=== PATIENT | female | born 1930 | race Caucasian/White ===

== ENCOUNTER 2017-03-30 15:47 | Inpatient (IN) | payer BC, OTHER ==
--- NOTE | 2017-03-30 18:37 | PDOC ---
History of Present Illness <Roxana Dooley - Last Filed: 03/30/17 21:57> - History of Present Illness Initial Comments: 03/30/17 20:32 Patient is an 86 year old female with significant medical hx of HLD, HTN, AFib ( on Xeralto/ Oxtalol), and COPD who is presenting to the ED with headache, generalized weakness, and progressive exertional dyspnea for one week. Patient characterizes her weakness as feeling tired and as if her "muscles are heavy". She states that her headache worsens with movement of her head. The patient also endorses loss of appetite. Patient was noted to have blood on her pillow on awakening two days ago. She is unsure of whether it was from epistaxis or oral bleeding, so she decided to discontinue her Xeralto. The patient denies any fevers, chills, recent illnesses, recent travel, melena, hematemesis, cough, chest pain, vertigo, hempotysis, weakness, dizziness, lightheadedness, or syncope. PMD: Joy Gan MD Surgical Hx: Right BKA <Lexi Tony - Last Filed: 03/30/17 22:57> - General Chief Complaint: Weakness Stated Complaint: NOSE BLEED (PCP SENT) Past History - Past Medical History Anemia: No Asthma: No Cancer: No Cardiac Disorders: Yes (afib) CVA: No COPD: Yes CHF: No Dementia: No Diabetes: No GI Disorders: (IBS) Disorders: No HTN: Yes Hypercholesterolemia: No Liver Disease: No Seizures: No Thyroid Disease: No - Surgical History Abdominal Surgery: No Appendectomy: Yes Cardiac Surgery: No Cholecystectomy: No GI Surgery: Yes (cystocel, rectocele, enterocele, hemorrhoids) Lung Surgery: No Neurologic Surgery: No Orthopedic Surgery: No - Immunization History Immunization Up to Date: Yes - Psycho/Social/Smoking Cessation Hx Anxiety: No Suicidal Ideation: No Smoking History: Never smoked Have you smoked in the past 12 months: No Hx Alcohol Use: No Drug/Substance Use Hx: No Substance Use Type: None <Roxana Dooley - Last Filed: 03/30/17 21:57> <Lexi Tony - Last Filed: 03/30/17 22:57> - Past Medical History Allergies/Adverse Reactions: Allergies Allergy/AdvReac Type Severity Reaction Status Date / Time No Known Allergies Allergy Verified 03/30/17 16:31 Home Medications: Ambulatory Orders Amlodipine Besylate [Norvasc -] 5 mg PO DAILY 12/03/15 Atorvastatin Ca [Lipitor] 5 mg PO HS 12/03/15 Ranitidine HCl [Zantac] 150 mg PO BID 12/03/15 Sotalol HCl [Sotalol] 40 mg PO DAILY 12/03/15 Acetaminophen [Tylenol .Regular Strength -] 325 mg PO Q6H PRN #0 tablet Aspirin [ASA -] 81 mg PO DAILY 03/30/17 Gabapentin [Neurontin -] 300 mg PO HS 03/30/17 Losartan/Hydrochlorothiazide [Losartan-Hctz 50-12.5 mg Tab] 1 each PO DAILY Rivaroxaban [Xarelto] 20 each PO HS 03/30/17 Review of Systems - Review of Systems Comments:: 03/30/17 20:32 GENERAL/CONSTITUTIONAL: Generalized weakness. Loss of appetite. No fever or chills. HEAD, EYES, EARS, NOSE AND THROAT: Questionable bleeding. No change in vision. No ear pain or discharge. No sore throat. CARDIOVASCULAR: No chest pain or shortness of breath. RESPIRATORY: Dyspnea on exertion. No cough, wheezing, or hemoptysis. GASTROINTESTINAL: No nausea, vomiting, diarrhea or constipation. GENITOURINARY: No dysuria, frequency, or change in urination. MUSCULOSKELETAL: No joint or muscle swelling or pain. No neck or back pain. ENDOCRINE: No increased thirst. No abnormal weight change. SKIN: No rash NEUROLOGIC: Headache. No vertigo, loss of consciousness, or change in strength/ sensation. <Lexi Tony - Last Filed: 03/30/17 22:57> *Physical Exam - Vital Signs Last Vital Signs Temp Pulse Resp BP Pulse Ox 95.0 F L 74 20 140/76 94 L 03/30/17 16:31 03/30/17 16:31 03/30/17 16:31 03/30/17 16:31 03/30/17 16:31 <Roxana Dooley - Last Filed: 03/30/17 21:57> - Vital Signs Last Vital Signs Temp Pulse Resp BP Pulse Ox 98.2 F 74 20 140/76 94 L 03/30/17 19:31 03/30/17 16:31 03/30/17 16:31 03/30/17 16:31 03/30/17 16:31 - Physical Exam Comments: 03/30/17 20:32 GENERAL: Awake, alert, and fully oriented, in no acute distress HEAD: No signs of trauma EYES: PERRLA, EOMI, sclera anicteric, conjunctiva clear ENT: Auricles normal inspection, hearing grossly normal, nares patent, oropharynx clear without exudates. Moist mucosa NECK: Normal ROM, supple, no lymphadenopathy, JVD, or masses LUNGS: Breath sounds equal, clear to auscultation bilaterally. No wheezes, and no crackles HEART: Regular rate and rhythm, normal S1 and S2, no murmurs, rubs or gallops ABDOMEN: Soft, nontender, normoactive bowel sounds. No guarding, no rebound. No masses EXTREMITIES: Normal range of motion, no edema. No clubbing or cyanosis. No cords, erythema, or tenderness NEUROLOGICAL: Cranial nerves II through XII grossly intact. Normal speech, normal gait SKIN: Warm, Dry, normal turgor, no rashes or lesions noted. HEMATOLOGIC/LYMPHATIC: No anemia, easy bleeding, or history of blood clots. ALLERGIC/IMMUNOLOGIC: No hives or skin allergy. <Lexi Tony - Last Filed: 03/30/17 22:57> Heart Score/ECG Review - ECG Intrepretation Rhythm: Regular Rhythm Comment:: 03/30/17 21:57 rate 66 bpm, no st elevation or depression <Roxana Dooley - Last Filed: 03/30/17 21:57> ED Treatment Course - LABORATORY CBC & Chemistry Diagram: 03/30/17 19:00 03/30/17 20:20 <Roxana Dooley - Last Filed: 03/30/17 21:57> - LABORATORY CBC & Chemistry Diagram: 03/30/17 19:00 03/30/17 20:20 - ADDITIONAL ORDERS Additional order review: Laboratory Results 03/30/17 18:52 Sodium Cancelled Potassium Cancelled Chloride Cancelled Carbon Dioxide Cancelled Anion Gap Cancelled BUN Cancelled Creatinine Cancelled Creat Clearance w eGFR Cancelled Random Glucose Cancelled Calcium Cancelled Total Bilirubin Cancelled AST Cancelled ALT Cancelled Alkaline Phosphatase Cancelled Creatine Kinase Cancelled Troponin I Cancelled Total Protein Cancelled Albumin Cancelled 03/30/17 19:00 RBC 4.00 MCV 89.0 MCHC 33.2 RDW 14.2 D MPV 8.2 D Neutrophils % 58.9 Lymphocytes % 26.3 Monocytes % 11.5 H Eosinophils % 2.4 Basophils % 0.9 - RADIOLOGY Radiograph Interpretation: 03/30/17 22:[address] Impression: No evidence of acute intracranial pathology. Reported By: Greg Howell MD - Medications Given in the ED: ED Medications Discontinued Medications Generic Name Dose Route Start Last Admin Trade Name Keiry PRN Reason Stop Dose Admin Sodium Chloride 500 ml 03/30/17 18:55 03/30/17 19:24 Normal Saline - IV 03/30/17 18:56 500 ml ONCE ONE Administration <Lexi Tony - Last Filed: 03/30/17 22:57> Medical Decision Making - Medical Decision Making 03/30/17 18:35 86 yo F h/o HTN, aortic stenosis, here wtih /co mouth bleeding/ not witness, but found blood on pillow two nights ago, held xarelto for 2 days ago, no rectal bleeding, no dysuria, no hematuria. lives at [facility], here wtih daughter. weakness generalized, nonfocal. differential: anemia, gi bleed, infection such as uti, or pna, mi, plan ekg labs ua trop cbc lytes . reassess. 03/30/17 21:29 pt has never had low sodium per d/w dr. sheriff pt with symptomatic hyponatremia. will add ct head per d/w maxwelle rpt with new headache, possibly likley due to hyponatrema. <Roxana Dooley - Last Filed: 03/30/17 21:57> *DC/Admit/Observation/Transfer - Discharge Dispostion Admit: Yes <Roxana Dooley - Last Filed: 03/30/17 21:57> - Attestations Scribe Attestion: 03/30/17 20:33 Documentation prepared by Lexi Tony, acting as medical apparatus model maker for Roxana Dooley MD. <Lexi Tony - Last Filed: 03/30/17 22:57> Diagnosis at time of Disposition: Hyponatremia syndrome - Referrals Referrals: Joy Gan [Primary Care Provider] -
[2017-03-30] MEDS ORDERED: SODIUM CHLORIDE 0.9% 1000 ML INFUS.BAG IV ONE (18:55)
[2017-03-30 19:07] LABS: BASOPHIL 0.9 % (0-2.0); EOSINOPHIL 2.4 % (0-4.5); MCH 29.5 pg (25.7-33.7); MCHC 33.2 g/dl (32.0-36.0); MEAN PLT VOLUME 8.2 fl (7.5-11.1); NEUTROPHILS 58.9 % (42.8-82.8); RDW 14.2 % (11.6-15.6); WHITE BLOOD COUNT 7.5 K/mm3 (4.0-10.0)
[2017-03-30 19:29] LABS: INR 1.12 (0.82-1.09); PROTHROMBIN TIME (PATIENT) 12.4 SEC (9.98-11.88)
[2017-03-30 20:04] LABS: URINE APPEARANCE SLCLOUDY; URINE BILIRUBIN NEGATIVE (NEGATIVE); URINE COLOR LTYELLOW; URINE GLUCOSE (UA) NEGATIVE (NEGATIVE); URINE KETONE TRACE (NEGATIVE); URINE LEUK ESTERASE NEGATIVE (NEGATIVE); URINE NITRITE NEGATIVE (NEGATIVE); URINE PROTEIN NEGATIVE (NEGATIVE); URINE UROBILINOGEN NEGATIVE E.U./dl (0.2-1.0)
[2017-03-30 20:20] LABS: PLATELET COMMENT2 MOD PLT CLUMPING
[2017-03-30 20:51] LABS: URINE BLOOD 2+ (NEGATIVE)
[2017-03-30 20:59] LABS: ALBUMIN 3.5 g/dl (3.4-5.0); ANION GAP 12 (8-16); BILIRUBIN,TOTAL 0.5 mg/dL (0.2-1.0); CALCIUM 8.5 mg/dL (8.5-10.1); CO2 25 mmol/L (21-32); COCKROFT - GAULT 55.6835; CREATININE 0.7 mg/dL (0.55-1.02); GLUCOSE,RANDOM 107 mg/dL (74-106); SGOT/AST 24 U/L (15-37); SGPT/ALT 18 U/L (12-78); TOT PROT 7.6 g/dl (6.4-8.2)
[2017-03-30 21:01] LABS: ALK PHOS 107 U/L (45-117); TROPONIN I < 0.02 ng/ml (0.00-0.05)
[2017-03-30 22:18] LABS: URINE BACTERIA MODERATE /hpf (NONE SEEN); URINE MUCUS RARE; URINE RBC 17 /hpf (0-3); URINE WBC 1 /hpf (3-5)
[2017-03-30] MEDS ORDERED: ACETAMINOPHEN 325 MG TABLET (FP) PO PRN (22:27)
[2017-03-30] MEDS ORDERED: ACETAMINOPHEN 325 MG TABLET (FP) ONE (22:32)
[2017-03-30 23:39] LABS: BASOPHIL 0.7 % (0-2.0); EOSINOPHIL 2.9 % (0-4.5); MCH 29.4 pg (25.7-33.7); MCHC 33.4 g/dl (32.0-36.0); MEAN CELL VOLUME 87.9 fl (80-96); MEAN PLT VOLUME 7.2 fl (7.5-11.1); NEUTROPHILS 60.8 % (42.8-82.8); PLATELET COUNT 206 K/MM3 (134-434); RDW 14.1 % (11.6-15.6); WHITE BLOOD COUNT 6.3 K/mm3 (4.0-10.0)
[2017-03-31 00:28] VITALS: BMI 25.6
--- NOTE | 2017-03-31 05:55 | HP ---
Admitting History and Physical - Primary Care Physician PCP: Joy Gan S - Admission Chief Complaint: epistaxis, general weakness History of Present Illness: Patient is an 86 year old female with significant medical hx of HLD, HTN, AFib ( on Xeralto), and COPD who is presenting to the ED with headache, generalized weakness, and progressive exertional dyspnea for one week. Patient characterizes her weakness as feeling tired and as if her "muscles are heavy". She states that her headache worsens with movement of her head. The patient also endorses loss of appetite. Patient was noted to have blood on her pillow on awakening two days ago. She is unsure of whether it was from epistaxis or oral bleeding, but had some blood on her nostrils so she decided to discontinue her Xeralto. The patient denies any fevers, chills, recent illnesses, recent travel, melena, hematemesis, cough, chest pain, vertigo, hempotysis, weakness, dizziness, lightheadedness, or syncope. History Source: Patient, Family Member - Past Medical History Cardiovascular: Yes: CAD, HTN, Hyperlipdemia Pulmonary: Yes: COPD Gastrointestinal: Yes: Cancer, Constipation Musculoskeletal: Yes: Chronic low back pain, Osteoarthritis - Smoking History Smoking history: Never smoked Have you smoked in the past 12 months: No - Alcohol/Substance Use Hx Alcohol Use: No History of Substance Use: reports: None - Social History Usual Living Arrangement: Yes: Alone ADL: Independent History of Recent Travel: No Home Medications - Allergies Allergies/Adverse Reactions: Allergies Allergy/AdvReac Type Severity Reaction Status Date / Time No Known Allergies Allergy Verified 03/30/17 16:31 - Home Medications Home Medications: Ambulatory Orders Amlodipine Besylate [Norvasc -] 5 mg PO DAILY 12/03/15 Atorvastatin Ca [Lipitor] 5 mg PO HS 12/03/15 Ranitidine HCl [Zantac] 150 mg PO BID 12/03/15 Sotalol HCl [Sotalol] 40 mg PO DAILY 12/03/15 Acetaminophen [Tylenol .Regular Strength -] 325 mg PO Q6H PRN #0 tablet Aspirin [ASA -] 81 mg PO DAILY 03/30/17 Gabapentin [Neurontin -] 300 mg PO HS 03/30/17 Losartan/Hydrochlorothiazide [Losartan-Hctz 50-12.5 mg Tab] 1 each PO DAILY Rivaroxaban [Xarelto] 20 each PO HS 03/30/17 Family Disease History - Family Disease History Family History: Unremarkable Review of Systems - Review of Systems Constitutional: denies: Chills, Fever, Lethargy Eyes: denies: Blind Spots, Blurred Vision, Double Vision HENT: reports: Epistaxis. denies: Difficult Swallowing, Ear Pain, Gingival Bleeding Neck: reports: Decreased ROM, Pain on Movement. denies: Stiffness, Swollen Glands, Tenderness Cardiovascular: reports: Shortness of Breath. denies: Chest Pain Respiratory: reports: Exercise Intolerance, SOB, SOB on Exertion. denies: Cough , Hemoptysis Gastrointestinal: denies: Abdominal Pain, Bloating, Constipation, Diarrhea, Vomiting, Vomiting Blood Genitourinary: reports: Burning. denies: Dysuria, Flank Pain Musculoskeletal: reports: Back Pain (chronic) Integumentary: denies: Bruising, Rash Neurological: reports: Unsteady Gait. denies: Change in LOC, Change in Speech, Confusion, Seizure, Syncope Hematology/Lymphatic: denies: Easily Bruised, Excessive Bleeding Psychiatric: reports: Altered Sleep Pattern, Anxiety, Depression. denies: Suicidal Physical Examination Vital Signs: Vital Signs Temperature 97.2 F L 03/31/17 00:16 Pulse Rate 68 03/31/17 00:16 Respiratory Rate 20 03/31/17 00:34 Blood Pressure 139/78 03/31/17 00:16 O2 Sat by Pulse Oximetry (%) 97 03/31/17 00:34 Constitutional: Yes: No Distress, Calm Eyes: Yes: Conjunctiva Clear HENT: Yes: Atraumatic Neck: Yes: Supple Cardiovascular: Yes: Regular Rate and Rhythm Respiratory: Yes: CTA Bilaterally Gastrointestinal: Yes: Soft. No: Distention, Tenderness Renal/: No: CVA Tenderness - Left, CVA Tenderness - Right, Hematuria Musculoskeletal: No: Joint Stiffness, Joint Swelling Extremities: No: Cold, Cool Edema: No Peripheral Pulses WNL: Yes Integumentary: No: Rash, Venous Stasis Changes Neurological: Yes: WNL, Alert, Oriented, Unsteady Gait. No: Lethargy, Pre- Existing Deficit ...Motor Strength: WNL Psychiatric: Yes: WNL, Alert, Oriented. No: Agitated, Suicidal Ideation Labs: CBC, BMP 03/30/17 23:00 Imaging - Results Chest X-ray: Report Reviewed Other: Report Reviewed Assessment/Plan Patient is an 86 year old female with significant medical hx of HLD, HTN, AFib ( on Xeralto/ Oxtalol), and COPD who is presenting to the ED with headache, generalized weakness, and progressive exertional dyspnea for one week. Also with one episode of epistaxis self discontinued her Xeralto. admit for ENT and cardiology eval fall pfx d/w pt do not get OOB alone, call for help if needs OOB; PT rehab and pain mngt eval bed alarm hold xarelto until cleared by ENT d/w pt and staff
[2017-03-31] MEDS: amLODIPine BESYLATE 5 MG TABLET (FP) PO SCH (10:23)
[2017-03-31] MEDS: SOTALOL HCL 80 MG TABLET (FP) PO SCH (10:23)
[2017-03-31] MEDS: RANITIDINE HCL 150 MG TABLET (FP) PO SCH ×2 (10:23→21:51)
[2017-03-31] MEDS: LOSARTAN POTASSIUM 50 MG TABLET (FP) PO SCH (10:23)
[2017-03-31] MEDS: ASPIRIN 81 MG CHEWABLE TABLETS PO SCH (10:23)
[2017-03-31] MEDS: HEPARIN NA (PORCINE) 5,000 UNITS/ML 1ML VIAL SQ SCH ×2 (10:24→21:51)
[2017-03-31 11:07] LABS: ALBUMIN 3.3 g/dl (3.4-5.0); ANION GAP 11 (8-16); BILIRUBIN,TOTAL 0.5 mg/dL (0.2-1.0); CALCIUM 8.6 mg/dL (8.5-10.1); CO2 29 mmol/L (21-32); COCKROFT - GAULT 55.6835; CREATININE 0.7 mg/dL (0.55-1.02); GLUCOSE,RANDOM 113 mg/dL (74-106); SGOT/AST 21 U/L (15-37); SGPT/ALT 18 U/L (12-78)
[2017-03-31 11:17] LABS: ALK PHOS 106 U/L (45-117); THYROID STIMULATING HORMONE 1.95 uIU/ml (0.358-3.74); TOT PROT 7.3 g/dl (6.4-8.2); TROPONIN I < 0.02 ng/ml (0.00-0.05)
[2017-03-31] MEDS: SODIUM CHLORIDE 1 GM TABLET PO SCH (15:24)
--- NOTE | 2017-03-31 16:16 | EKG ---
Test Reason : Blood Pressure : / mmHG Vent. Rate : 066 BPM Atrial Rate : 066 BPM P-R Int : 214 ms QRS Dur : 084 ms QT Int : 460 ms P-R-T Axes : -10 052 045 degrees QTc Int : 482 ms SINUS RHYTHM WITH 1ST DEGREE A-V BLOCK NONSPECIFIC ST AND T WAVE ABNORMALITY ABNORMAL ECG WHEN COMPARED WITH ECG OF 08-DEC-2015 14:54, QUESTIONABLE CHANGE IN QRS AXIS T WAVE INVERSION NO LONGER EVIDENT IN INFERIOR LEADS Confirmed by MESHA JACKSON MD ([id number]) on 03/31/2017 4:15:41 PM Referred By: Confirmed By:MESHA JACKSON MD
[2017-03-31] MEDS ORDERED: diphenhydrAMINE HCL 25 MG CAPSULE (FP) PO STA (21:36)
[2017-03-31] MEDS: ATORVASTATIN CA 10 MG TABLET (FP) PO SCH (21:48)
[2017-03-31] MEDS: GABAPENTIN 300 MG CAPSULE (FP) PO SCH (21:51)
--- NOTE | 2017-04-01 06:19 | CON.CARD ---
Consult Consult Specialty:: cardiology Reason for Consultation:: epistaxsis - History of Present Illness Chief Complaint: Alert; easily fatigued (eg cannot finish her meal, saying it makes her tired and short of breath). History of Present Illness: Patient is an 86 year old woman with significant medical hx of severe aortic stenosis, HLD, HTN, AFib (on Xeralto/ Oxtalol), diastolic CHF, anxiety/ depression (worsened by the of her son late last year), and COPD, who is presenting to the ED with headache, generalized weakness, and progressive exertional dyspnea for one week. Patient characterizes her weakness as feeling tired and as if her "muscles are heavy". She states that her headache worsens with movement of her head. The patient also endorses loss of appetite. Patient was noted to have blood on her pillow on awakening two days ago. She is unsure of whether it was from epistaxis or oral bleeding, so she decided to discontinue her Xeralto. The patient denies any fevers, chills, recent illnesses, recent travel, melena, hematemesis, cough, chest pain, vertigo, hempotysis, weakness, dizziness, lightheadedness, or syncope. PMD: Joy Gan MD Surgical Hx: Right BKA - History Source History Provided By: Patient, Family Member, Medical Record Limitations to Obtaining History: No Limitations - Past Medical History Cardio/Vascular: Yes: AFIB, Aortic Stenosis, CAD, HTN, Hyperlipdemia, Murmur, Pulmonary Hypertension Pulmonary: Yes: COPD Gastrointestinal: Yes: Cancer, Constipation Renal/: Yes: Renal Inusuff Reproductive: Yes: Postmenopausal ...: No Psych: Yes: Anxiety, Depression - Past Surgical History Additional Surgical History: coronary angiogram; s/p LE pseudoaneurysm - Alcohol/Substance Use Hx Alcohol Use: No History of Substance Use: reports: None - Smoking History Smoking history: Never smoked Have you smoked in the past 12 months: No - Social History ADL: Independent History of Recent Travel: No Home Medications - Allergies Allergies/Adverse Reactions: Allergies Allergy/AdvReac Type Severity Reaction Status Date / Time No Known Allergies Allergy Verified 03/30/17 16:31 - Home Medications Home Medications: Ambulatory Orders Amlodipine Besylate [Norvasc -] 5 mg PO DAILY 12/03/15 Atorvastatin Ca [Lipitor] 5 mg PO HS 12/03/15 Ranitidine HCl [Zantac] 150 mg PO BID 12/03/15 Sotalol HCl [Sotalol] 40 mg PO DAILY 12/03/15 Acetaminophen [Tylenol .Regular Strength -] 325 mg PO Q6H PRN #0 tablet Aspirin [ASA -] 81 mg PO DAILY 03/30/17 Gabapentin [Neurontin -] 300 mg PO HS 03/30/17 Losartan/Hydrochlorothiazide [Losartan-Hctz 50-12.5 mg Tab] 1 each PO DAILY Rivaroxaban [Xarelto] 20 each PO HS 03/30/17 Family Disease History - Family Disease History Family History: Denies Review of Systems - Review of Systems Constitutional: reports: Loss of Appetite, Weakness Eyes: reports: No Symptoms HENT: reports: Epistaxis Neck: reports: No Symptoms Cardiovascular: reports: Shortness of Breath Respiratory: reports: SOB on Exertion Gastrointestinal: reports: No Symptoms Genitourinary: reports: No Symptoms Breasts: reports: No Symptoms Reported Musculoskeletal: reports: Muscle Weakness Integumentary: reports: No Symptoms Neurological: reports: Weakness Endocrine: reports: No Symptoms Hematology/Lymphatic: reports: No Symptoms Psychiatric: reports: Anxiety, Depression - Risk Factors Known Risk Factors: Yes: Age, Physical Inactivity, Other (severe aortic stenosis ; pulmonary HTN) Vital Signs: Vital Signs Temperature 97.5 F L 03/31/17 21:46 Pulse Rate 71 03/31/17 21:46 Respiratory Rate 20 03/31/17 21:46 Blood Pressure 146/78 03/31/17 21:46 O2 Sat by Pulse Oximetry (%) 96 03/31/17 22:00 Constitutional: Yes: Anxious Eyes: Yes: WNL HENT: Yes: WNL Neck: Yes: WNL Respiratory: Yes: SOB on Exertion Gastrointestinal: Yes: WNL Renal/: No: Anuria Cardiovascular: Yes: Regular Rate and Rhythm JVD: No Carotid Bruit: No PMI: Non-Displaced Heart Sounds: Yes: S1 (split) Murmur: Yes: Systolic Murmur, Grade 3 Musculoskeletal: Yes: Muscle Weakness Extremities: Yes: WNL Edema: No Peripheral Pulses WNL: No Peripheral Pulses: 1+ Right Carotid Integumentary: Yes: WNL Neurological: Yes: Alert, Oriented, Weakness Psychiatric: Yes: Alert, Oriented, Other (depression) - Other Data Labs, Other Data: CBC, BMP 03/30/17 23:00 03/31/17 09:54 INR, PTT INR 1.12 (0.82-1.09) 03/30/17 18:52 Troponin, BNP 03/31/17 09:54 Troponin I < 0.02 Troponin, BNP 03/31/17 09:54 Troponin I < 0.02 Abnormal Lab Results 03/31/17 09:54 Sodium 126 L Chloride 86 L Random Glucose 113 H Albumin 3.3 L Echo: Image Reviewed (normal LVEF and LV size; mild LVH; severe aortic stenosis) Ejection Fraction %: LVEF > or = 40 % Imaging - Results Chest X-ray: Image Reviewed (bilateral interstitial lung disease) EKG: Image Reviewed (normal sinus rhythm; nonspecific ST-T changes) Problem List - Problems (1) Atrial fibrillation Assessment/Plan: On sotalol. Anticoagulant held while pt undergoes ENT workup. Code(s): I48.91 - UNSPECIFIED ATRIAL FIBRILLATION (2) COPD (chronic obstructive pulmonary disease) Assessment/Plan: f/u with electrical manager Code(s): J44.9 - CHRONIC OBSTRUCTIVE PULMONARY DISEASE, UNSPECIFIED (3) HTN (hypertension) Assessment/Plan: On sotalol, amlodipine, and ARB. Code(s): I10 - ESSENTIAL (PRIMARY) HYPERTENSION (4) Hyponatremia Assessment/Plan: being given saline; f/u electrolytes, workup. Code(s): E87.1 - HYPO-OSMOLALITY AND HYPONATREMIA (5) Severe aortic stenosis Assessment/Plan: Long discussion was had with pt (granddaughter present during the second visit) . Pt says that, after the of her son 08/2016, she lost the will to live, and does not want to have aortic valve surgery (TAVR). Complications after a coronary angiogram (pseudoaneurysm) also makes her reluctant to have any more procedures. Code(s): I35.0 - NONRHEUMATIC AORTIC (VALVE) STENOSIS (6) Diastolic CHF Code(s): I50.30 - UNSPECIFIED DIASTOLIC (CONGESTIVE) HEART FAILURE (7) Depression Assessment/Plan: Psychologic workup (pt says she has lost the will to live since the of her son 08/2016). Code(s): F32.9 - MAJOR DEPRESSIVE DISORDER, SINGLE EPISODE, UNSPECIFIED
[2017-04-01 08:35] LABS: BASOPHIL 0.9 % (0-2.0); EOSINOPHIL 4.7 % (0-4.5); MCH 30.1 pg (25.7-33.7); MCHC 34.1 g/dl (32.0-36.0); MEAN CELL VOLUME 88.1 fl (80-96); MEAN PLT VOLUME 7.8 fl (7.5-11.1); NEUTROPHILS 55.6 % (42.8-82.8); PLATELET COUNT 186 K/MM3 (134-434); RDW 13.9 % (11.6-15.6); WHITE BLOOD COUNT 5.6 K/mm3 (4.0-10.0)
[2017-04-01 09:05] LABS: CALCIUM 8.1 mg/dL (8.5-10.1); COCKROFT - GAULT 48.722; CREATININE 0.8 mg/dL (0.55-1.02)
[2017-04-01] MEDS ORDERED: PT OWN MED DRAWER 7, Y5N ONE (09:38)
[2017-04-01] MEDS: ASPIRIN 81 MG CHEWABLE TABLETS PO SCH (09:41)
[2017-04-01] MEDS: amLODIPine BESYLATE 5 MG TABLET (FP) PO SCH (09:42)
[2017-04-01] MEDS: HEPARIN NA (PORCINE) 5,000 UNITS/ML 1ML VIAL SQ SCH ×2 (09:42→21:50)
[2017-04-01] MEDS: LOSARTAN POTASSIUM 50 MG TABLET (FP) PO SCH (09:42)
[2017-04-01] MEDS: RANITIDINE HCL 150 MG TABLET (FP) PO SCH ×2 (09:42→21:48)
[2017-04-01] MEDS: SODIUM CHLORIDE 1 GM TABLET PO SCH (09:42)
[2017-04-01] MEDS: SOTALOL HCL 80 MG TABLET (FP) PO SCH (09:42)
--- NOTE | 2017-04-01 10:01 | PN ---
Progress Note, Physician History of Present Illness: seen and examined today in nad. no overnight events. no new complaints. thinking about AVR - Current Medication List Current Medications: Active Medications Acetaminophen (Tylenol -) 325 mg PO Q6H PRN PRN Reason: PAIN LEVEL 6-10 Last Admin: 03/30/17 22:39 Dose: 325 mg Amlodipine Besylate (Norvasc -) 5 mg PO DAILY [facility] Last Admin: 04/01/17 09:42 Dose: 5 mg Aspirin (Asa -) 81 mg PO DAILY [facility] Last Admin: 04/01/17 09:41 Dose: 81 mg Atorvastatin Calcium (Lipitor -) 5 mg PO HS [facility] Last Admin: 03/31/17 21:48 Dose: 5 mg Gabapentin (Neurontin -) 300 mg PO HS [facility] Last Admin: 03/31/17 21:51 Dose: 300 mg Heparin Sodium (Porcine) (Heparin -) 5,000 unit SQ BID [facility] Last Admin: 04/01/17 09:42 Dose: 5,000 unit Losartan Potassium (Cozaar -) 50 mg PO DAILY [facility] Last Admin: 04/01/17 09:42 Dose: 50 mg Ranitidine HCl (Zantac -) 150 mg PO BID [facility] Last Admin: 04/01/17 09:42 Dose: 150 mg Sodium Chloride (Sodium Chloride Tablet -) 1 gm PO DAILY [facility] Last Admin: 04/01/17 09:42 Dose: 1 gm Sotalol HCl (Betapace -) 40 mg PO DAILY [facility] Last Admin: 04/01/17 09:42 Dose: 40 mg - Objective Vital Signs: Vital Signs Temperature 97.7 F 04/01/17 06:00 Pulse Rate 75 04/01/17 06:00 Respiratory Rate 20 04/01/17 06:00 Blood Pressure 117/71 04/01/17 06:00 O2 Sat by Pulse Oximetry (%) 96 03/31/17 22:00 Constitutional: Yes: Well Nourished, No Distress, Calm Eyes: Yes: WNL, Conjunctiva Clear, EOM Intact, PERRL HENT: Yes: WNL, Atraumatic, Normocephalic Neck: Yes: WNL, Supple, Trachea Midline Cardiovascular: Yes: Regular Rate and Rhythm, Murmur, S1. No: Bradycardia, Tachycardia, Pulse Irregular, Bruit, JVD, Gallop, Rub, S2, S3, S4, Varicosities Respiratory: Yes: WNL, Regular, CTA Bilaterally. No: Rales, Rhonchi, Wheezes Gastrointestinal: Yes: WNL, Normal Bowel Sounds, Soft. No: Distention, Tenderness Musculoskeletal: Yes: WNL Extremities: Yes: WNL Edema: No Peripheral Pulses WNL: Yes Peripheral Pulses: Left Doralis Pedis: 2+, Right Dorsalis Pedis: 2+ Integumentary: Yes: WNL Neurological: Yes: Alert, Oriented, Cran Nerves II-XII Intact Psychiatric: Yes: Alert, Oriented Labs: CBC, BMP 04/01/17 07:00 04/01/17 07:00 INR, PTT INR 1.12 (0.82-1.09) 03/30/17 18:52 - ....Imaging Chest X-ray: Report Reviewed, Image Reviewed EKG: Report Reviewed, Image Reviewed Other: Report Reviewed, Image Reviewed Assessment/Plan 86 year old woman with a history of severe refused SAVR/TAVR in past, HTN, HLD, afib, chronic diastolic CHF, depression, COPD admitted with gen weakness, headache, moran, oral bleeding. Atrial fibrillation-controlled -cont sotalol, monitor EKG routinely on sotalol for QTc prolongation -of Xarelto for bleeding until ENT evaluation which is pending -cont ASA 81mg daily for now Severe Aortic Stenosis-refused SAVR/TAVR in past -pt reconsidering AVR this am, she will think about it further and discuss with family then discuss further with her electrician wiring Dr. Medrano HTN-adequately controlled currently -cont current meds Chronic diastolic CHF-currently euvolemic -does not require diuresis at this time HLD -cont statin
--- NOTE | 2017-04-01 11:04 | PN ---
Progress Note, Physician Chief Complaint: in bed nad no new c/o; no new epistaxis or bleed but not seen by ENT yet, called in consult seen by cardio; suggested surgical eval for airtic stenosis but pt reluctant to have surgery - Current Medication List Current Medications: Active Medications Acetaminophen (Tylenol -) 325 mg PO Q6H PRN PRN Reason: PAIN LEVEL 6-10 Last Admin: 03/30/17 22:39 Dose: 325 mg Amlodipine Besylate (Norvasc -) 5 mg PO DAILY [facility] Last Admin: 04/01/17 09:42 Dose: 5 mg Aspirin (Asa -) 81 mg PO DAILY [facility] Last Admin: 04/01/17 09:41 Dose: 81 mg Atorvastatin Calcium (Lipitor -) 5 mg PO HS [facility] Last Admin: 03/31/17 21:48 Dose: 5 mg Gabapentin (Neurontin -) 300 mg PO HS [facility] Last Admin: 03/31/17 21:51 Dose: 300 mg Heparin Sodium (Porcine) (Heparin -) 5,000 unit SQ BID [facility] Last Admin: 04/01/17 09:42 Dose: 5,000 unit Losartan Potassium (Cozaar -) 50 mg PO DAILY [facility] Last Admin: 04/01/17 09:42 Dose: 50 mg Ranitidine HCl (Zantac -) 150 mg PO BID [facility] Last Admin: 04/01/17 09:42 Dose: 150 mg Sodium Chloride (Sodium Chloride Tablet -) 1 gm PO DAILY [facility] Last Admin: 04/01/17 09:42 Dose: 1 gm Sotalol HCl (Betapace -) 40 mg PO DAILY [facility] Last Admin: 04/01/17 09:42 Dose: 40 mg - Objective Vital Signs: Vital Signs Temperature 97.7 F 04/01/17 06:00 Pulse Rate 75 04/01/17 06:00 Respiratory Rate 20 04/01/17 06:00 Blood Pressure 117/71 04/01/17 06:00 O2 Sat by Pulse Oximetry (%) 96 03/31/17 22:00 Constitutional: Yes: No Distress, Calm Eyes: Yes: Conjunctiva Clear HENT: Yes: Atraumatic Neck: Yes: Supple Cardiovascular: Yes: Regular Rate and Rhythm Respiratory: Yes: CTA Bilaterally Gastrointestinal: Yes: Soft. No: Distention, Tenderness Genitourinary: No: CVA Tenderness - Left, CVA Tenderness - Right Musculoskeletal: No: Joint Stiffness, Joint Swelling Extremities: No: Cold, Cool Edema: No Integumentary: No: Rash, Venous Stasis Changes Neurological: Yes: WNL, Alert, Oriented ...Motor Strength: WNL Psychiatric: Yes: WNL, Alert, Oriented. No: Agitated Labs: CBC, BMP 04/01/17 07:00 04/01/17 07:00 INR, PTT INR 1.12 (0.82-1.09) 03/30/17 18:52 - ....Imaging Other: Report Reviewed Assessment/Plan Patient is an 86 year old female with significant medical hx of HLD, HTN, AFib ( on Xeralto/ Oxtalol), and COPD who is presenting to the ED with headache, generalized weakness, and progressive exertional dyspnea for one week. Also with one episode of epistaxis self discontinued her Xeralto. admitted for ENT and cardiology eval fall pfx d/w pt do not get OOB alone, call for help if needs OOB; PT rehab and pain mngt eval bed alarm hold xarelto until cleared by ENT d/w pt and staff
--- NOTE | 2017-04-01 19:39 | CONSULT ---
Consult Consult Specialty:: neck pain Referred by:: albina Reason for Consultation:: neck pain - History of Present Illness Chief Complaint: neck pain History of Present Illness: 86 year old woman with significant medical hx of severe aortic stenosis, HLD, HTN, AFib (on Xeralto/ Oxtalol), diastolic CHF, anxiety/depression (worsened by the of her son late last year), and COPD/. THe patient has been having severe neck pain for the last several weeks managed by dr duran from [facility]. she reports history of arthritis and scoliosis - Past Medical History Cardio/Vascular: Yes: AFIB, Aortic Stenosis, CAD, HTN, Hyperlipdemia, Murmur, Pulmonary Hypertension Pulmonary: Yes: COPD Gastrointestinal: Yes: Cancer, Constipation Renal/: Yes: Renal Inusuff ...: No Psych: Yes: Anxiety, Depression - Past Surgical History Additional Surgical History: coronary angiogram; s/p LE pseudoaneurysm - Alcohol/Substance Use Hx Alcohol Use: No History of Substance Use: reports: None - Smoking History Smoking history: Never smoked Have you smoked in the past 12 months: No - Social History ADL: Independent History of Recent Travel: No Home Medications - Allergies Allergies/Adverse Reactions: Allergies Allergy/AdvReac Type Severity Reaction Status Date / Time No Known Allergies Allergy Verified 03/30/17 16:31 - Home Medications Home Medications: Ambulatory Orders Amlodipine Besylate [Norvasc -] 5 mg PO DAILY 12/03/15 Atorvastatin Ca [Lipitor] 5 mg PO HS 12/03/15 Ranitidine HCl [Zantac] 150 mg PO BID 12/03/15 Sotalol HCl [Sotalol] 40 mg PO DAILY 12/03/15 Acetaminophen [Tylenol .Regular Strength -] 325 mg PO Q6H PRN #0 tablet Aspirin [ASA -] 81 mg PO DAILY 03/30/17 Gabapentin [Neurontin -] 300 mg PO HS 03/30/17 Losartan/Hydrochlorothiazide [Losartan-Hctz 50-12.5 mg Tab] 1 each PO DAILY Rivaroxaban [Xarelto] 20 each PO HS 03/30/17 Physical Exam Vital Signs: Vital Signs Temperature 99.8 F H 04/01/17 18:10 Pulse Rate 71 04/01/17 09:00 Respiratory Rate 20 04/01/17 09:00 Blood Pressure 112/78 04/01/17 18:10 O2 Sat by Pulse Oximetry (%) 96 03/31/17 22:00 Neck: Yes: Tenderness Labs: CBC, BMP 04/01/17 07:00 04/01/17 07:00 Assessment/Plan Neck pain secondary to severe degenerative changes 1. Physical therapy/REHAB 2.No further injections as patient had several with dr Duran at [facility] with minimal relief. 3. Lidocaine ointment, tylenol prn pain, gabapentin at bedtime. COnsider tramadol prn pain
[2017-04-01] MEDS: GABAPENTIN 300 MG CAPSULE (FP) PO SCH (21:48)
[2017-04-01] MEDS: ATORVASTATIN CA 10 MG TABLET (FP) PO SCH (21:48)
[2017-04-01] MEDS: diphenhydrAMINE HCL 25 MG CAPSULE (FP) PO PRN (22:38)
[2017-04-02] MEDS ORDERED: PT OWN MED DRAWER 7, Y5N ONE (09:07)
[2017-04-02] MEDS: SOTALOL HCL 80 MG TABLET (FP) PO SCH (09:11)
[2017-04-02] MEDS: ASPIRIN 81 MG CHEWABLE TABLETS PO SCH (09:11)
[2017-04-02] MEDS: amLODIPine BESYLATE 5 MG TABLET (FP) PO SCH (09:12)
[2017-04-02] MEDS: HEPARIN NA (PORCINE) 5,000 UNITS/ML 1ML VIAL SQ SCH ×2 (09:12→21:58)
[2017-04-02] MEDS: SODIUM CHLORIDE 1 GM TABLET PO SCH (09:12)
[2017-04-02] MEDS: RANITIDINE HCL 150 MG TABLET (FP) PO SCH ×2 (09:12→21:58)
[2017-04-02] MEDS: LOSARTAN POTASSIUM 50 MG TABLET (FP) PO SCH (09:12)
--- NOTE | 2017-04-02 10:30 | PN ---
Progress Note, Physician History of Present Illness: seen and examined today in nad. no overnight events. no new complaints. - Current Medication List Current Medications: Active Medications Acetaminophen (Tylenol -) 325 mg PO Q6H PRN PRN Reason: PAIN LEVEL 6-10 Last Admin: 03/30/17 22:39 Dose: 325 mg Amlodipine Besylate (Norvasc -) 5 mg PO DAILY [facility] Last Admin: 04/02/17 09:12 Dose: 5 mg Aspirin (Asa -) 81 mg PO DAILY [facility] Last Admin: 04/02/17 09:11 Dose: 81 mg Atorvastatin Calcium (Lipitor -) 5 mg PO HS [facility] Last Admin: 04/01/17 21:48 Dose: 5 mg Diphenhydramine HCl (Benadryl -) 25 mg PO HS PRN PRN Reason: INSOMNIA Last Admin: 04/01/17 22:38 Dose: 25 mg Gabapentin (Neurontin -) 300 mg PO HS [facility] Last Admin: 04/01/17 21:48 Dose: 300 mg Heparin Sodium (Porcine) (Heparin -) 5,000 unit SQ BID [facility] Last Admin: 04/02/17 09:12 Dose: 5,000 unit Losartan Potassium (Cozaar -) 50 mg PO DAILY [facility] Last Admin: 04/02/17 09:12 Dose: 50 mg Ranitidine HCl (Zantac -) 150 mg PO BID [facility] Last Admin: 04/02/17 09:12 Dose: 150 mg Sodium Chloride (Sodium Chloride Tablet -) 1 gm PO DAILY [facility] Last Admin: 04/02/17 09:12 Dose: 1 gm Sotalol HCl (Betapace -) 40 mg PO DAILY [facility] Last Admin: 04/02/17 09:11 Dose: 40 mg - Objective Vital Signs: Vital Signs Temperature 98.2 F 04/02/17 06:00 Pulse Rate 70 04/02/17 06:00 Respiratory Rate 20 04/02/17 06:00 Blood Pressure 99/56 04/02/17 06:00 O2 Sat by Pulse Oximetry (%) 96 04/01/17 22:00 Constitutional: Yes: Well Nourished, No Distress, Calm Eyes: Yes: WNL, Conjunctiva Clear, EOM Intact, PERRL HENT: Yes: WNL, Atraumatic, Normocephalic Neck: Yes: WNL, Supple, Trachea Midline Cardiovascular: Yes: Regular Rate and Rhythm, Murmur, S1. No: Bradycardia, Tachycardia, Pulse Irregular, Bruit, JVD, Gallop, Rub, S2, S3, S4, Varicosities Respiratory: Yes: WNL, Regular, CTA Bilaterally. No: Rales, Rhonchi, Wheezes Gastrointestinal: Yes: WNL, Normal Bowel Sounds, Soft. No: Distention, Tenderness Musculoskeletal: Yes: Muscle Weakness Extremities: Yes: WNL Edema: No Peripheral Pulses WNL: Yes Peripheral Pulses: Left Doralis Pedis: 2+, Right Dorsalis Pedis: 2+ Integumentary: Yes: WNL Neurological: Yes: Alert, Oriented, Cran Nerves II-XII Intact Psychiatric: Yes: Alert, Oriented Labs: CBC, BMP 04/01/17 07:00 04/01/17 07:00 INR, PTT INR 1.12 (0.82-1.09) 03/30/17 18:52 - ....Imaging Chest X-ray: Report Reviewed, Image Reviewed EKG: Report Reviewed, Image Reviewed Other: Report Reviewed, Image Reviewed Assessment/Plan 86 year old woman with a history of severe refused SAVR/TAVR in past, HTN, HLD, afib, chronic diastolic CHF, depression, COPD admitted with gen weakness, headache, moran, oral bleeding. Atrial fibrillation-controlled -cont sotalol, monitor EKG routinely on sotalol for QTc prolongation -plan to likely resume Xarelto if ENT evaluation shows no source of bleeding, ENT evaluation is pending -cont ASA 81mg daily for now Severe Aortic Stenosis-refused SAVR/TAVR in past -discussed possible AVR with patient again this am. She again cites the of her son and that she is elderly and doesnt want to go through procedures and also doesnt want to put her family through it. She is leaning strongly towards not pursuing further treatment. She will discuss further with Dr. Medrano. HTN-adequately controlled currently, low normal at times -cont current meds Chronic diastolic CHF-currently euvolemic -does not require diuresis at this time HLD -cont statin
--- NOTE | 2017-04-02 12:12 | PN ---
Progress Note, Physician Chief Complaint: in bed no new c/o; still reluctant to have aortic valve surgery no epistaxis or bleed but still not seen by ENT, called - Current Medication List Current Medications: Active Medications Acetaminophen (Tylenol -) 325 mg PO Q6H PRN PRN Reason: PAIN LEVEL 6-10 Last Admin: 03/30/17 22:39 Dose: 325 mg Amlodipine Besylate (Norvasc -) 5 mg PO DAILY [facility] Last Admin: 04/02/17 09:12 Dose: 5 mg Aspirin (Asa -) 81 mg PO DAILY [facility] Last Admin: 04/02/17 09:11 Dose: 81 mg Atorvastatin Calcium (Lipitor -) 5 mg PO HS [facility] Last Admin: 04/01/17 21:48 Dose: 5 mg Diphenhydramine HCl (Benadryl -) 25 mg PO HS PRN PRN Reason: INSOMNIA Last Admin: 04/01/17 22:38 Dose: 25 mg Gabapentin (Neurontin -) 300 mg PO HS [facility] Last Admin: 04/01/17 21:48 Dose: 300 mg Heparin Sodium (Porcine) (Heparin -) 5,000 unit SQ BID [facility] Last Admin: 04/02/17 09:12 Dose: 5,000 unit Losartan Potassium (Cozaar -) 50 mg PO DAILY [facility] Last Admin: 04/02/17 09:12 Dose: 50 mg Ranitidine HCl (Zantac -) 150 mg PO BID [facility] Last Admin: 04/02/17 09:12 Dose: 150 mg Sodium Chloride (Sodium Chloride Tablet -) 1 gm PO DAILY [facility] Last Admin: 04/02/17 09:12 Dose: 1 gm Sotalol HCl (Betapace -) 40 mg PO DAILY [facility] Last Admin: 04/02/17 09:11 Dose: 40 mg - Objective Vital Signs: Vital Signs Temperature 98.2 F 04/02/17 06:00 Pulse Rate 70 04/02/17 06:00 Respiratory Rate 20 04/02/17 06:00 Blood Pressure 99/56 04/02/17 06:00 O2 Sat by Pulse Oximetry (%) 96 04/01/17 22:00 Constitutional: Yes: No Distress, Calm Eyes: Yes: Conjunctiva Clear HENT: Yes: Atraumatic Neck: Yes: Supple Cardiovascular: Yes: Regular Rate and Rhythm Respiratory: Yes: CTA Bilaterally Gastrointestinal: Yes: Soft. No: Distention, Tenderness Genitourinary: No: CVA Tenderness - Left, CVA Tenderness - Right Musculoskeletal: No: Joint Stiffness, Joint Swelling Extremities: No: Cold, Cool Edema: No Integumentary: No: Rash, Venous Stasis Changes Neurological: Yes: WNL, Alert, Oriented ...Motor Strength: WNL Psychiatric: Yes: WNL, Alert, Oriented. No: Agitated, Suicidal Ideation Labs: CBC, BMP 04/01/17 07:00 04/01/17 07:00 INR, PTT INR 1.12 (0.82-1.09) 03/30/17 18:52 - ....Imaging Other: Report Reviewed Assessment/Plan Patient is an 86 year old female with significant medical hx of HLD, HTN, AFib ( on Xeralto/ Oxtalol), and COPD who is presenting to the ED with headache, generalized weakness, and progressive exertional dyspnea for one week. Also with one episode of epistaxis self discontinued her Xeralto. admitted for ENT and cardiology eval aortic stenosis - advised to f/u with cardiology and CT surgery to discuss pros and cons for surgery. Pt still reluctant to do it. fall pfx d/w pt do not get OOB alone, call for help if needs OOB; PT rehab and pain mngt eval bed alarm hold xarelto until cleared by ENT d/w pt and staff
[2017-04-02] MEDS: diphenhydrAMINE HCL 25 MG CAPSULE (FP) PO PRN (21:58)
[2017-04-02] MEDS: ATORVASTATIN CA 10 MG TABLET (FP) PO SCH (21:58)
[2017-04-02] MEDS: GABAPENTIN 300 MG CAPSULE (FP) PO SCH (22:00)
[2017-04-03] MEDS ORDERED: PT OWN MED DRAWER 7, Y5N ONE ×2 (09:08→21:45)
[2017-04-03] MEDS: ASPIRIN 81 MG CHEWABLE TABLETS PO SCH (09:12)
[2017-04-03] MEDS: SODIUM CHLORIDE 1 GM TABLET PO SCH (09:12)
[2017-04-03] MEDS: RANITIDINE HCL 150 MG TABLET (FP) PO SCH ×2 (09:12→21:51)
[2017-04-03] MEDS: LOSARTAN POTASSIUM 50 MG TABLET (FP) PO SCH (09:12)
[2017-04-03] MEDS: amLODIPine BESYLATE 5 MG TABLET (FP) PO SCH (09:12)
[2017-04-03] MEDS: SOTALOL HCL 80 MG TABLET (FP) PO SCH (09:13)
[2017-04-03] MEDS: HEPARIN NA (PORCINE) 5,000 UNITS/ML 1ML VIAL SQ SCH (09:13)
--- NOTE | 2017-04-03 15:12 | PN ---
Progress Note, Physician - Current Medication List Current Medications: Active Medications Acetaminophen (Tylenol -) 325 mg PO Q6H PRN PRN Reason: PAIN LEVEL 6-10 Last Admin: 03/30/17 22:39 Dose: 325 mg Amlodipine Besylate (Norvasc -) 5 mg PO DAILY [facility] Last Admin: 04/03/17 09:12 Dose: 5 mg Aspirin (Asa -) 81 mg PO DAILY [facility] Last Admin: 04/03/17 09:12 Dose: 81 mg Atorvastatin Calcium (Lipitor -) 5 mg PO HS [facility] Last Admin: 04/02/17 21:58 Dose: 5 mg Diphenhydramine HCl (Benadryl -) 25 mg PO HS PRN PRN Reason: INSOMNIA Last Admin: 04/02/17 21:58 Dose: 25 mg Gabapentin (Neurontin -) 300 mg PO HS [facility] Last Admin: 04/02/17 22:00 Dose: 300 mg Heparin Sodium (Porcine) (Heparin -) 5,000 unit SQ BID [facility] Last Admin: 04/03/17 09:13 Dose: 5,000 unit Losartan Potassium (Cozaar -) 50 mg PO DAILY [facility] Last Admin: 04/03/17 09:12 Dose: 50 mg Ranitidine HCl (Zantac -) 150 mg PO BID [facility] Last Admin: 04/03/17 09:12 Dose: 150 mg Sodium Chloride (Sodium Chloride Tablet -) 1 gm PO DAILY [facility] Last Admin: 04/03/17 09:12 Dose: 1 gm Sotalol HCl (Betapace -) 40 mg PO DAILY [facility] Last Admin: 04/03/17 09:13 Dose: 40 mg - Objective Vital Signs: Vital Signs Temperature 98.3 F 04/03/17 14:00 Pulse Rate 70 04/03/17 14:00 Respiratory Rate 18 04/03/17 09:11 Blood Pressure 117/65 04/03/17 14:00 O2 Sat by Pulse Oximetry (%) 96 04/03/17 09:00 Eyes: Yes: WNL, Conjunctiva Clear, EOM Intact HENT: Yes: WNL, Atraumatic, Normocephalic Neck: Yes: WNL, Supple, Trachea Midline Cardiovascular: Yes: WNL, Regular Rate and Rhythm, Murmur, S1, S2 Respiratory: Yes: WNL, Regular, CTA Bilaterally Gastrointestinal: Yes: WNL, Normal Bowel Sounds Genitourinary: Yes: WNL Musculoskeletal: Yes: WNL Extremities: Yes: WNL Edema: No Integumentary: Yes: WNL Neurological: Yes: WNL, Alert, Oriented ...Motor Strength: WNL Psychiatric: Yes: WNL Labs: CBC, BMP 04/01/17 07:00 04/01/17 07:00 INR, PTT INR 1.12 (0.82-1.09) 03/30/17 18:52 Assessment/Plan 86 year old woman with a history of severe refused SAVR/TAVR in past, HTN, HLD, afib, chronic diastolic CHF, depression, COPD admitted with gen weakness, headache, moran, oral bleeding. Atrial fibrillation-controlled -cont sotalol, monitor EKG routinely on sotalol for QTc prolongation -plan to likely resume Xarelto if ENT evaluation shows no source of bleeding, ENT evaluation is pending -cont ASA 81mg daily for now Severe Aortic Stenosis-refused SAVR/TAVR in past -discussed possible AVR with patient again this am. She again cites the of her son and that she is elderly and doesnt want to go through procedures and also doesnt want to put her family through it. She is leaning strongly towards not pursuing further treatment. She will discuss further with Dr. Medrano. HTN-adequately controlled currently, low normal at times -cont current meds Chronic diastolic CHF-currently euvolemic -does not require diuresis at this time HLD -cont statin patient states that her daughter found a new procedure for her and she would agree to it - it is unclear wheteher she is referring to TAVR. Future plans to be discussed between the daughter and dr. Medrano.
--- NOTE | 2017-04-03 17:06 | PN ---
Progress Note, Physician Chief Complaint: in bed nad no nose bleed seen by cardiology, ENT still pending - Current Medication List Current Medications: Active Medications Acetaminophen (Tylenol -) 325 mg PO Q6H PRN PRN Reason: PAIN LEVEL 6-10 Last Admin: 03/30/17 22:39 Dose: 325 mg Amlodipine Besylate (Norvasc -) 5 mg PO DAILY [facility] Last Admin: 04/03/17 09:12 Dose: 5 mg Aspirin (Asa -) 81 mg PO DAILY [facility] Last Admin: 04/03/17 09:12 Dose: 81 mg Atorvastatin Calcium (Lipitor -) 5 mg PO HS [facility] Last Admin: 04/02/17 21:58 Dose: 5 mg Diphenhydramine HCl (Benadryl -) 25 mg PO HS PRN PRN Reason: INSOMNIA Last Admin: 04/02/17 21:58 Dose: 25 mg Gabapentin (Neurontin -) 300 mg PO HS [facility] Last Admin: 04/02/17 22:00 Dose: 300 mg Heparin Sodium (Porcine) (Heparin -) 5,000 unit SQ BID [facility] Last Admin: 04/03/17 09:13 Dose: 5,000 unit Losartan Potassium (Cozaar -) 50 mg PO DAILY [facility] Last Admin: 04/03/17 09:12 Dose: 50 mg Ranitidine HCl (Zantac -) 150 mg PO BID [facility] Last Admin: 04/03/17 09:12 Dose: 150 mg Sodium Chloride (Sodium Chloride Tablet -) 1 gm PO DAILY [facility] Last Admin: 04/03/17 09:12 Dose: 1 gm Sotalol HCl (Betapace -) 40 mg PO DAILY [facility] Last Admin: 04/03/17 09:13 Dose: 40 mg - Objective Vital Signs: Vital Signs Temperature 98.3 F 04/03/17 14:00 Pulse Rate 70 04/03/17 14:00 Respiratory Rate 18 04/03/17 09:11 Blood Pressure 117/65 04/03/17 14:00 O2 Sat by Pulse Oximetry (%) 96 04/03/17 09:00 Constitutional: Yes: No Distress, Calm Eyes: Yes: Conjunctiva Clear HENT: Yes: Atraumatic Neck: Yes: Supple Cardiovascular: Yes: Regular Rate and Rhythm Respiratory: Yes: CTA Bilaterally Gastrointestinal: Yes: Soft. No: Distention, Tenderness Genitourinary: No: CVA Tenderness - Left, CVA Tenderness - Right, Hematuria Musculoskeletal: No: Joint Stiffness, Joint Swelling Extremities: No: Cold, Cool Edema: No Peripheral Pulses WNL: Yes Neurological: Yes: WNL, Alert, Oriented ...Motor Strength: WNL Psychiatric: Yes: WNL, Alert, Oriented. No: Agitated Labs: CBC, BMP 04/01/17 07:00 04/01/17 07:00 INR, PTT INR 1.12 (0.82-1.09) 03/30/17 18:52 - ....Imaging Other: Report Reviewed Assessment/Plan Patient is an 86 year old female with significant medical hx of HLD, HTN, AFib ( on Xeralto/ Oxtalol), and COPD who is presenting to the ED with headache, generalized weakness, and progressive exertional dyspnea for one week. Also with one episode of epistaxis self discontinued her Xeralto. admitted for ENT and cardiology eval aortic stenosis - advised to f/u with cardiology and CT surgery to discuss pros and cons for surgery. fall pfx d/w pt do not get OOB alone, call for help if needs OOB; PT rehab and pain mngt eval noted, eval for SNF/PT bed alarm hold xarelto until cleared by ENT d/w pt and staff
--- NOTE | 2017-04-03 17:57 | CON.ENT ---
Consult Consult Specialty:: ENT Referred by:: Dr. Gan Reason for Consultation:: epistaxis - History of Present Illness Chief Complaint: hx of epistaxis History of Present Illness: 86 yo F admitted significant hx of aortic valve disease, has been on Xarelto Just prior to admission the patien'ts aide at home noted some blood on her pillowcase one morning, and thought it may have come from her mouth. Pt did not recall any active bleeding from her mouth or nose, and had no acute nasal or mouth problem immediatelly prior. no witnessed or reported nasal bleeding since admission. complains of intermittent bilateral ear pain known neck problems related to arthritis and cervical disc disease, physical medicine evaluation noted pt also has reconsidered surgical treatment of her aortic valve disease, and states she may be transferred for surgical treatment. pt has had intermittent right sided epistaxis had right maxillary discomfort summer 2015, resolved after outpatient treatment with allergy medications form Dr. Gan. - History Source History Provided By: Patient, Medical Record Limitations to Obtaining History: No Limitations - Past Medical History Cardio/Vascular: Yes: Aortic Stenosis, CAD, HTN, Hyperlipdemia Pulmonary: Yes: COPD Gastrointestinal: Yes: Cancer, Constipation Renal/: Yes: Renal Inusuff ...: No Psych: Yes: Anxiety, Depression Musculoskeletal: Yes: Chronic low back pain, Osteoarthritis - Past Surgical History Additional Surgical History: coronary angiogram; s/p LE pseudoaneurysm - Alcohol/Substance Use Hx Alcohol Use: No History of Substance Use: reports: None - Smoking History Smoking history: Never smoked Have you smoked in the past 12 months: No - Social History ADL: Independent History of Recent Travel: No Home Medications - Allergies Allergies/Adverse Reactions: Allergies Allergy/AdvReac Type Severity Reaction Status Date / Time No Known Allergies Allergy Verified 03/30/17 16:31 - Home Medications Home Medications: Ambulatory Orders Amlodipine Besylate [Norvasc -] 5 mg PO DAILY 12/03/15 Atorvastatin Ca [Lipitor] 5 mg PO HS 12/03/15 Ranitidine HCl [Zantac] 150 mg PO BID 12/03/15 Sotalol HCl [Sotalol] 40 mg PO DAILY 12/03/15 Acetaminophen [Tylenol .Regular Strength -] 325 mg PO Q6H PRN #0 tablet Aspirin [ASA -] 81 mg PO DAILY 03/30/17 Gabapentin [Neurontin -] 300 mg PO HS 03/30/17 Losartan/Hydrochlorothiazide [Losartan-Hctz 50-12.5 mg Tab] 1 each PO DAILY Rivaroxaban [Xarelto] 20 each PO HS 03/30/17 Physical Exam-ENT Vital Signs: Vital Signs Temperature 98.3 F 04/03/17 14:00 Pulse Rate 70 04/03/17 14:00 Respiratory Rate 18 04/03/17 09:11 Blood Pressure 117/65 04/03/17 14:00 O2 Sat by Pulse Oximetry (%) 96 04/03/17 09:00 Constitutional: Yes: No Distress, Calm Head: Yes: WNL Face: Yes: WNL Eyes: Yes: WNL Nose: Yes: Other (Nasal endoscopy: nasal septum intact, minimal deviation, nasal septal mucosa unremarkable: no bleeding site, no blood or crust, no telangiectasias. inferior turbinates WNL, mild erythema of middle turbinates, middle meati WNL, superior turbinates and meati not visualized, sphenoethmoid recess WNL, nasopharynx clear, no lesions, no obstruction of airway.) Nasal Passage: Yes: WNL Oral/Pharynx: Yes: Other (tonsils absent, no bleeding in oropharynx, no trismus , no mucosal lesions, tongue mobile) Outer Ear: Yes: WNL Ear Canal: Yes: WNL Tympanic Membrane: Yes: WNL Neck: Yes: WNL Imaging - Results Chest X-ray: Report Reviewed, Image Reviewed Cat Scan: Report Reviewed, Image Reviewed Problem List - Problems (1) Nasal bleeding Assessment/Plan: pt has prior hx of intermittent Right sided nasal bleeding, not active she had dry blood on her pillowcase at home prior to admission, did not recall any active bleeding but dry blood found on pillowcase and left face nasal endoscopy today shows no blood, no suspicious bleeding site Recommend: nasal saline spray advised ok to restart Xarelto from ENT perspective Code(s): R04.0 - EPISTAXIS (2) Ear pain Assessment/Plan: pt has intermittent ear pain ear exam is normal, no cerumen or evidence of external ear infection or middle ear infection both eardrums have normal appearance Suspect this is referred ear pain, possibly from her cervical spine disease advise continue treatment as per Physical Medicine Thank you for consultation, Rick Latham MD FACS Code(s): H92.09 - OTALGIA, UNSPECIFIED EAR Qualifiers: Laterality: bilateral Qualified Code(s): H92.03 - Otalgia, bilateral
[2017-04-03] MEDS: ATORVASTATIN CA 10 MG TABLET (FP) PO SCH (21:51)
[2017-04-03] MEDS: GABAPENTIN 300 MG CAPSULE (FP) PO SCH (21:52)
[2017-04-03] MEDS: diphenhydrAMINE HCL 25 MG CAPSULE (FP) PO PRN (21:53)
[2017-04-03] MEDS: SODIUM CHLORIDE NASAL SPRAY 44 ML BOTTLE NS SCH (21:53)
[2017-04-04] MEDS ORDERED: PT OWN MED DRAWER 7, Y5N ONE ×3 (01:06→21:36)
[2017-04-04 07:24] LABS: BASOPHIL 1.3 % (0-2.0); MCHC 33.7 g/dl (32.0-36.0); MEAN CELL VOLUME 89.2 fl (80-96); MEAN PLT VOLUME 8.2 fl (7.5-11.1); NEUTROPHILS 46.9 % (42.8-82.8); PLATELET COUNT 185 K/MM3 (134-434); RDW 14.2 % (11.6-15.6); WHITE BLOOD COUNT 5.9 K/mm3 (4.0-10.0)
[2017-04-04 08:33] LABS: CALCIUM 8.3 mg/dL (8.5-10.1); COCKROFT - GAULT 48.722; CREATININE 0.8 mg/dL (0.55-1.02)
[2017-04-04] MEDS: SODIUM CHLORIDE NASAL SPRAY 44 ML BOTTLE NS SCH ×2 (10:00→21:37)
[2017-04-04] MEDS: ASPIRIN 81 MG CHEWABLE TABLETS PO SCH (10:00)
[2017-04-04] MEDS: RIVAROXABAN 20 MG TABLET PO SCH (10:00)
[2017-04-04] MEDS: LOSARTAN POTASSIUM 50 MG TABLET (FP) PO SCH (10:00)
[2017-04-04] MEDS: SOTALOL HCL 80 MG TABLET (FP) PO SCH (10:00)
[2017-04-04] MEDS: RANITIDINE HCL 150 MG TABLET (FP) PO SCH ×2 (10:00→21:37)
[2017-04-04] MEDS: SODIUM CHLORIDE 1 GM TABLET PO SCH (10:00)
[2017-04-04] MEDS: amLODIPine BESYLATE 5 MG TABLET (FP) PO SCH (10:00)
--- NOTE | 2017-04-04 10:26 | PN ---
Progress Note, Physician Chief Complaint: in bed nad seen by ENT scope negative; dry mucosa, started on saline sprays, no ENT objections to restart blood thinners d/w dr Latham ENT - Current Medication List Current Medications: Active Medications Acetaminophen (Tylenol -) 325 mg PO Q6H PRN PRN Reason: PAIN LEVEL 6-10 Last Admin: 03/30/17 22:39 Dose: 325 mg Amlodipine Besylate (Norvasc -) 5 mg PO DAILY [facility] Last Admin: 04/04/17 10:00 Dose: 5 mg Aspirin (Asa -) 81 mg PO DAILY [facility] Last Admin: 04/04/17 10:00 Dose: 81 mg Atorvastatin Calcium (Lipitor -) 5 mg PO HS [facility] Last Admin: 04/03/17 21:51 Dose: 5 mg Diphenhydramine HCl (Benadryl -) 25 mg PO HS PRN PRN Reason: INSOMNIA Last Admin: 04/03/17 21:53 Dose: 25 mg Gabapentin (Neurontin -) 300 mg PO HS [facility] Last Admin: 04/03/17 21:52 Dose: 300 mg Losartan Potassium (Cozaar -) 50 mg PO DAILY [facility] Last Admin: 04/04/17 10:00 Dose: 50 mg Ranitidine HCl (Zantac -) 150 mg PO BID [facility] Last Admin: 04/04/17 10:00 Dose: 150 mg Rivaroxaban (Xarelto -) 20 mg PO DAILY [facility] Last Admin: 04/04/17 10:00 Dose: 20 mg Sodium Chloride (Sodium Chloride Tablet -) 1 gm PO DAILY [facility] Last Admin: 04/04/17 10:00 Dose: 1 gm Sodium Chloride ([address] [place] Nasal [place] -) 2 spray NS BID [facility] Last Admin: 04/04/17 10:00 Dose: 2 sprays Sotalol HCl (Betapace -) 40 mg PO DAILY [facility] Last Admin: 04/04/17 10:00 Dose: 40 mg - Objective Vital Signs: Vital Signs Temperature 97.9 F 04/04/17 09:53 Pulse Rate 77 04/04/17 09:53 Respiratory Rate 18 04/04/17 09:53 Blood Pressure 151/77 04/04/17 09:53 O2 Sat by Pulse Oximetry (%) 96 04/03/17 09:00 Constitutional: Yes: No Distress, Calm Eyes: Yes: Conjunctiva Clear HENT: Yes: Atraumatic Neck: Yes: Supple Cardiovascular: Yes: Regular Rate and Rhythm Respiratory: Yes: CTA Bilaterally Gastrointestinal: Yes: Soft. No: Distention, Tenderness Genitourinary: No: CVA Tenderness - Left, CVA Tenderness - Right Extremities: No: Cold, Cool Edema: No Integumentary: No: Rash, Venous Stasis Changes Neurological: Yes: WNL, Alert, Oriented ...Motor Strength: WNL Psychiatric: Yes: WNL, Alert, Oriented. No: Agitated, Suicidal Ideation Labs: CBC, BMP 04/04/17 06:15 04/04/17 06:15 INR, PTT INR 1.12 (0.82-1.09) 03/30/17 18:52 - ....Imaging Other: Report Reviewed Assessment/Plan Patient is an 86 year old female with significant medical hx of HLD, HTN, AFib ( on Xeralto/ Oxtalol), and COPD who is presenting to the ED with headache, generalized weakness, and progressive exertional dyspnea for one week. Also with one episode of epistaxis self discontinued her Xeralto. admitted for ENT and cardiology eval aortic stenosis - advised to f/u with cardiology and CT surgery to discuss pros and cons for surgery. Pt does not want to go to [place] (as rec. by dr Medrano) but said her niece recommended dr Garces at [facility], will see him outpt; also of note pt's family will go for a 2 weeks trip to [place] in April so the consensus is that Cris should have the valve surgery after they return so they could be around to help her. fall pfx d/w pt do not get OOB alone, call for help if needs OOB; PT rehab and pain mngt anna noted, eval for SNF/PT bed alarm restart xarelto, cleared by ENT d.w manager [employer] and pt's daughter and pt; they wish SNF placement for rehab d/w pt and staff
--- NOTE | 2017-04-04 17:10 | PN ---
Progress Note, Physician Chief Complaint: Pt walking slowly in hallway with help of walker, physical therapists; not markedly dyspneic, and able to hold a brief conversation. History of Present Illness: Patient is an 86 year old woman with significant medical hx of severe aortic stenosis, HLD, HTN, AFib (on Xeralto/ Oxtalol), diastolic CHF, anxiety/ depression (worsened by the of her son late last year), and COPD, who is presenting to the ED with headache, generalized weakness, and progressive exertional dyspnea for one week. Patient characterizes her weakness as feeling tired and as if her "muscles are heavy". She states that her headache worsens with movement of her head. The patient also endorses loss of appetite. Patient was noted to have blood on her pillow on awakening two days ago. She is unsure of whether it was from epistaxis or oral bleeding, so she decided to discontinue her Xeralto. The patient denies any fevers, chills, recent illnesses, recent travel, melena, hematemesis, cough, chest pain, vertigo, hempotysis, weakness, dizziness, lightheadedness, or syncope. PMD: Joy Gan MD Surgical Hx: Right BKA - Current Medication List Current Medications: Active Medications Acetaminophen (Tylenol -) 325 mg PO Q6H PRN PRN Reason: PAIN LEVEL 6-10 Last Admin: 03/30/17 22:39 Dose: 325 mg Amlodipine Besylate (Norvasc -) 5 mg PO DAILY [facility] Last Admin: 04/04/17 10:00 Dose: 5 mg Aspirin (Asa -) 81 mg PO DAILY [facility] Last Admin: 04/04/17 10:00 Dose: 81 mg Atorvastatin Calcium (Lipitor -) 5 mg PO HS [facility] Last Admin: 04/03/17 21:51 Dose: 5 mg Diphenhydramine HCl (Benadryl -) 25 mg PO HS PRN PRN Reason: INSOMNIA Last Admin: 04/03/17 21:53 Dose: 25 mg Gabapentin (Neurontin -) 300 mg PO HS [facility] Last Admin: 04/03/17 21:52 Dose: 300 mg Losartan Potassium (Cozaar -) 50 mg PO DAILY [facility] Last Admin: 04/04/17 10:00 Dose: 50 mg Ranitidine HCl (Zantac -) 150 mg PO BID [facility] Last Admin: 04/04/17 10:00 Dose: 150 mg Rivaroxaban (Xarelto -) 20 mg PO DAILY [facility] Last Admin: 04/04/17 10:00 Dose: 20 mg Sodium Chloride (Sodium Chloride Tablet -) 1 gm PO DAILY [facility] Last Admin: 04/04/17 10:00 Dose: 1 gm Sodium Chloride ([place] Nasal [place] -) 2 spray NS BID [facility] Last Admin: 04/04/17 10:00 Dose: 2 sprays Sotalol HCl (Betapace -) 40 mg PO DAILY [facility] Last Admin: 04/04/17 10:00 Dose: 40 mg - Objective Vital Signs: Vital Signs Temperature 97.7 F 04/04/17 14:00 Pulse Rate 85 04/04/17 14:00 Respiratory Rate 20 04/04/17 14:00 Blood Pressure 151/77 04/04/17 09:53 O2 Sat by Pulse Oximetry (%) 96 04/04/17 09:00 Constitutional: Yes: Calm Eyes: Yes: WNL HENT: Yes: WNL Neck: Yes: Supple Cardiovascular: Yes: Regular Rate and Rhythm Respiratory: Yes: Diminished Gastrointestinal: Yes: Soft ...Rectal Exam: Yes: Deferred Genitourinary: No: Anuria Musculoskeletal: Yes: Muscle Weakness Extremities: Yes: Cool Edema: No Peripheral Pulses WNL: Yes Integumentary: Yes: WNL Neurological: Yes: Alert, Oriented, Weakness Psychiatric: Yes: WNL Labs: CBC, BMP 04/04/17 06:15 04/04/17 06:15 INR, PTT INR 1.12 (0.82-1.09) 03/30/17 18:52 Problem List - Problems (1) Atrial fibrillation Assessment/Plan: On sotalol. Rivaroxaban restarted. Code(s): I48.91 - UNSPECIFIED ATRIAL FIBRILLATION (2) COPD (chronic obstructive pulmonary disease) Assessment/Plan: Interstitial deepthi disease. f/u with b operator Code(s): J44.9 - CHRONIC OBSTRUCTIVE PULMONARY DISEASE, UNSPECIFIED (3) HTN (hypertension) Assessment/Plan: On sotalol, amlodipine, and ARB. Code(s): I10 - ESSENTIAL (PRIMARY) HYPERTENSION (4) Hyponatremia Assessment/Plan: Was being given saline; Na now 132. Code(s): E87.1 - HYPO-OSMOLALITY AND HYPONATREMIA (5) Severe aortic stenosis Assessment/Plan: Long discussion was again had with pt and with her daughter, Joy. Pt is now willing to undergo evaluation for TAVR. They prefer to have the procedure done at [facility], and will have an outpatient consultation done there, with plans for the TAVR in early May (when family returns from vacation, and can be present to care for her post-procedure). Pt is aware that her interstitial lung disease is also a contributer to the shortness of breath; f/u with b operator. Code(s): I35.0 - NONRHEUMATIC AORTIC (VALVE) STENOSIS (6) Diastolic CHF Code(s): I50.30 - UNSPECIFIED DIASTOLIC (CONGESTIVE) HEART FAILURE (7) Depression Assessment/Plan: Psychologic workup (pt says she has lost the will to live since the of her son 08/2016). Her daughter beleves that her mother is ready to speak to and would benefit from a psychological consult (may be done as outpt). Code(s): F32.9 - MAJOR DEPRESSIVE DISORDER, SINGLE EPISODE, UNSPECIFIED
[2017-04-04] MEDS: GABAPENTIN 300 MG CAPSULE (FP) PO SCH (21:37)
[2017-04-04] MEDS: ATORVASTATIN CA 10 MG TABLET (FP) PO SCH (21:37)
[2017-04-04] MEDS: diphenhydrAMINE HCL 25 MG CAPSULE (FP) PO PRN (21:37)
[2017-04-05] MEDS ORDERED: TAMSULOSIN HCL 0.4 MG CAP.ER.24H (FP) PO SCH (08:30)
[2017-04-05] MEDS: amLODIPine BESYLATE 5 MG TABLET (FP) PO SCH (10:31)
[2017-04-05] MEDS: ASPIRIN 81 MG CHEWABLE TABLETS PO SCH (10:31)
[2017-04-05] MEDS: LOSARTAN POTASSIUM 50 MG TABLET (FP) PO SCH (10:31)
[2017-04-05] MEDS: RANITIDINE HCL 150 MG TABLET (FP) PO SCH (10:31)
[2017-04-05] MEDS: SOTALOL HCL 80 MG TABLET (FP) PO SCH (10:31)
[2017-04-05] MEDS: SODIUM CHLORIDE 1 GM TABLET PO SCH (10:32)
[2017-04-05] MEDS: SODIUM CHLORIDE NASAL SPRAY 44 ML BOTTLE NS SCH (10:32)
[2017-04-05] MEDS: RIVAROXABAN 20 MG TABLET PO SCH (10:32)
--- NOTE | 2017-04-05 11:37 | DS ---
Physical Examination Vital Signs: Vital Signs Temperature 97.5 F L 04/05/17 05:46 Pulse Rate 76 04/05/17 05:46 Respiratory Rate 20 04/05/17 05:46 Blood Pressure 130/70 04/05/17 05:46 O2 Sat by Pulse Oximetry (%) 96 04/04/17 21:00 Findings/Remarks: OOB to chair no nose bleeds; chest CT worsening IT fibrosis; O2 sat/RA 88% with exercise; will need home O2; pulm called; d/w pt and daughter that if her lung ds is worse the AVR might not help much with her SOB. Her insurance denied her SNF/PT I called [phone] [phone] for peer to peer review left message renal pelvic US c.w urinary retention started on flomax, called (can see outpt too) Constitutional: Yes: No Distress, Calm Eyes: Yes: Conjunctiva Clear HENT: Yes: Atraumatic Neck: Yes: Supple Cardiovascular: Yes: Regular Rate and Rhythm Respiratory: Yes: CTA Bilaterally Gastrointestinal: Yes: Soft. No: Distention, Tenderness Renal/: No: CVA Tenderness - Left, CVA Tenderness - Right Musculoskeletal: No: Joint Stiffness, Joint Swelling Extremities: No: Cold, Cool, Cyanosis Edema: No Integumentary: No: Rash, Venous Stasis Changes Neurological: Yes: WNL, Alert, Oriented ...Motor Strength: WNL Psychiatric: Yes: WNL, Alert, Oriented. No: Agitated Labs: CBC, BMP 04/04/17 06:15 04/04/17 06:15 Discharge Summary Reason For Visit: HYPONATREMIA Current Active Problems Depression (Acute) Diastolic CHF (Acute) Ear pain (Acute) Hyponatremia syndrome (Acute) Nasal bleeding (Acute) Procedures: Principal: epistaxis, SOB;. seen by ENT no significant bleeding; could restart blood thinners Other Procedures: cardiology eval for Ao Stenosis, d/w pt and daughter AVR - they would like to pursue it in [facility], if they decide to ever do it; will go outpt;. seen by pulm for IT lung ds; had O2 sat/RA 88% needs home O2 - script given Hospital Course: improved with above; DC home outpt f/u as advised Condition: Improved - Instructions Diet, Activity, Other Instructions: f/u PCP and labs in 1-2 weeks see ENT cardiology pulmonary and outpt falls PFX HOme O2 with exercise; do not smoke while O2 tank present Referrals: Joy Gan [Primary Care Provider] - Disposition: VNS/HOME HEALTH CARE - Home Medications Comprehensive Discharge Medication List: Ambulatory Orders Amlodipine Besylate [Norvasc -] 5 mg PO DAILY 12/03/15 Atorvastatin Ca [Lipitor] 5 mg PO HS 12/03/15 Ranitidine HCl [Zantac] 150 mg PO BID 12/03/15 Sotalol HCl [Sotalol] 40 mg PO DAILY 12/03/15 Acetaminophen [Tylenol .Regular Strength -] 325 mg PO Q6H PRN #0 tablet Aspirin [ASA -] 81 mg PO DAILY 03/30/17 Gabapentin [Neurontin -] 300 mg PO HS 03/30/17 Losartan/Hydrochlorothiazide [Losartan-Hctz 50-12.5 mg Tab] 1 each PO DAILY Rivaroxaban [Xarelto] 20 each PO HS 03/30/17
[2017-04-05 11:48] VITALS: BP 132/72
--- NOTE | 2017-04-05 12:19 | PN ---
Progress Note, Physician - Current Medication List Current Medications: Active Medications Acetaminophen (Tylenol -) 325 mg PO Q6H PRN PRN Reason: PAIN LEVEL 6-10 Last Admin: 03/30/17 22:39 Dose: 325 mg Amlodipine Besylate (Norvasc -) 5 mg PO DAILY [facility] Last Admin: 04/05/17 10:31 Dose: 5 mg Aspirin (Asa -) 81 mg PO DAILY [facility] Last Admin: 04/05/17 10:31 Dose: 81 mg Atorvastatin Calcium (Lipitor -) 5 mg PO HS [facility] Last Admin: 04/04/17 21:37 Dose: 5 mg Diphenhydramine HCl (Benadryl -) 25 mg PO HS PRN PRN Reason: INSOMNIA Last Admin: 04/04/17 21:37 Dose: 25 mg Gabapentin (Neurontin -) 300 mg PO HS [facility] Last Admin: 04/04/17 21:37 Dose: 300 mg Losartan Potassium (Cozaar -) 50 mg PO DAILY [facility] Last Admin: 04/05/17 10:31 Dose: 50 mg Ranitidine HCl (Zantac -) 150 mg PO BID [facility] Last Admin: 04/05/17 10:31 Dose: 150 mg Rivaroxaban (Xarelto -) 20 mg PO DAILY [facility] Last Admin: 04/05/17 10:32 Dose: 20 mg Sodium Chloride (Sodium Chloride Tablet -) 1 gm PO DAILY [facility] Last Admin: 04/05/17 10:32 Dose: 1 gm Sodium Chloride ([place] Nasal [place] -) 2 spray NS BID [facility] Last Admin: 04/05/17 10:32 Dose: 2 sprays Sotalol HCl (Betapace -) 40 mg PO DAILY [facility] Last Admin: 04/05/17 10:31 Dose: 40 mg Tamsulosin HCl (Flomax -) 0.4 mg PO DAILY@0830 [facility] Last Admin: 04/05/17 08:42 Dose: 0.4 mg - Objective Vital Signs: Vital Signs Temperature 98 F 04/05/17 09:00 Pulse Rate 93 H 04/05/17 12:04 Respiratory Rate 20 04/05/17 09:00 Blood Pressure 132/72 04/05/17 09:00 O2 Sat by Pulse Oximetry (%) 95 04/05/17 12:04 Eyes: Yes: WNL, Conjunctiva Clear, EOM Intact HENT: Yes: WNL, Atraumatic, Normocephalic Neck: Yes: WNL, Supple, Trachea Midline Cardiovascular: Yes: Murmur Respiratory: Yes: WNL, Regular, CTA Bilaterally Gastrointestinal: Yes: WNL, Normal Bowel Sounds Genitourinary: Yes: WNL Musculoskeletal: Yes: WNL Extremities: Yes: WNL Edema: No Integumentary: Yes: WNL Neurological: Yes: WNL, Alert, Oriented ...Motor Strength: WNL Psychiatric: Yes: WNL Labs: CBC, BMP 04/04/17 06:15 04/04/17 06:15 INR, PTT INR 1.12 (0.82-1.09) 03/30/17 18:52 Assessment/Plan Problems (1) Atrial fibrillation Assessment/Plan: On sotalol. Rivaroxaban restarted. Code(s): I48.91 - UNSPECIFIED ATRIAL FIBRILLATION (2) COPD (chronic obstructive pulmonary disease) Assessment/Plan: Interstitial deepthi disease. f/u with catalog specialist Code(s): J44.9 - CHRONIC OBSTRUCTIVE PULMONARY DISEASE, UNSPECIFIED (3) HTN (hypertension) Assessment/Plan: On sotalol, amlodipine, and ARB. Code(s): I10 - ESSENTIAL (PRIMARY) HYPERTENSION (4) Hyponatremia Assessment/Plan: Was being given saline; Na now 132. Code(s): E87.1 - HYPO-OSMOLALITY AND HYPONATREMIA (5) Severe aortic stenosis Assessment/Plan: Pt is now willing to undergo evaluation for TAVR. They prefer to have the procedure done at [facility], and will have an outpatient consultation done there, with plans for the TAVR in early May (when family returns from vacation, and can be present to care for her post-procedure). Pt is aware that her interstitial lung disease is also a contributer to the shortness of breath; f/u with catalog specialist. Code(s): I35.0 - NONRHEUMATIC AORTIC (VALVE) STENOSIS (6) Diastolic CHF Code(s): I50.30 - UNSPECIFIED DIASTOLIC (CONGESTIVE) HEART FAILURE (7) Depression Assessment/Plan: Psychologic workup (pt says she has lost the will to live since the of her son 08/2016). Her daughter beleves that her mother is ready to speak to and would benefit from a psychological consult (may be done as outpt). Code(s): F32.9 - MAJOR DEPRESSIVE DISORDER, SINGLE EPISODE, UNSPECIFIED
[2017-04-05 14:07] VITALS: PULSE 73; TEMP 97.4
--- NOTE | 2017-04-05 14:31 | CON.PULM ---
Consult Consult Specialty:: PULMONARY Referred by:: LUCILA Reason for Consultation:: SOB/ILD - History of Present Illness Chief Complaint: PADRON MINIMAL EXERTION History of Present Illness: Patient is an 86 year old woman with significant medical hx of severe aortic stenosis, HLD, HTN, AFib,ILD (on Xeralto/ Oxtalol), diastolic CHF, anxiety/ depression (worsened by the of her son late last year), and COPD, who is presenting to the ED with headache, generalized weakness, and progressive exertional dyspnea for one week. Patient characterizes her weakness as feeling tired and as if her "muscles are heavy". She states that her headache worsens with movement of her head. The patient also endorses loss of appetite. Patient was noted to have blood on her pillow on awakening two days ago. She is unsure of whether it was from epistaxis or oral bleeding, so she decided to discontinue her Xeralto. The patient denies any fevers, chills, recent illnesses , recent travel, melena, hematemesis, cough, chest pain, vertigo, hempotysis, weakness, dizziness, lightheadedness, or syncope. - History Source History Provided By: Patient, Medical Record Limitations to Obtaining History: Clinical Condition - Past Medical History IRB COMPLIANCE COORDINATOR: No: Alzheimer's Cardio/Vascular: Yes: Aortic Stenosis, CAD, HTN, Hyperlipdemia Pulmonary: Yes: COPD Gastrointestinal: Yes: Cancer, Constipation Renal/: Yes: Renal Inusuff ...: No Psych: Yes: Anxiety, Depression Musculoskeletal: Yes: Chronic low back pain, Osteoarthritis - Past Surgical History Additional Surgical History: coronary angiogram; s/p LE pseudoaneurysm - Alcohol/Substance Use Hx Alcohol Use: No History of Substance Use: reports: None - Smoking History Smoking history: Never smoked Have you smoked in the past 12 months: No - Social History ADL: Independent Place of : Other ([place]) History of Recent Travel: No Home Medications - Allergies Allergies/Adverse Reactions: Allergies Allergy/AdvReac Type Severity Reaction Status Date / Time No Known Allergies Allergy Verified 03/30/17 16:31 - Home Medications Home Medications: Ambulatory Orders Amlodipine Besylate [Norvasc -] 5 mg PO DAILY 12/03/15 Atorvastatin Ca [Lipitor] 5 mg PO HS 12/03/15 Ranitidine HCl [Zantac] 150 mg PO BID 12/03/15 Acetaminophen [Tylenol .Regular Strength -] 325 mg PO Q6H PRN #0 tablet Aspirin [ASA -] 81 mg PO DAILY 03/30/17 Gabapentin [Neurontin -] 300 mg PO HS 03/30/17 Rivaroxaban [Xarelto] 20 each PO HS 03/30/17 Escitalopram Oxalate [Lexapro -] 10 mg PO DAILY #90 tablet 04/05/17 Losartan Potassium [Cozaar -] 50 mg PO DAILY #90 tablet 04/05/17 Metoprolol Succinate [Toprol Xl -] 50 mg PO DAILY #90 tablet 04/05/17 Sodium Chloride Nasal [place] [[place] Nasal [place] -] 2 spray NS BID #1 spray 04/05/17 Tamsulosin HCl [Flomax -] 0.4 mg PO DAILY@0830 #90 cap 04/05/17 Family Disease History - Family Disease History Family History: Unremarkable Review of Systems - Review of Systems Constitutional: denies: Fever Eyes: denies: Blurred Vision HENT: denies: Difficult Swallowing Neck: denies: Decreased ROM Cardiovascular: denies: Chest Pain Respiratory: reports: Cough, SOB on Exertion Gastrointestinal: denies: Abdominal Pain Genitourinary: reports: No Symptoms Breasts: reports: No Symptoms Reported Musculoskeletal: reports: No Symptoms Integumentary: reports: No Symptoms Physical Exam Vital Sings: Vital Signs Temperature 97.4 F L 04/05/17 14:00 Pulse Rate 73 04/05/17 14:00 Respiratory Rate 18 04/05/17 14:00 Blood Pressure 132/72 04/05/17 09:00 O2 Sat by Pulse Oximetry (%) 95 04/05/17 12:04 Constitutional: Yes: Calm Eyes: Yes: EOM Intact HENT: Yes: Normocephalic Neck: Yes: Trachea Midline Cardiovascular: Yes: Pulse Irregular, S1, S2 Respiratory: Yes: Diminished (BILATERALLY) Gastrointestinal: Yes: Soft Edema: No Labs: CBC, BMP 04/04/17 06:15 04/04/17 06:15 Imaging - Results Chest X-ray: Image Reviewed Cat Scan: Image Reviewed EKG: Image Reviewed Problem List - Problems (1) Atrial fibrillation Code(s): I48.91 - UNSPECIFIED ATRIAL FIBRILLATION (2) COPD (chronic obstructive pulmonary disease) Code(s): J44.9 - CHRONIC OBSTRUCTIVE PULMONARY DISEASE, UNSPECIFIED (3) ILD (interstitial lung disease) Code(s): J84.9 - INTERSTITIAL PULMONARY DISEASE, UNSPECIFIED (4) Aortic stenosis Code(s): I35.0 - NONRHEUMATIC AORTIC (VALVE) STENOSIS Assessment/Plan MODERATELY SEVERE ILD IS CONTRIBUTING TO PADRON PATIENT DESATURATES TO 88% WHEN AMBULATING WILL REQUIRE HOME O2 SEVERE I BELIEVE THAT EVALUATION FOR TAVR SHOULD BE DONE REPAIR OF AORTIC VALVE MAY ALLEVIATE SOME OF HER UNDERLYING SYMPTOMATOLOGY. THANK YOU, Arnold KNAPP MD
== END 2017-04-05 14:22 | disposition home health service (06) | DRG 641 ==
LOC: JER 15:47 → JERBED 21:33 → UNDOADMIN 23:06 → JERBED 23:06 → J6S 03-31 00:12 → JERBED 03-31 00:12
PROVIDERS: ADMIT Internal Medicine; ATTEND Internal Medicine
DX: E87.1 Hypo-osmolality and hyponatremia (principal); I50.32 Chronic diastolic (congestive) heart failure; F32.9 Major depressive disorder, single episode, unspecified; R04.0 Epistaxis; I35.0 Nonrheumatic aortic (valve) stenosis; I48.91 Unspecified atrial fibrillation; J44.9 Chronic obstructive pulmonary disease, unspecified; I11.0 Hypertensive heart disease with heart failure; H92.03 Otalgia, bilateral; E78.5 Hyperlipidemia, unspecified
CPT/HCPCS: 36415; 70450-TC; 71010-TC; 71250-TC; 76775-TC; 76856-TC; 80048; 80053; 81003; 81015; 82550; 84443; 84484; 85025; 85610; 93005; 93010; 93306-TC; 94761; 97116-GP; 97161-GP; 99285-25; J1644

== ENCOUNTER 2017-04-19 13:03 | Inpatient (IN) | payer BC, OTHER ==
--- NOTE | 2017-04-19 13:12 | PDOC ---
History of Present Illness - General Chief Complaint: Shortness of Breath Stated Complaint: SOB Time Seen by Provider: 04/19/17 13:08 History Source: Patient Exam Limitations: No Limitations - History of Present Illness Initial Comments: 04/19/17 18:02 The patient is a 86 year old female, BIBA from Senior housing (living alone) with a significant past medical history of HLD, HTN, Afib (on xarelto/oxtalol), and COPD who presents to the emergency department with difficulty breathing and generalized weakness occurring today.. She notes having SOB that is often made worse with any activity. She also has chief complaints of weakness, chills, and a productive cough bring up black phlegm. The patient also notes having Diarrhea. MS reports the patient had an 02 sat of 78 on room air, with left lower lobe crackles, that improved with NRB and was put on CPAP when EMS arrived scene. The patient was recently admitted here for hyponatremia about 2 weeks ago and was discharged with 2 liters of oxygen NC. Pt states the smallest amount of effort will make her very weak. and her daughter mentions her CANVAS SHRINKER states she has been ambulating much less due to her weakness. She denies recent fevers, headache or dizziness. She denies recent nausea, vomit, or constipation. She denies recent dysuria, frequency, urgency or hematuria. She denies recent chest pain. Allergies: NKA Past surgical history: Right BKA Social history: Nonsmoker. Denies EtOH use and recreational drug use. Primary Care Physician: Joy Montemayor Past History - Past Medical History Allergies/Adverse Reactions: Allergies Allergy/AdvReac Type Severity Reaction Status Date / Time No Known Allergies Allergy Verified 04/19/17 13:32 Home Medications: Ambulatory Orders Amlodipine Besylate [Norvasc -] 5 mg PO DAILY 04/19/17 Atorvastatin Ca [Lipitor] 20 mg PO HS 04/19/17 Candesartan/Hydrochlorothiazid [Atacand Hct 16-12.5 mg -] 1 combo PO BID Omeprazole 20 mg PO DAILY 04/19/17 Sotalol HCl [Betapace] 40 mg PO BID 04/19/17 Warfarin Na [Coumadin] 4 mg PO DAILY 04/19/17 Zolpidem Tartrate [Ambien] 5 mg PO HS 04/19/17 Anemia: No Asthma: No Cancer: No Cardiac Disorders: Yes (afib) CVA: No COPD: Yes CHF: No Dementia: No Diabetes: No GI Disorders: (IBS) Disorders: No HTN: Yes Hypercholesterolemia: No Liver Disease: No Seizures: No Thyroid Disease: No - Surgical History Abdominal Surgery: No Appendectomy: Yes Cardiac Surgery: No Cholecystectomy: No GI Surgery: Yes (cystocel, rectocele, enterocele, hemorrhoids) Lung Surgery: No Neurologic Surgery: No Orthopedic Surgery: No - Immunization History Immunization Up to Date: Yes - Psycho/Social/Smoking Cessation Hx Anxiety: No Suicidal Ideation: No Smoking History: Never smoked Have you smoked in the past 12 months: No Hx Alcohol Use: No Drug/Substance Use Hx: No Substance Use Type: None Review of Systems - Review of Systems Able to Perform ROS?: Yes Comments:: 04/19/17 18:02 CONSTITUTIONAL: +chills and weakness. No reported: Fever, Diaphoresis, Malaise, Loss of Appetite HEENT: No reported: Rhinorrhea, Nasal Congestion, Throat Pain, Throat Swelling, Difficulty Swallowing, Mouth Swelling, Ear Pain, Eye Pain, Visual Changes CARDIOVASCULAR: No reported: Chest Pain, Syncope, Palpitations, Irregular Heart Rate, Lightheadedness, Peripheral Edema RESPIRATORY: +cough and SOB. GASTROINTESTINAL: +Diarrhea. No reported: Abdominal pain, Abdominal Distension, Nausea, Vomiting, Constipation, Melena, Hematochezia GENITOURINARY: No reported: Dysuria, Frequency, Urgency, Hesitancy, Flank Pain, Genital Pain MUSCULOSKELETAL: No reported: Myalgia, Arthralgia, Joint Swelling, Back pain, Neck Pain SKIN: No reported: Rash, Itching, Pallor HEMATOLOGIC/IMMUNOLOGIC: No reported: Easy Bleeding, Easy Bruising, Lymphadenopathy, Frequent infections ENDOCRINE: No reported: Unexplained Weight Gain, Unexplained Weight Loss, Heat Intolerance , Cold Intolerance NEUROLOGIC: No reported: Headache, Focal Weakness, Paresthesias, Vertigo, Lightheadedness, Unsteady Gait, Seizure, Mental Status Changes, Incontinence PSYCHIATRIC: No reported: Anxiety, Depression *Physical Exam - Physical Exam Comments: 04/19/17 18:03 GENERAL: The patient is awake, alert, HEAD: Normocephalic, atraumatic. EYES: extraocular movements intact, sclera anicteric, conjunctiva clear. ENT: Normal voice, Moist mucous membranes. NECK: Normal range of motion, supple LUNGS: rales at bases, slightly more on right, mild tachypnea and respiratory distresss, on bpap HEART: Regular rate and rhythm, normal S1 and S2 without murmur, rub or gallop. ABDOMEN: Soft, nontender, normoactive bowel sounds. No guarding, no rebound. . No CVA tenderness EXTREMITIES: Normal range of motion, no edema. No clubbing or cyanosis. No cords, erythema, or tenderness. NEUROLOGICAL: No facial assymetry, Normal speech, PSYCH: Normal mood, normal affect. SKIN: Warm, Dry, normal turgor, Heart Score/ECG Review - ECG Impressions Comment:: 04/19/17 15:37 Twelve-lead EKG was performed and reviewed by me. Irregular irregular rate of [address]-T wave changes Atrial fibrillation ED Treatment Course - LABORATORY CBC & Chemistry Diagram: 04/19/17 14:25 04/19/17 14:25 - RADIOLOGY Radiology Studies Ordered: Category Date Time Status CHEST X-RAY PORTABLE* [RAD] Stat Radiology 04/19/17 13:10 Ordered Medical Decision Making - Medical Decision Making 04/19/17 13:45 86y F hx of afib, copd, copd presents with increasing weakness and cough, noted to be hypoxic to 78% on RA no reported fever, cp, abd pain. exam noted for rales b/l with more on L bsae +recent hospitalization consider possible pna, anemia, metabolic dernagement, chf will ck labs, cxr, will notify dr. montemayor for disposition A portion of this note was documented by scribe services under my direction. I have reviewed the details of the note, within reason, and agree with the documentation with the following case summary and management plan written by me 04/19/17 15:52 pts labs reviewed pts cxr noted for congestion, but apperas worse in R than left --?> pna vs chf no leukocyotsis noted bnp elevated to 5k, however pt had echo last year showing EF of 70% will give abx for possible pna will give some lasxi will discuss with kirk montemayor regarding admission for further mangaement 04/19/17 16:15 pt also noted to have .. possible ocngestio nfor worsening AF will admit for furhter management case dw dr. montemayor agree with management will notify dr. Marcela elliott for tele 04/19/17 16:[address] redd agree with management and admission for further evaluation Case discussed in detail with admitting physician including history, physical exam and ancillary studies. Admitting physician has assumed care for the patient, will follow all pending diagnostics and will complete the evaluation and treatment. *DC/Admit/Observation/Transfer Diagnosis at time of Disposition: Hyponatremia, Hypoxia Aortic stenosis Qualifiers: Cardiac valve disease etiology: etiology unspecified Qualified Code(s): I35.0 - Nonrheumatic aortic (valve) stenosis Pneumonia Qualifiers: Pneumonia type: due to unspecified organism Laterality: right Lung location: lower lobe of lung Qualified Code(s): J18.1 - Lobar pneumonia, unspecified organism - Discharge Dispostion Condition at time of disposition: Stable Admit: Yes - Referrals
[2017-04-19 13:39] VITALS: BMI 26.4
[2017-04-19] MEDS ORDERED: AZITHROMYCIN IVPB 500 MG in DEXTROSE 5%-WATER - 250 ML IVPB ONE (14:27)
[2017-04-19] MEDS ORDERED: VANCOMYCIN 1,000 MG in DEXTROSE 5%-WATER - 250 ML IVPB ONE (14:27)
[2017-04-19] MEDS ORDERED: CEFEPIME HCL 2 GM VIAL (RESTRICTED TO ID) IVPB ONE (14:27)
[2017-04-19 14:40] LABS: BASOPHIL 0.7 % (0-2.0); EOSINOPHIL 0.2 % (0-4.5); MCH 29.1 pg (25.7-33.7); MEAN CELL VOLUME 88.2 fl (80-96); MEAN PLT VOLUME 8.6 fl (7.5-11.1); NEUTROPHILS 79.6 % (42.8-82.8); PLATELET COUNT 262 K/MM3 (134-434); RDW 14.7 % (11.6-15.6); WHITE BLOOD COUNT 10.7 K/mm3 (4.0-10.0)
[2017-04-19 14:52] LABS: INR 1.55 (0.82-1.09); PROTHROMBIN TIME (PATIENT) 17.2 SEC (9.98-11.88)
[2017-04-19 15:26] LABS: URINE APPEARANCE CLEAR; URINE BILIRUBIN NEGATIVE (NEGATIVE); URINE COLOR YELLOW; URINE GLUCOSE (UA) 1+ (NEGATIVE); URINE KETONE TRACE (NEGATIVE); URINE LEUK ESTERASE NEGATIVE (NEGATIVE); URINE NITRITE NEGATIVE (NEGATIVE); URINE UROBILINOGEN 2.0 E.U/dl E.U./dl (0.2-1.0)
[2017-04-19 15:27] LABS: ALBUMIN 3.2 g/dl (3.4-5.0); ANION GAP 11 (8-16); BILIRUBIN,TOTAL 0.7 mg/dL (0.2-1.0); CALCIUM 8.8 mg/dL (8.5-10.1); CO2 27 mmol/L (21-32); COCKROFT - GAULT 55.6835; CREATININE 0.7 mg/dL (0.55-1.02); GLUCOSE,RANDOM 132 mg/dL (74-106); SGOT/AST 30 U/L (15-37); SGPT/ALT 17 U/L (12-78); TOT PROT 7.7 g/dl (6.4-8.2)
[2017-04-19 15:30] LABS: ALK PHOS 120 U/L (45-117); TROPONIN I < 0.02 ng/ml (0.00-0.05)
[2017-04-19 15:42] LABS: URINE BLOOD 2+ (NEGATIVE); URINE PROTEIN 2+ (NEGATIVE)
[2017-04-19 15:43] LABS: URINE MUCUS RARE; URINE RBC 47 /hpf (0-3); URINE WBC 11 /hpf (3-5)
[2017-04-19] MEDS ORDERED: FUROSEMIDE 40 MG/4 ML INJECTABLE VIAL IVPUSH ONE (15:52)
[2017-04-19] MEDS ORDERED: AZITHROMYCIN IVPB 250 ML IVPB ONE (16:00)
[2017-04-19] MEDS ORDERED: VANCOMYCIN 1 GRAM (PRE-DOCKED) 250 ML IVPB ONE (16:00)
[2017-04-19] MEDS ORDERED: CEFEPIME 100 ML IVPB ONE (16:00)
[2017-04-19] MEDS ORDERED: FUROSEMIDE 40 MG/4 ML INJECTABLE VIAL ONE (16:00)
--- NOTE | 2017-04-19 17:50 | CON.CARD ---
Consult - History of Present Illness History of Present Illness: Patient is an 86 year old woman with significant medical hx of severe aortic stenosis, HLD, HTN, AFib (on Xeralto/ Oxtalol), diastolic CHF, anxiety/ depression (worsened by the of her son late last year), and COPD, who is presenting to the ED with sob chf exacorbation. During admission last month agreed to undergo evaluation for TAVR. Family prefer to have the procedure done at [facility], and will have an outpatient consultation done there, with plans for the TAVR in early May (when family returns from vacation, and can be present to care for her post-procedure) . - History Source History Provided By: Patient, Family Member, Medical Record - Past Medical History Cardio/Vascular: Yes: Aortic Stenosis, CAD, HTN, Hyperlipdemia Pulmonary: Yes: COPD Gastrointestinal: Yes: Cancer, Constipation Renal/: Yes: Renal Inusuff Psych: Yes: Anxiety, Depression Musculoskeletal: Yes: Chronic low back pain, Osteoarthritis - Alcohol/Substance Use Hx Alcohol Use: No History of Substance Use: reports: None - Smoking History Smoking history: Never smoked Have you smoked in the past 12 months: No - Social History ADL: Independent History of Recent Travel: No Home Medications - Allergies Allergies/Adverse Reactions: Allergies Allergy/AdvReac Type Severity Reaction Status Date / Time No Known Allergies Allergy Verified 04/19/17 13:32 - Home Medications Home Medications: Ambulatory Orders Amlodipine Besylate [Norvasc -] 5 mg PO DAILY 04/19/17 Atorvastatin Ca [Lipitor] 20 mg PO HS 04/19/17 Candesartan/Hydrochlorothiazid [Atacand Hct 16-12.5 mg -] 1 combo PO BID Omeprazole 20 mg PO DAILY 04/19/17 Sotalol HCl [Betapace] 40 mg PO BID 04/19/17 Warfarin Na [Coumadin] 4 mg PO DAILY 04/19/17 Zolpidem Tartrate [Ambien] 5 mg PO HS 04/19/17 Review of Systems - Review of Systems Constitutional: reports: No Symptoms Eyes: reports: No Symptoms HENT: reports: No Symptoms Neck: reports: No Symptoms Cardiovascular: reports: Edema, Shortness of Breath Gastrointestinal: reports: No Symptoms Genitourinary: reports: No Symptoms Breasts: reports: No Symptoms Reported Musculoskeletal: reports: No Symptoms Integumentary: reports: No Symptoms Neurological: reports: No Symptoms Endocrine: reports: No Symptoms Hematology/Lymphatic: reports: No Symptoms Psychiatric: reports: No Symptoms Vital Signs: Vital Signs Temperature 98.8 F 04/19/17 13:05 Pulse Rate 72 04/19/17 13:05 Respiratory Rate 26 H 04/19/17 13:05 Blood Pressure 128/73 04/19/17 13:05 O2 Sat by Pulse Oximetry (%) 98 04/19/17 14:19 Constitutional: Yes: Well Nourished, No Distress, Calm Eyes: Yes: WNL, Conjunctiva Clear, EOM Intact HENT: Yes: WNL, Atraumatic, Normocephalic Neck: Yes: WNL, Supple, Trachea Midline Respiratory: Yes: Diminished Gastrointestinal: Yes: WNL, Normal Bowel Sounds Renal/: Yes: WNL Cardiovascular: Yes: Pulse Irregular Heart Sounds: Yes: S1, S2 Murmur: Yes: Systolic Murmur, Grade 3 Musculoskeletal: Yes: WNL Extremities: Yes: WNL Integumentary: Yes: WNL Neurological: Yes: WNL, Alert, Oriented ...Motor Strength: WNL Psychiatric: Yes: WNL, Alert, Oriented - Other Data Labs, Other Data: INR, PTT INR 1.55 (0.82-1.09) H D 04/19/17 14:25 Laboratory Tests 04/19/17 04/19/17 04/19/17 14:25 14:25 14:25 WBC 10.7 H D RBC 3.75 Hgb 10.9 Hct 33.1 MCV 88.2 MCHC 33.0 RDW 14.7 Plt Count 262 D MPV 8.6 Neutrophils % 79.6 D Lymphocytes % 7.0 L D Monocytes % 12.5 H Eosinophils % 0.2 D Basophils % 0.7 INR 1.55 H D Sodium 128 L Potassium 4.3 Chloride 90 L Carbon Dioxide 27 Anion Gap 11 BUN 15 D Creatinine 0.7 Creat Clearance w eGFR > 60 Random Glucose 132 H D Lactic Acid Calcium 8.8 Total Bilirubin 0.7 D AST 30 D ALT 17 Alkaline Phosphatase 120 H Creatine Kinase 58 Troponin I < 0.02 B-Natriuretic Peptide 5019.03 H Total Protein 7.7 Albumin 3.2 L Urine Color Urine Appearance Urine pH Urine Protein Urine Glucose (UA) Urine Ketones Urine Blood Urine Nitrite Urine Bilirubin Urine Urobilinogen Ur Leukocyte Esterase Urine RBC Urine WBC Ur Epithelial Cells Urine Mucus 04/19/17 04/19/17 14:25 15:14 WBC RBC Hgb Hct MCV MCHC RDW Plt Count MPV Neutrophils % Lymphocytes % Monocytes % Eosinophils % Basophils % INR Sodium Potassium Chloride Carbon Dioxide Anion Gap BUN Creatinine Creat Clearance w eGFR Random Glucose Lactic Acid 3.0 H* Calcium Total Bilirubin AST ALT Alkaline Phosphatase Creatine Kinase Troponin I B-Natriuretic Peptide Total Protein Albumin Urine Color Yellow Urine Appearance Clear Urine pH 5.0 D Urine Protein 2+ H Urine Glucose (UA) 1+ H Urine Ketones Trace H Urine Blood 2+ H Urine Nitrite Negative Urine Bilirubin Negative Urine Urobilinogen 2.0 e.u/dl H Ur Leukocyte Esterase Negative Urine RBC 47 Urine WBC 11 Ur Epithelial Cells Few Urine Mucus Rare Imaging - Results Chest X-ray: Image Reviewed (chf) EKG: Image Reviewed (af rep abn) Problem List - Problems (1) Aortic stenosis Code(s): I35.0 - NONRHEUMATIC AORTIC (VALVE) STENOSIS Qualifiers: Cardiac valve disease etiology: etiology unspecified Qualified Code(s) : I35.0 - Nonrheumatic aortic (valve) stenosis (2) Hyponatremia Code(s): E87.1 - HYPO-OSMOLALITY AND HYPONATREMIA (3) Hypoxia Code(s): R09.02 - HYPOXEMIA (4) Pneumonia Code(s): J18.9 - PNEUMONIA, UNSPECIFIED ORGANISM Qualifiers: Pneumonia type: due to unspecified organism Laterality: right Lung location: lower lobe of lung Qualified Code(s): J18.1 - Lobar pneumonia, unspecified organism (5) Abdominal distension (gaseous) Code(s): R14.0 - ABDOMINAL DISTENSION (GASEOUS) (6) Abdominal pain Code(s): R10.9 - UNSPECIFIED ABDOMINAL PAIN (7) Atrial fibrillation Code(s): I48.91 - UNSPECIFIED ATRIAL FIBRILLATION (8) Back pain Code(s): M54.9 - DORSALGIA, UNSPECIFIED (9) COPD (chronic obstructive pulmonary disease) Code(s): J44.9 - CHRONIC OBSTRUCTIVE PULMONARY DISEASE, UNSPECIFIED (10) Chest pain Code(s): R07.9 - CHEST PAIN, UNSPECIFIED (11) Constipation Code(s): K59.00 - CONSTIPATION, UNSPECIFIED (12) Depression Code(s): F32.9 - MAJOR DEPRESSIVE DISORDER, SINGLE EPISODE, UNSPECIFIED (13) Diastolic CHF Code(s): I50.30 - UNSPECIFIED DIASTOLIC (CONGESTIVE) HEART FAILURE (14) Ear pain Code(s): H92.09 - OTALGIA, UNSPECIFIED EAR Qualifiers: Laterality: bilateral Qualified Code(s): H92.03 - Otalgia, bilateral (15) Flank pain Code(s): R10.9 - UNSPECIFIED ABDOMINAL PAIN (16) HTN (hypertension) Code(s): I10 - ESSENTIAL (PRIMARY) HYPERTENSION (17) HTN, goal below 130/80 Code(s): I10 - ESSENTIAL (PRIMARY) HYPERTENSION (18) Hyponatremia syndrome Code(s): E87.1 - HYPO-OSMOLALITY AND HYPONATREMIA (19) ILD (interstitial lung disease) Code(s): J84.9 - INTERSTITIAL PULMONARY DISEASE, UNSPECIFIED (20) Impaired gait Code(s): R26.9 - UNSPECIFIED ABNORMALITIES OF GAIT AND MOBILITY (21) Intractable back pain Code(s): M54.9 - DORSALGIA, UNSPECIFIED (22) Liver cirrhosis Code(s): K74.60 - UNSPECIFIED CIRRHOSIS OF LIVER (23) Nasal bleeding Code(s): R04.0 - EPISTAXIS (24) Severe aortic stenosis Code(s): I35.0 - NONRHEUMATIC AORTIC (VALVE) STENOSIS Assessment/Plan chf most likely due to as AF HYPONATREMIA LACTIC ACIDOSIS r/o sepsis coral telemetry or ICU IV lasix cont outp meds and AC abx will need TAVR
[2017-04-19] MEDS: ATORVASTATIN CA 20 MG TABLET (FP) PO SCH (21:33)
[2017-04-20 07:26] LABS: BASOPHIL 0.4 % (0-2.0); EOSINOPHIL 1.1 % (0-4.5); MCH 29.5 pg (25.7-33.7); MCHC 33.9 g/dl (32.0-36.0); MEAN CELL VOLUME 86.8 fl (80-96); MEAN PLT VOLUME 7.6 fl (7.5-11.1); NEUTROPHILS 79.3 % (42.8-82.8); PLATELET COUNT 233 K/MM3 (134-434); RDW 14.9 % (11.6-15.6); WHITE BLOOD COUNT 9.2 K/mm3 (4.0-10.0)
[2017-04-20 07:38] LABS: ALBUMIN 2.7 g/dl (3.4-5.0); ANION GAP 9 (8-16); CALCIUM 8.1 mg/dL (8.5-10.1); CO2 31 mmol/L (21-32); COCKROFT - GAULT 64.9655; CREATININE 0.6 mg/dL (0.55-1.02); GLUCOSE,RANDOM 101 mg/dL (74-106); SGOT/AST 22 U/L (15-37); SGPT/ALT 14 U/L (12-78)
[2017-04-20 07:49] LABS: ALK PHOS 99 U/L (45-117); BILIRUBIN,TOTAL 0.8 mg/dL (0.2-1.0); TOT PROT 6.4 g/dl (6.4-8.2); TROPONIN I < 0.02 ng/ml (0.00-0.05)
[2017-04-20] MEDS: METOPROLOL SUCCINATE 25 MG TAB.SR.24H (FP) PO SCH (09:12)
[2017-04-20] MEDS: GABAPENTIN 300 MG CAPSULE (FP) PO SCH (09:13)
[2017-04-20] MEDS: PANTOPRAZOLE 20 MG TABLET (FP) PO SCH (09:13)
[2017-04-20] MEDS: ESCITALOPRAM OXALATE 10 MG TABLET (FP) PO SCH (09:13)
[2017-04-20] MEDS: AZITHROMYCIN IVPB 500 MG/250 ML D5W PRE-DOCKED IVPB SCH (09:14)
[2017-04-20] MEDS: RANITIDINE HCL 150 MG TABLET (FP) PO SCH (09:14)
[2017-04-20] MEDS: RIVAROXABAN 20 MG TABLET PO SCH (09:14)
[2017-04-20] MEDS: cefTRIAXone 1 GM/50 ML BAG (PRE-DOCKED) IVPB SCH (09:55)
[2017-04-20] MEDS ORDERED: amLODIPine BESYLATE 5 MG TABLET (FP) PO SCH (10:00)
[2017-04-20] MEDS ORDERED: PATIENT'S OWN MEDICATION (NON-FORMULARY) (Omeprazole 20 MG) PO SCH (10:00)
[2017-04-20] MEDS ORDERED: LOSARTAN POTASSIUM 25 MG TABLET PO SCH (10:00)
[2017-04-20] MEDS ORDERED: AZITHROMYCIN IVPB 500 MG in DEXTROSE 5%-WATER - 250 ML IVPB SCH (10:00)
[2017-04-20] MEDS ORDERED: CEFTRIAXONE 1 GM in DEXTROSE 5%-WATER - 50 ML IVPB SCH (10:00)
[2017-04-20] MEDS ORDERED: TAMSULOSIN HCL 0.4 MG CAP.ER.24H (FP) PO SCH (10:00)
[2017-04-20] MEDS ORDERED: WARFARIN NA 2 MG TABLET (UD) PO SCH (10:00)
--- NOTE | 2017-04-20 10:14 | HP ---
Admitting History and Physical - Primary Care Physician PCP: Joy Gan S - Admission Chief Complaint: SOB Cough History of Present Illness: The patient is a 86 year old female, BIBA from Senior housing (living alone) with a significant past medical history of HLD, HTN, Afib (on xarelto/oxtalol), and COPD who presents to the emergency department with difficulty breathing and generalized weakness occurring today.. She notes having SOB that is often made worse with any activity. She also has chief complaints of weakness, chills, and a productive cough bring up black phlegm. The patient also notes having Diarrhea. MS reports the patient had an 02 sat of 78 on room air, with left lower lobe crackles, that improved with NRB and was put on CPAP when EMS arrived scene. The patient was recently admitted here for hyponatremia about 2 weeks ago and was discharged with 2 liters of oxygen NC. Pt states the smallest amount of effort will make her very weak. and her daughter mentions her BULWARK CARPENTER states she has been ambulating much less due to her weakness. She denies recent fevers, headache or dizziness. She denies recent nausea, vomit, or constipation. She denies recent dysuria, frequency, urgency or hematuria. She denies recent chest pain. Pt was supposed to see CT Sx/ Interv Cardiology at [facility] for possible TABVR but did not go; said she does not want anything anymore and she just wants to " peacefully" History Source: Patient, Family Member Limitations to Obtaining History: No Limitations - Past Medical History Cardiovascular: Yes: Aortic Stenosis, CAD, HTN, Hyperlipdemia Pulmonary: Yes: COPD Gastrointestinal: Yes: Cancer, Constipation Renal/: Yes: Renal Inusuff ...: No Psych: Yes: Anxiety, Depression Musculoskeletal: Yes: Chronic low back pain, Osteoarthritis - Smoking History Smoking history: Never smoked Have you smoked in the past 12 months: No - Alcohol/Substance Use Hx Alcohol Use: No History of Substance Use: reports: None - Social History Usual Living Arrangement: Yes: Alone ADL: Independent History of Recent Travel: No Home Medications - Allergies Allergies/Adverse Reactions: Allergies Allergy/AdvReac Type Severity Reaction Status Date / Time No Known Allergies Allergy Verified 04/19/17 13:32 - Home Medications Home Medications: Ambulatory Orders Atorvastatin Ca [Lipitor] 20 mg PO HS 04/19/17 Escitalopram Oxalate [Lexapro -] 10 mg PO DAILY 04/20/17 Gabapentin [Neurontin] 300 mg PO DAILY 04/20/17 Ranitidine HCl [Zantac] 150 mg PO DAILY 04/20/17 Rivaroxaban [Xarelto -] 20 mg PO DAILY 04/20/17 Tamsulosin HCl [Flomax] 0.4 mg PO DAILY 04/20/17 Tramadol HCl 50 mg PO HS 04/20/17 Albuterol 0.083% Nebulizer Spring [Ventolin 0.083% Nebulizer Soln -] 1 amp NEB Q4H PRN #0 amp 04/22/17 Losartan Potassium [Cozaar -] 25 mg PO DAILY tablet 04/22/17 Metoprolol Succinate [Toprol XL -] 25 mg PO DAILY tab 04/22/17 Pantoprazole Sodium [Protonix -] 20 mg PO DAILY tab 04/22/17 Family Disease History - Family Disease History Family History: Unremarkable Review of Systems - Review of Systems Constitutional: denies: Chills, Fever Eyes: denies: Blurred Vision, Double Vision HENT: denies: Difficult Swallowing, Ear Pain Neck: denies: Stiffness, Tenderness Cardiovascular: reports: Shortness of Breath. denies: Chest Pain Respiratory: reports: Cough, Exercise Intolerance, SOB, SOB on Exertion. denies : Orthopnea, PND Gastrointestinal: denies: Abdominal Pain, Constipation, Diarrhea, Vomiting Genitourinary: denies: Dysuria, Flank Pain Musculoskeletal: reports: Back Pain (chronic) Neurological: denies: Change in LOC, Change in Speech, Confusion, Dizziness Hematology/Lymphatic: denies: Easily Bruised, Excessive Bleeding Psychiatric: reports: Altered Sleep Pattern, Anxiety, Depression. denies: Suicidal Physical Examination Vital Signs: Vital Signs Temperature 98.5 F 04/20/17 06:00 Pulse Rate 88 04/20/17 06:00 Respiratory Rate 22 04/20/17 06:00 Blood Pressure 114/67 04/20/17 06:00 O2 Sat by Pulse Oximetry (%) 95 04/19/17 21:00 Constitutional: Yes: No Distress, Calm Eyes: Yes: Conjunctiva Clear HENT: Yes: Atraumatic Neck: Yes: Supple Cardiovascular: Yes: Regular Rate and Rhythm Respiratory: Yes: Rales, Rhonchi Gastrointestinal: Yes: Soft. No: Distention, Tenderness Musculoskeletal: No: Joint Stiffness, Joint Swelling Extremities: No: Cold, Cool Edema: No Peripheral Pulses WNL: Yes Integumentary: No: Rash, Venous Stasis Changes Neurological: Yes: WNL, Alert, Oriented ...Motor Strength: WNL Psychiatric: Yes: WNL, Alert, Oriented. No: Agitated, Suicidal Ideation Labs: CBC, BMP 04/20/17 05:35 04/20/17 05:35 Imaging - Results Chest X-ray: Report Reviewed Other: Report Reviewed Assessment/Plan The patient is a 86 year old female, BIBA from Senior housing (living alone) with a significant past medical history of HLD, HTN, Afib (on xarelto/oxtalol), and COPD who presents to the emergency department with difficulty breathing and generalized weakness occurring today.. CXR c/w PNA and also some CHF; hypoNa anxiety, depression admit to telemetry IV lasix iv ATB nebs, O2 NC or BIPAP (currently needs Bipap but she does not want it) cardio and pulm eval prognosis guarded d/w pt and daughter Meghana at bedside; Meghana said pt had gradual failure to thrive after her brother (Cris's son) few months ago and she does not have any willing to live anymore; she is on lexapro but does not help and she is not interested in other treatments or psych eval because they "can't bring her son back". Cris signed DNR DNI and daughter is aware and agrees with it; pt and family aware of meaning and consequences and they agree to have comfort care no aggressive interventions but agreed for lasix and ATB for now falls decubs DVT aspiration PFXd/w pt and staff d/w daughter t time 75 min
[2017-04-20] MEDS ORDERED: FUROSEMIDE 40 MG/4 ML INJECTABLE VIAL IVPUSH SCH ×2 (10:30→23:07)
--- NOTE | 2017-04-20 10:33 | EKG ---
Test Reason : Blood Pressure : / mmHG Vent. Rate : 081 BPM Atrial Rate : 300 BPM P-R Int : 000 ms QRS Dur : 086 ms QT Int : 398 ms P-R-T Axes : 000 014 024 degrees QTc Int : 462 ms POOR DATA QUALITY, INTERPRETATION MAY BE ADVERSELY AFFECTED ATRIAL FIBRILLATION ABNORMAL ECG WHEN COMPARED WITH ECG OF 30-MAR-2017 18:57, ATRIAL FIBRILLATION HAS REPLACED SINUS RHYTHM Confirmed by GINO HINDS, SHERRY ([id number]) on 04/20/2017 10:33:15 AM Referred By: Confirmed By:SHERRY CHRISTIAN MD
[2017-04-20] MEDS: ALBUTEROL SO4 0.083% IH SOL 2.5 MG/3 ML VIAL.NEB. NEB PRN (11:17)
--- NOTE | 2017-04-20 14:00 | CON.PULM ---
Consult Consult Specialty:: PULMONARY Referred by:: Dr. Gan Reason for Consultation:: shortness of breath - History of Present Illness Chief Complaint: shortness of breath History of Present Illness: 86yo female with h/o HTN, hyperlipidemia, atrial fibrillation on anticoagulation , LV diastolic dysfunction, severe aortic stenosis, pulmonary HTN who presents with worsening shortness of breath starting yesterday. She reports dyspnea with minimal exertion even with just dressing. No chest pain or palpitations. No fevers, chills or sweats. Does report a cough productive of clear sputum but without wheezing. Noted to be hypoxic to 78% on room air, she was discharged recently with home O2, placed on BiPAP which she states gave her a headache. She had a CT chest last admission as well which showed chronic interstitial lung disease. She was being evaluated for a TAVR as an outpt but given her pulmonary findings, now deemed not a candidate. - History Source History Provided By: Patient, Family Member, Medical Record Limitations to Obtaining History: No Limitations - Past Medical History Cardio/Vascular: Yes: Aortic Stenosis, CAD, HTN, Hyperlipdemia Pulmonary: Yes: COPD Gastrointestinal: Yes: Cancer, Constipation Renal/: Yes: Renal Inusuff ...: No Psych: Yes: Anxiety, Depression Musculoskeletal: Yes: Chronic low back pain, Osteoarthritis - Alcohol/Substance Use Hx Alcohol Use: No History of Substance Use: reports: None - Smoking History Smoking history: Never smoked Have you smoked in the past 12 months: No - Social History ADL: Independent History of Recent Travel: No Home Medications - Allergies Allergies/Adverse Reactions: Allergies Allergy/AdvReac Type Severity Reaction Status Date / Time No Known Allergies Allergy Verified 04/19/17 13:32 - Home Medications Home Medications: Ambulatory Orders Amlodipine Besylate [Norvasc -] 5 mg PO DAILY 04/19/17 Atorvastatin Ca [Lipitor] 20 mg PO HS 04/19/17 Sotalol HCl [Betapace] 40 mg PO BID 04/19/17 Zolpidem Tartrate [Ambien] 5 mg PO HS 04/19/17 Escitalopram Oxalate [Lexapro -] 10 mg PO DAILY 04/20/17 Gabapentin [Neurontin] 300 mg PO DAILY 04/20/17 Losartan Potassium 50 mg PO DAILY 04/20/17 Metoprolol Succinate [Toprol Xl] 50 mg PO DAILY 04/20/17 Ranitidine HCl [Zantac] 150 mg PO DAILY 04/20/17 Rivaroxaban [Xarelto -] 20 mg PO DAILY 04/20/17 Tamsulosin HCl [Flomax] 0.4 mg PO DAILY 04/20/17 Tramadol HCl 50 mg PO HS 04/20/17 Review of Systems - Review of Systems Constitutional: reports: Weakness. denies: Chills, Fever Eyes: denies: Recent Change in Vision HENT: denies: Nasal Congestion, Throat Pain Neck: denies: Stiffness, Tenderness Cardiovascular: reports: Shortness of Breath. denies: Chest Pain, Edema, Palpitations Respiratory: reports: Cough, Exercise Intolerance, SOB, SOB on Exertion. denies : Hemoptysis, Wheezing Gastrointestinal: denies: Abdominal Pain, Nausea, Vomiting Genitourinary: denies: Dysuria, Hematuria Neurological: denies: Dizziness, Headache Physical Exam Vital Sings: Vital Signs Temperature 98.5 F 04/20/17 10:00 Pulse Rate 82 04/20/17 11:15 Respiratory Rate 22 04/20/17 10:00 Blood Pressure 100/60 04/20/17 10:00 O2 Sat by Pulse Oximetry (%) 96 04/20/17 11:15 Constitutional: Yes: Mild Distress (mildly tachypneic at rest) Eyes: Yes: Conjunctiva Clear, EOM Intact HENT: Yes: Atraumatic, Normocephalic Neck: Yes: Supple, Trachea Midline Cardiovascular: Yes: Murmur (harsh systolic RUSB) Respiratory: Yes: Rales (coarse crackles throughout) ...Clubbing: No Gastrointestinal: Yes: Normal Bowel Sounds, Soft. No: Tenderness Edema: No Neurological: Yes: Alert, Oriented Labs: CBC, BMP 04/20/17 05:35 04/20/17 05:35 Imaging - Results Chest X-ray: Report Reviewed, Image Reviewed Problem List - Problems (1) Acute on chronic diastolic (congestive) heart failure Code(s): I50.33 - ACUTE ON CHRONIC DIASTOLIC (CONGESTIVE) HEART FAILURE (2) Atrial fibrillation Code(s): I48.91 - UNSPECIFIED ATRIAL FIBRILLATION (3) Severe aortic stenosis Code(s): I35.0 - NONRHEUMATIC AORTIC (VALVE) STENOSIS (4) Pulmonary hypertension Code(s): I27.2 - OTHER SECONDARY PULMONARY HYPERTENSION (5) ILD (interstitial lung disease) Code(s): J84.9 - INTERSTITIAL PULMONARY DISEASE, UNSPECIFIED (6) Hyponatremia Code(s): E87.1 - HYPO-OSMOLALITY AND HYPONATREMIA (7) Lactic acidosis Code(s): E87.2 - ACIDOSIS (8) Acute pulmonary edema Code(s): J81.0 - ACUTE PULMONARY EDEMA Assessment/Plan Acute Hypoxic Respiratory Failure Acute Pulmonary Edema Acute on Chronic LV Diastolic Heart Failure Severe Aortic Stenosis Atrial Fibrillation Pulmonary HTN Hyponatremia Lactic Acidosis from hypoxia now resolved - continue lasix - monitor urine output, creatinine - O2 to keep SpO2 >90% - BiPAP as needed to assist in work of breathing but appears to be stabilizing now - rate control - continue anticoagulation - less likely pneumonia, can d/c antibiotics - discussed with pt and daughter at bedside, since her son's last year, she has been depressed and has "lost her will", she does not have a good quality of life as she gets dyspneic with minimal activity and now is not a candidate for TAVR - she does not want any aggressive or invasive treatments, will accept medical treatment, considering hospice care and placement Thank you for this consult Giovanni Mendoza MD
--- NOTE | 2017-04-20 18:54 | PN ---
Progress Note, Physician Chief Complaint: PT alert; dyspnea on mild exertion; no chestr pain. Daughter and grandchildren at bedside. History of Present Illness: The patient is an 86 year old female, BIBA from Senior housing (living alone) with a significant past medical history of HLD, HTN, Afib (on xarelto/oxtalol), and COPD who presents to the emergency department with difficulty breathing and generalized weakness occurring today.. She notes having SOB that is often made worse with any activity. She also has chief complaints of weakness, chills, and a productive cough bring up black phlegm. The patient also notes having Diarrhea. MS reports the patient had an 02 sat of 78 on room air, with left lower lobe crackles, that improved with NRB and was put on CPAP when EMS arrived scene. The patient was recently admitted here for hyponatremia about 2 weeks ago and was discharged with 2 liters of oxygen NC. Pt states the smallest amount of effort will make her very weak. and her daughter mentions her PICKER AND PACKER states she has been ambulating much less due to her weakness. She denies recent fevers, headache or dizziness. She denies recent nausea, vomit, or constipation. She denies recent dysuria, frequency, urgency or hematuria. She denies recent chest pain. Allergies: NKA Past surgical history: Right BKA Social history: Nonsmoker. Denies EtOH use and recreational drug use. Primary Care Physician: Joy Gan - Current Medication List Current Medications: Active Medications Albuterol Sulfate (Ventolin 0.083% Nebulizer Soln -) 1 amp NEB Q4H PRN PRN Reason: SHORT OF BREATH/WHEEZING Last Admin: 04/20/17 11:17 Dose: 1 amp Atorvastatin Calcium (Lipitor -) 20 mg PO HS [facility] Last Admin: 04/19/17 21:33 Dose: 20 mg Azithromycin (Zithromax 500mg Ivpb (Pre-Docked)) 500 mg IVPB DAILY [facility] Last Admin: 04/20/17 09:14 Dose: 500 mg Ceftriaxone Sodium (Rocephin 1gm Ivpb (Pre-Docked)) 1 gm IVPB DAILY [facility] Last Admin: 04/20/17 09:55 Dose: 1 gm Escitalopram Oxalate (Lexapro -) 10 mg PO DAILY [facility] Last Admin: 04/20/17 09:13 Dose: 10 mg Furosemide (Lasix Injection -) 40 mg IVPUSH DAILY [facility] Last Admin: 04/20/17 11:36 Dose: 40 mg Gabapentin (Neurontin -) 300 mg PO DAILY [facility] Last Admin: 04/20/17 09:13 Dose: 300 mg Losartan Potassium (Cozaar -) 25 mg PO DAILY [facility] Last Admin: 04/20/17 09:13 Dose: 25 mg Metoprolol Succinate (Toprol Xl -) 25 mg PO DAILY [facility] Last Admin: 04/20/17 09:12 Dose: 25 mg Pantoprazole Sodium (Protonix -) 20 mg PO DAILY [facility] Last Admin: 04/20/17 09:13 Dose: 20 mg Ranitidine HCl (Zantac -) 150 mg PO DAILY [facility] Last Admin: 04/20/17 09:14 Dose: 150 mg Rivaroxaban (Xarelto -) 20 mg PO DAILY [facility] Last Admin: 04/20/17 09:14 Dose: 20 mg Tamsulosin HCl (Flomax -) 0.4 mg PO DAILY [facility] Last Admin: 04/20/17 09:13 Dose: 0.4 mg Tramadol HCl (Ultram -) 50 mg PO PRN PRN Reason: PAIN LEVEL 6-10 - Objective Vital Signs: Vital Signs Temperature 98.4 F 04/20/17 14:00 Pulse Rate 93 H 04/20/17 14:00 Respiratory Rate 20 04/20/17 14:00 Blood Pressure 80/45 04/20/17 14:00 O2 Sat by Pulse Oximetry (%) 94 L 04/20/17 14:12 Constitutional: Yes: Well Nourished Eyes: Yes: WNL HENT: Yes: WNL Neck: Yes: WNL Cardiovascular: Yes: Regular Rate and Rhythm, Murmur (4/6 CORNELIUS, RSB-->apex), S1 ( decreased), S2 Respiratory: Yes: Diminished, Rales (coarse bilater 1/2 way up), SOB on Exertion Gastrointestinal: Yes: Soft ...Rectal Exam: Yes: Deferred Genitourinary: Yes: Anuria Musculoskeletal: Yes: Muscle Weakness Extremities: Yes: Cool Edema: No Peripheral Pulses WNL: No Peripheral Pulses: Left Doralis Pedis: 1+, Right Dorsalis Pedis: 1+ Integumentary: Yes: WNL Neurological: Yes: Alert, Oriented Psychiatric: Yes: Alert, Oriented Labs: CBC, BMP 04/20/17 05:35 04/20/17 05:35 INR, PTT INR 1.55 (0.82-1.09) H D 04/19/17 14:25 Abnormal Lab Results 04/19/17 04/20/17 04/20/17 15:14 05:35 05:35 RBC 3.32 L Hgb 9.8 L D Hct 28.8 L Lymphocytes % 6.9 L Monocytes % 12.3 H Sodium 128 L Chloride 88 L Calcium 8.1 L Albumin 2.7 L Ur Specific [place] 1.000 L Problem List - Problems (1) ILD (interstitial lung disease) Code(s): J84.9 - INTERSTITIAL PULMONARY DISEASE, UNSPECIFIED (2) Acute on chronic diastolic (congestive) heart failure Code(s): I50.33 - ACUTE ON CHRONIC DIASTOLIC (CONGESTIVE) HEART FAILURE (3) Acute pulmonary edema Code(s): J81.0 - ACUTE PULMONARY EDEMA (4) Depression Code(s): F32.9 - MAJOR DEPRESSIVE DISORDER, SINGLE EPISODE, UNSPECIFIED (5) Diastolic CHF Code(s): I50.30 - UNSPECIFIED DIASTOLIC (CONGESTIVE) HEART FAILURE (6) HTN (hypertension) Code(s): I10 - ESSENTIAL (PRIMARY) HYPERTENSION (7) Hyponatremia syndrome Code(s): E87.1 - HYPO-OSMOLALITY AND HYPONATREMIA (8) Severe aortic stenosis Assessment/Plan: Pt does not want evaluation for TAVR; says she will go to [place] (Hospice). Code(s): I35.0 - NONRHEUMATIC AORTIC (VALVE) STENOSIS (9) Atrial fibrillation Assessment/Plan: on metoprolol and Xarelto. Code(s): I48.91 - UNSPECIFIED ATRIAL FIBRILLATION
[2017-04-20] MEDS: ATORVASTATIN CA 20 MG TABLET (FP) PO SCH (21:19)
[2017-04-20] MEDS ORDERED: traMADol HCL 50 MG TABLET PO PRN (22:00)
[2017-04-21 07:34] LABS: BASOPHIL 0.5 % (0-2.0); EOSINOPHIL 1.8 % (0-4.5); MCH 28.6 pg (25.7-33.7); MCHC 32.7 g/dl (32.0-36.0); MEAN CELL VOLUME 87.4 fl (80-96); NEUTROPHILS 76.1 % (42.8-82.8); PLATELET COUNT 217 K/MM3 (134-434); WHITE BLOOD COUNT 8.1 K/mm3 (4.0-10.0)
[2017-04-21 07:59] LABS: CALCIUM 8.4 mg/dL (8.5-10.1)
[2017-04-21 08:00] LABS: CREATININE 0.8 mg/dL (0.55-1.02)
[2017-04-21 08:22] LABS: COCKROFT - GAULT 47.124
[2017-04-21] MEDS: AZITHROMYCIN IVPB 500 MG/250 ML D5W PRE-DOCKED IVPB SCH (09:05)
[2017-04-21] MEDS: GABAPENTIN 300 MG CAPSULE (FP) PO SCH (09:06)
[2017-04-21] MEDS: PANTOPRAZOLE 20 MG TABLET (FP) PO SCH (09:06)
[2017-04-21] MEDS: cefTRIAXone 1 GM/50 ML BAG (PRE-DOCKED) IVPB SCH (09:06)
[2017-04-21] MEDS: RIVAROXABAN 20 MG TABLET PO SCH (09:07)
[2017-04-21] MEDS: METOPROLOL SUCCINATE 25 MG TAB.SR.24H (FP) PO SCH (09:07)
[2017-04-21] MEDS: RANITIDINE HCL 150 MG TABLET (FP) PO SCH (09:07)
[2017-04-21] MEDS: FUROSEMIDE 40 MG/4 ML INJECTABLE VIAL IVPUSH SCH (09:07)
[2017-04-21] MEDS: ESCITALOPRAM OXALATE 10 MG TABLET (FP) PO SCH (09:07)
--- NOTE | 2017-04-21 09:36 | PN ---
Progress Note, Physician Chief Complaint: in bed feels a little better now, is on O2 NCdropped BP after IV lasix, the other BP meds held, BP better now pt and daughter spoke with palliative care about Jill Dowd - Current Medication List Current Medications: Active Medications Albuterol Sulfate (Ventolin 0.083% Nebulizer Soln -) 1 amp NEB Q4H PRN PRN Reason: SHORT OF BREATH/WHEEZING Last Admin: 04/20/17 11:17 Dose: 1 amp Atorvastatin Calcium (Lipitor -) 20 mg PO HS [facility] Last Admin: 04/20/17 21:19 Dose: 20 mg Azithromycin (Zithromax 500mg Ivpb (Pre-Docked)) 500 mg IVPB DAILY [facility] Last Admin: 04/21/17 09:05 Dose: 500 mg Ceftriaxone Sodium (Rocephin 1gm Ivpb (Pre-Docked)) 1 gm IVPB DAILY [facility] Last Admin: 04/21/17 09:06 Dose: 1 gm Escitalopram Oxalate (Lexapro -) 10 mg PO DAILY [facility] Last Admin: 04/21/17 09:07 Dose: 10 mg Furosemide (Lasix Injection -) 20 mg IVPUSH DAILY [facility] Last Admin: 04/21/17 09:07 Dose: 20 mg Gabapentin (Neurontin -) 300 mg PO DAILY [facility] Last Admin: 04/21/17 09:06 Dose: 300 mg Metoprolol Succinate (Toprol Xl -) 25 mg PO DAILY [facility] Last Admin: 04/21/17 09:07 Dose: 25 mg Pantoprazole Sodium (Protonix -) 20 mg PO DAILY [facility] Last Admin: 04/21/17 09:06 Dose: 20 mg Ranitidine HCl (Zantac -) 150 mg PO DAILY [facility] Last Admin: 04/21/17 09:07 Dose: 150 mg Rivaroxaban (Xarelto -) 20 mg PO DAILY [facility] Last Admin: 04/21/17 09:07 Dose: 20 mg Tramadol HCl (Ultram -) 50 mg PO HS PRN PRN Reason: PAIN LEVEL 6-10 - Objective Vital Signs: Vital Signs Temperature 98.8 F 04/21/17 05:54 Pulse Rate 92 H 04/21/17 05:54 Respiratory Rate 20 04/21/17 05:54 Blood Pressure 107/48 04/21/17 05:54 O2 Sat by Pulse Oximetry (%) 94 L 04/20/17 21:00 Constitutional: Yes: No Distress, Calm Eyes: Yes: Conjunctiva Clear HENT: Yes: Atraumatic Neck: Yes: Supple Cardiovascular: Yes: Regular Rate and Rhythm Respiratory: Yes: Rales, Rhonchi Gastrointestinal: Yes: Soft. No: Distention, Tenderness Genitourinary: No: CVA Tenderness - Left, CVA Tenderness - Right Musculoskeletal: No: Joint Stiffness, Joint Swelling Extremities: No: Cold, Cool Edema: No Integumentary: Yes: Venous Stasis Changes. No: Rash Neurological: Yes: WNL, Alert, Oriented ...Motor Strength: WNL Psychiatric: Yes: WNL, Alert, Oriented. No: Agitated, Suicidal Ideation Labs: CBC, BMP 04/21/17 05:38 04/21/17 05:38 INR, PTT INR 1.55 (0.82-1.09) H D 04/19/17 14:25 - ....Imaging Other: Report Reviewed Assessment/Plan The patient is a 86 year old female, BIBA from Senior housing (living alone) with a significant past medical history of HLD, HTN, Afib (on xarelto/oxtalol), and COPD who presents to the emergency department with difficulty breathing and generalized weakness occurring today.. CXR c/w PNA and also some CHF; hypoNa anxiety, depression admitted to telemetry IV lasix iv ATB nebs, O2 NC cardio and pulm eval prognosis guarded d/w pt and daughter Savannah at bedside; d/w pulm dr Hillman and cardio dr Medrano DNR DNI; Jill castillo T time 40 min
--- NOTE | 2017-04-21 11:28 | PN ---
Progress Note, Physician History of Present Illness: pulmonary] alert,less congested,hypoxic on nasal o2 sat 86% - Current Medication List Current Medications: Active Medications Albuterol Sulfate (Ventolin 0.083% Nebulizer Soln -) 1 amp NEB Q4H PRN PRN Reason: SHORT OF BREATH/WHEEZING Last Admin: 04/20/17 11:17 Dose: 1 amp Atorvastatin Calcium (Lipitor -) 20 mg PO HS [facility] Last Admin: 04/20/17 21:19 Dose: 20 mg Azithromycin (Zithromax 500mg Ivpb (Pre-Docked)) 500 mg IVPB DAILY [facility] Last Admin: 04/21/17 09:05 Dose: 500 mg Ceftriaxone Sodium (Rocephin 1gm Ivpb (Pre-Docked)) 1 gm IVPB DAILY [facility] Last Admin: 04/21/17 09:06 Dose: 1 gm Escitalopram Oxalate (Lexapro -) 10 mg PO DAILY [facility] Last Admin: 04/21/17 09:07 Dose: 10 mg Furosemide (Lasix Injection -) 20 mg IVPUSH DAILY [facility] Last Admin: 04/21/17 09:07 Dose: 20 mg Gabapentin (Neurontin -) 300 mg PO DAILY [facility] Last Admin: 04/21/17 09:06 Dose: 300 mg Metoprolol Succinate (Toprol Xl -) 25 mg PO DAILY [facility] Last Admin: 04/21/17 09:07 Dose: 25 mg Pantoprazole Sodium (Protonix -) 20 mg PO DAILY [facility] Last Admin: 04/21/17 09:06 Dose: 20 mg Ranitidine HCl (Zantac -) 150 mg PO DAILY [facility] Last Admin: 04/21/17 09:07 Dose: 150 mg Rivaroxaban (Xarelto -) 20 mg PO DAILY [facility] Last Admin: 04/21/17 09:07 Dose: 20 mg Tramadol HCl (Ultram -) 50 mg PO HS PRN PRN Reason: PAIN LEVEL 6-10 - Objective Vital Signs: Vital Signs Temperature 99 F 04/21/17 10:00 Pulse Rate 78 04/21/17 10:03 Respiratory Rate 20 04/21/17 10:00 Blood Pressure 108/64 04/21/17 10:00 O2 Sat by Pulse Oximetry (%) 93 L 04/21/17 10:03 Constitutional: Yes: Well Nourished, Calm, Thin Eyes: Yes: WNL HENT: Yes: WNL Neck: Yes: WNL Cardiovascular: Yes: Pulse Irregular, S1, S2 Respiratory: Yes: Rales, Rhonchi (bilateral rales and rhonchi) Gastrointestinal: Yes: Normal Bowel Sounds, Soft Extremities: Yes: WNL Edema: No Labs: CBC, BMP 04/21/17 05:38 04/21/17 05:38 INR, PTT INR 1.55 (0.82-1.09) H D 04/19/17 14:25 Problem List - Problems (1) Acute hypoxemic respiratory failure Code(s): J96.01 - ACUTE RESPIRATORY FAILURE WITH HYPOXIA Assessment/Plan Problem List - Problems (1) Acute on chronic diastolic (congestive) heart failure Code(s): I50.33 - ACUTE ON CHRONIC DIASTOLIC (CONGESTIVE) HEART FAILURE (2) Atrial fibrillation Code(s): I48.91 - UNSPECIFIED ATRIAL FIBRILLATION (3) Severe aortic stenosis Code(s): I35.0 - NONRHEUMATIC AORTIC (VALVE) STENOSIS (4) Pulmonary hypertension Code(s): I27.2 - OTHER SECONDARY PULMONARY HYPERTENSION (5) ILD (interstitial lung disease) Code(s): J84.9 - INTERSTITIAL PULMONARY DISEASE, UNSPECIFIED (6) Hyponatremia Code(s): E87.1 - HYPO-OSMOLALITY AND HYPONATREMIA (7) Lactic acidosis Code(s): E87.2 - ACIDOSIS (8) Acute pulmonary edema Code(s): J81.0 - ACUTE PULMONARY EDEMA Assessment/Plan Acute Hypoxic Respiratory Failure Acute Pulmonary Edema Acute on Chronic LV Diastolic Heart Failure Severe Aortic Stenosis Atrial Fibrillation Pulmonary HTN Hyponatremia Lactic Acidosis from hypoxia now resolved - continue lasix - monitor urine output, creatinine - O2 to keep SpO2 >90% - BiPAP prn if pt cooperative - rate control - continue anticoagulation - - discussed with pt and daughter at bedside, since her son's last year, she has been depressed and has "lost her will", she does not have a good quality of life as she gets dyspneic with minimal activity and now is not a candidate for TAVR - she does not want any aggressive or invasive treatments, will accept medical treatment, considering hospice care and placement DR LOO
[2017-04-21] MEDS: ALBUTEROL SO4 0.083% IH SOL 2.5 MG/3 ML VIAL.NEB. NEB PRN (12:02)
--- NOTE | 2017-04-21 13:38 | PN ---
Progress Note, Physician Chief Complaint: PT alert; dyspnea on mild exertion; no chestr pain. Anxious; wants to know when she will be transferred to [place]. History of Present Illness: The patient is an 86 year old female, BIBA from Senior housing (living alone) with a significant past medical history of HLD, HTN, Afib (on xarelto/oxtalol), and COPD who presents to the emergency department with difficulty breathing and generalized weakness occurring today.. She notes having SOB that is often made worse with any activity. She also has chief complaints of weakness, chills, and a productive cough bring up black phlegm. The patient also notes having Diarrhea. MS reports the patient had an 02 sat of 78 on room air, with left lower lobe crackles, that improved with NRB and was put on CPAP when EMS arrived scene. The patient was recently admitted here for hyponatremia about 2 weeks ago and was discharged with 2 liters of oxygen NC. Pt states the smallest amount of effort will make her very weak. and her daughter mentions her CLOTH MEASURER states she has been ambulating much less due to her weakness. She denies recent fevers, headache or dizziness. She denies recent nausea, vomit, or constipation. She denies recent dysuria, frequency, urgency or hematuria. She denies recent chest pain. Allergies: NKA Past surgical history: Right BKA Social history: Nonsmoker. Denies EtOH use and recreational drug use. Primary Care Physician: Joy Gan - Current Medication List Current Medications: Active Medications Albuterol Sulfate (Ventolin 0.083% Nebulizer Soln -) 1 amp NEB Q4H PRN PRN Reason: SHORT OF BREATH/WHEEZING Last Admin: 04/21/17 12:02 Dose: 1 amp Atorvastatin Calcium (Lipitor -) 20 mg PO HS [facility] Last Admin: 04/20/17 21:19 Dose: 20 mg Azithromycin (Zithromax 500mg Ivpb (Pre-Docked)) 500 mg IVPB DAILY [facility] Last Admin: 04/21/17 09:05 Dose: 500 mg Ceftriaxone Sodium (Rocephin 1gm Ivpb (Pre-Docked)) 1 gm IVPB DAILY [facility] Last Admin: 04/21/17 09:06 Dose: 1 gm Escitalopram Oxalate (Lexapro -) 10 mg PO DAILY [facility] Last Admin: 04/21/17 09:07 Dose: 10 mg Furosemide (Lasix Injection -) 20 mg IVPUSH DAILY [facility] Last Admin: 04/21/17 09:07 Dose: 20 mg Gabapentin (Neurontin -) 300 mg PO DAILY [facility] Last Admin: 04/21/17 09:06 Dose: 300 mg Metoprolol Succinate (Toprol Xl -) 25 mg PO DAILY [facility] Last Admin: 04/21/17 09:07 Dose: 25 mg Pantoprazole Sodium (Protonix -) 20 mg PO DAILY [facility] Last Admin: 04/21/17 09:06 Dose: 20 mg Ranitidine HCl (Zantac -) 150 mg PO DAILY [facility] Last Admin: 04/21/17 09:07 Dose: 150 mg Rivaroxaban (Xarelto -) 20 mg PO DAILY [facility] Last Admin: 04/21/17 09:07 Dose: 20 mg Tramadol HCl (Ultram -) 50 mg PO PRN PRN Reason: PAIN LEVEL 6-10 - Objective Vital Signs: Vital Signs Temperature 99 F 04/21/17 10:00 Pulse Rate 78 04/21/17 10:03 Respiratory Rate 20 04/21/17 10:00 Blood Pressure 108/64 04/21/17 10:00 O2 Sat by Pulse Oximetry (%) 93 L 04/21/17 10:03 Constitutional: Yes: Anxious Eyes: Yes: WNL HENT: Yes: WNL Neck: Yes: WNL Cardiovascular: Yes: Pulse Irregular, Murmur (4/6 CORNELIUS, RSB-->apex), S1 ( diminished), S4 Respiratory: Yes: Diminished Gastrointestinal: Yes: Soft ...Rectal Exam: Yes: Deferred Genitourinary: No: Anuria Breast(s): Yes: WNL Musculoskeletal: Yes: Muscle Weakness Extremities: Yes: Cool Edema: No Peripheral Pulses WNL: No Peripheral Pulses: Left Doralis Pedis: 1+, Right Dorsalis Pedis: 1+ Integumentary: Yes: WNL Neurological: Yes: Alert, Oriented, Weakness Psychiatric: Yes: Other (anxiety/depression) Labs: CBC, BMP 04/21/17 05:38 04/21/17 05:38 INR, PTT INR 1.55 (0.82-1.09) H D 04/19/17 14:25 Problem List - Problems (1) ILD (interstitial lung disease) Code(s): J84.9 - INTERSTITIAL PULMONARY DISEASE, UNSPECIFIED (2) Acute on chronic diastolic (congestive) heart failure Code(s): I50.33 - ACUTE ON CHRONIC DIASTOLIC (CONGESTIVE) HEART FAILURE (3) Acute pulmonary edema Code(s): J81.0 - ACUTE PULMONARY EDEMA (4) Depression Code(s): F32.9 - MAJOR DEPRESSIVE DISORDER, SINGLE EPISODE, UNSPECIFIED (5) Diastolic CHF Code(s): I50.30 - UNSPECIFIED DIASTOLIC (CONGESTIVE) HEART FAILURE (6) HTN (hypertension) Code(s): I10 - ESSENTIAL (PRIMARY) HYPERTENSION (7) Hyponatremia syndrome Code(s): E87.1 - HYPO-OSMOLALITY AND HYPONATREMIA (8) Severe aortic stenosis Assessment/Plan: Pt (and family) do not want evaluation for TAVR; says she will go to [facility] ( Hospice). Discussed pt with Dr. Kayce Gan, who confirmed the above. Code(s): I35.0 - NONRHEUMATIC AORTIC (VALVE) STENOSIS (9) Atrial fibrillation Assessment/Plan: on metoprolol and Xarelto. Code(s): I48.91 - UNSPECIFIED ATRIAL FIBRILLATION
[2017-04-21] MEDS: ATORVASTATIN CA 20 MG TABLET (FP) PO SCH (21:26)
--- NOTE | 2017-04-22 06:28 | PN ---
Progress Note, Physician Chief Complaint: in bed NAD; daughter at bedside; BP and O2 better but pt is weak can not get OOB - Current Medication List Current Medications: Active Medications Albuterol Sulfate (Ventolin 0.083% Nebulizer Soln -) 1 amp NEB Q4H PRN PRN Reason: SHORT OF BREATH/WHEEZING Last Admin: 04/21/17 12:02 Dose: 1 amp Atorvastatin Calcium (Lipitor -) 20 mg PO HS [facility] Last Admin: 04/21/17 21:26 Dose: 20 mg Azithromycin (Zithromax 500mg Ivpb (Pre-Docked)) 500 mg IVPB DAILY [facility] Last Admin: 04/21/17 09:05 Dose: 500 mg Ceftriaxone Sodium (Rocephin 1gm Ivpb (Pre-Docked)) 1 gm IVPB DAILY [facility] Last Admin: 04/21/17 09:06 Dose: 1 gm Escitalopram Oxalate (Lexapro -) 10 mg PO DAILY [facility] Last Admin: 04/21/17 09:07 Dose: 10 mg Furosemide (Lasix Injection -) 20 mg IVPUSH DAILY [facility] Last Admin: 04/21/17 09:07 Dose: 20 mg Gabapentin (Neurontin -) 300 mg PO DAILY [facility] Last Admin: 04/21/17 09:06 Dose: 300 mg Metoprolol Succinate (Toprol Xl -) 25 mg PO DAILY [facility] Last Admin: 04/21/17 09:07 Dose: 25 mg Pantoprazole Sodium (Protonix -) 20 mg PO DAILY [facility] Last Admin: 04/21/17 09:06 Dose: 20 mg Ranitidine HCl (Zantac -) 150 mg PO DAILY [facility] Last Admin: 04/21/17 09:07 Dose: 150 mg Rivaroxaban (Xarelto -) 20 mg PO DAILY [facility] Last Admin: 04/21/17 09:07 Dose: 20 mg Tramadol HCl (Ultram -) 50 mg PO HS PRN PRN Reason: PAIN LEVEL 6-10 - Objective Vital Signs: Vital Signs Temperature 98.8 F 04/22/17 05:13 Pulse Rate 83 04/22/17 05:13 Respiratory Rate 20 04/22/17 05:13 Blood Pressure 129/61 04/22/17 05:13 O2 Sat by Pulse Oximetry (%) 95 04/21/17 21:00 Constitutional: Yes: No Distress, Calm Eyes: Yes: Conjunctiva Clear HENT: Yes: Atraumatic Neck: Yes: Supple Cardiovascular: Yes: Regular Rate and Rhythm Respiratory: Yes: Diminished Gastrointestinal: Yes: Soft. No: Distention, Tenderness Genitourinary: No: CVA Tenderness - Left, CVA Tenderness - Right, Hematuria Musculoskeletal: No: Joint Stiffness, Joint Swelling Extremities: No: Cold, Cool Edema: No Peripheral Pulses WNL: Yes Integumentary: No: Rash, Venous Stasis Changes Neurological: Yes: WNL, Alert, Oriented ...Motor Strength: WNL Psychiatric: Yes: WNL, Alert, Oriented. No: Agitated, Suicidal Ideation Labs: CBC, BMP 04/21/17 05:38 04/21/17 05:38 INR, PTT INR 1.55 (0.82-1.09) H D 04/19/17 14:25 - ....Imaging Other: Report Reviewed Assessment/Plan The patient is a 86 year old female, BIBA from Senior housing (living alone) with a significant past medical history of HLD, HTN, Afib (on xarelto/oxtalol), and COPD who presents to the emergency department with difficulty breathing and generalized weakness occurring today.. CXR c/w PNA and also some CHF; hypoNa anxiety, depression admitted to telemetry IV lasix iv ATB nebs, O2 NC cardio and pulm eval prognosis guarded d/w pt and daughter at bedside; DNR DNI; Jill castillo
[2017-04-22] MEDS: ALBUTEROL SO4 0.083% IH SOL 2.5 MG/3 ML VIAL.NEB. NEB PRN ×4 (07:10→22:25)
--- NOTE | 2017-04-22 07:12 | PN ---
Progress Note, Physician History of Present Illness: seen and examined today currently in nad. states that after being turned in bed this am she became SOB and was placed on bipap, now comfortable on bipap. no overnight events. no new complaints. - Current Medication List Current Medications: Active Medications Albuterol Sulfate (Ventolin 0.083% Nebulizer Soln -) 1 amp NEB Q4H PRN PRN Reason: SHORT OF BREATH/WHEEZING Last Admin: 04/21/17 12:02 Dose: 1 amp Atorvastatin Calcium (Lipitor -) 20 mg PO HS [facility] Last Admin: 04/21/17 21:26 Dose: 20 mg Azithromycin (Zithromax 500mg Ivpb (Pre-Docked)) 500 mg IVPB DAILY [facility] Last Admin: 04/21/17 09:05 Dose: 500 mg Ceftriaxone Sodium (Rocephin 1gm Ivpb (Pre-Docked)) 1 gm IVPB DAILY [facility] Last Admin: 04/21/17 09:06 Dose: 1 gm Escitalopram Oxalate (Lexapro -) 10 mg PO DAILY [facility] Last Admin: 04/21/17 09:07 Dose: 10 mg Furosemide (Lasix Injection -) 20 mg IVPUSH DAILY [facility] Last Admin: 04/21/17 09:07 Dose: 20 mg Gabapentin (Neurontin -) 300 mg PO DAILY [facility] Last Admin: 04/21/17 09:06 Dose: 300 mg Metoprolol Succinate (Toprol Xl -) 25 mg PO DAILY [facility] Last Admin: 04/21/17 09:07 Dose: 25 mg Pantoprazole Sodium (Protonix -) 20 mg PO DAILY [facility] Last Admin: 04/21/17 09:06 Dose: 20 mg Ranitidine HCl (Zantac -) 150 mg PO DAILY [facility] Last Admin: 04/21/17 09:07 Dose: 150 mg Rivaroxaban (Xarelto -) 20 mg PO DAILY [facility] Last Admin: 04/21/17 09:07 Dose: 20 mg Tramadol HCl (Ultram -) 50 mg PO HS PRN PRN Reason: PAIN LEVEL 6-10 - Objective Vital Signs: Vital Signs Temperature 98.8 F 04/22/17 05:13 Pulse Rate 83 04/22/17 05:13 Respiratory Rate 20 04/22/17 05:13 Blood Pressure 129/61 04/22/17 05:13 O2 Sat by Pulse Oximetry (%) 95 04/21/17 21:00 Constitutional: Yes: Well Nourished, No Distress, Moderate Distress Eyes: Yes: WNL, Conjunctiva Clear, EOM Intact, PERRL HENT: Yes: WNL, Atraumatic, Normocephalic Neck: Yes: WNL, Supple, Trachea Midline Cardiovascular: Yes: Pulse Irregular, Murmur, S1. No: Bradycardia, Tachycardia , Bruit, JVD, Gallop, Rub, S2, S3, S4, Varicosities Respiratory: Yes: Regular, Diminished, On BiPap. No: Rales, Rhonchi, Wheezes Gastrointestinal: Yes: WNL, Normal Bowel Sounds, Soft. No: Distention, Tenderness Musculoskeletal: Yes: Muscle Weakness Extremities: Yes: WNL Edema: No Peripheral Pulses WNL: Yes Peripheral Pulses: Left Doralis Pedis: 2+, Right Dorsalis Pedis: 2+ Integumentary: Yes: WNL Neurological: Yes: Alert, Oriented Psychiatric: Yes: Alert, Oriented Labs: CBC, BMP 04/21/17 05:38 04/21/17 05:38 INR, PTT INR 1.55 (0.82-1.09) H D 04/19/17 14:25 - ....Imaging Chest X-ray: Report Reviewed, Image Reviewed EKG: Report Reviewed, Image Reviewed Other: Report Reviewed, Image Reviewed (tele-Afib/AFlutter, HR controlled) Assessment/Plan Severe Aortic stenosis -as per previous notes pt has declined consideration for TAVR and has requested hospice -no additional planned inpatient cardiac work up at this point Atrial fibrillation-HR controlled -cont Toprol and Xarelto, previously on Sotalol (now off) SOB-acute on chronic diastolic CHF, valvular CHF, ILD -may have had degree of mild flash pulm edema this am after being turned, improved with bipap -currently overall euvolemic -started on IV Lasix 20mg daily yesterday, transition to po as tolerates -bipap prn
[2017-04-22] MEDS: RANITIDINE HCL 150 MG TABLET (FP) PO SCH (09:02)
[2017-04-22] MEDS: GABAPENTIN 300 MG CAPSULE (FP) PO SCH (09:02)
[2017-04-22] MEDS: AZITHROMYCIN IVPB 500 MG/250 ML D5W PRE-DOCKED IVPB SCH (09:02)
[2017-04-22] MEDS: RIVAROXABAN 20 MG TABLET PO SCH (09:03)
[2017-04-22] MEDS: FUROSEMIDE 40 MG/4 ML INJECTABLE VIAL IVPUSH SCH (09:03)
[2017-04-22] MEDS: METOPROLOL SUCCINATE 25 MG TAB.SR.24H (FP) PO SCH (09:03)
[2017-04-22] MEDS: PANTOPRAZOLE 20 MG TABLET (FP) PO SCH (09:03)
[2017-04-22] MEDS: ESCITALOPRAM OXALATE 10 MG TABLET (FP) PO SCH (09:03)
[2017-04-22] MEDS: cefTRIAXone 1 GM/50 ML BAG (PRE-DOCKED) IVPB SCH (09:04)
--- NOTE | 2017-04-22 13:22 | PN ---
Progress Note (short form) - Note Progress Note: PULMONARY Still dyspneic with minimal movements. Required BiPAP earlier but now on 50% ventimask. Last Vital Signs Temp Pulse Resp BP Pulse Ox 98.4 F 106 H 20 98/56 95 04/22/17 10:00 04/22/17 10:00 04/22/17 10:00 04/22/17 10:00 04/21/17 21:00 Intake & Output 04/19/17 04/20/17 04/21/17 04/22/17 23:59 23:59 23:59 23:59 Intake Total 270 500 180 Output Total 200 Balance 270 300 180 Weight 140 lb 135 lb 6.4 oz 132 lb Gen: tachypneic with speaking Heart: tachycardic, +systolic murmur RUSB Lung: coarse crackles throughout Abd: soft, nontender Ext: no edema CBC, BMP 04/21/17 05:38 04/21/17 05:38 Active Medications Albuterol Sulfate (Ventolin 0.083% Nebulizer Soln -) 1 amp NEB Q4H PRN PRN Reason: SHORT OF BREATH/WHEEZING Last Admin: 04/22/17 07:10 Dose: 1 amp Atorvastatin Calcium (Lipitor -) 20 mg PO HS [facility] Last Admin: 04/21/17 21:26 Dose: 20 mg Azithromycin (Zithromax 500mg Ivpb (Pre-Docked)) 500 mg IVPB DAILY [facility] Last Admin: 04/22/17 09:02 Dose: 500 mg Ceftriaxone Sodium (Rocephin 1gm Ivpb (Pre-Docked)) 1 gm IVPB DAILY [facility] Last Admin: 04/22/17 09:04 Dose: 1 gm Escitalopram Oxalate (Lexapro -) 10 mg PO DAILY [facility] Last Admin: 04/22/17 09:03 Dose: 10 mg Furosemide (Lasix Injection -) 20 mg IVPUSH DAILY [facility] Last Admin: 04/22/17 09:03 Dose: 20 mg Gabapentin (Neurontin -) 300 mg PO DAILY [facility] Last Admin: 04/22/17 09:02 Dose: 300 mg Metoprolol Succinate (Toprol Xl -) 25 mg PO DAILY [facility] Last Admin: 04/22/17 09:03 Dose: 25 mg Pantoprazole Sodium (Protonix -) 20 mg PO DAILY [facility] Last Admin: 04/22/17 09:03 Dose: 20 mg Ranitidine HCl (Zantac -) 150 mg PO DAILY [facility] Last Admin: 04/22/17 09:02 Dose: 150 mg Rivaroxaban (Xarelto -) 20 mg PO DAILY [facility] Last Admin: 04/22/17 09:03 Dose: 20 mg Tramadol HCl (Ultram -) 50 mg PO HS PRN PRN Reason: PAIN LEVEL 6-10 A/P Acute Hypoxic Respiratory Failure Acute Pulmonary Edema Acute on Chronic LV Diastolic Heart Failure Severe Aortic Stenosis Atrial Fibrillation Pulmonary HTN Hyponatremia Lactic Acidosis from hypoxia now resolved - continue lasix - monitor urine output, creatinine - O2 to keep SpO2 >90% - BiPAP as needed to assist in work of breathing - rate control - continue anticoagulation - less likely pneumonia, can d/c antibiotics - she does not want any aggressive or invasive treatments, will accept medical treatment, considering hospice care and placement Problem List - Problems (1) Acute on chronic diastolic (congestive) heart failure Code(s): I50.33 - ACUTE ON CHRONIC DIASTOLIC (CONGESTIVE) HEART FAILURE (2) Atrial fibrillation Code(s): I48.91 - UNSPECIFIED ATRIAL FIBRILLATION (3) Severe aortic stenosis Code(s): I35.0 - NONRHEUMATIC AORTIC (VALVE) STENOSIS (4) Pulmonary hypertension Code(s): I27.2 - OTHER SECONDARY PULMONARY HYPERTENSION (5) ILD (interstitial lung disease) Code(s): J84.9 - INTERSTITIAL PULMONARY DISEASE, UNSPECIFIED (6) Hyponatremia Code(s): E87.1 - HYPO-OSMOLALITY AND HYPONATREMIA (7) Lactic acidosis Code(s): E87.2 - ACIDOSIS (8) Acute pulmonary edema Code(s): J81.0 - ACUTE PULMONARY EDEMA
[2017-04-22] MEDS ORDERED: FUROSEMIDE 40 MG/4 ML INJECTABLE VIAL IVPUSH ONE (18:30)
[2017-04-22] MEDS: ATORVASTATIN CA 20 MG TABLET (FP) PO SCH (21:50)
[2017-04-23] MEDS: ALBUTEROL SO4 0.083% IH SOL 2.5 MG/3 ML VIAL.NEB. NEB PRN (06:03)
--- NOTE | 2017-04-23 08:26 | PN ---
Progress Note, Physician History of Present Illness: seen and examined today in nad. another episode of sob early this am, after receiving albuterol pt felt palpitations then sob. improved with bipap. - Current Medication List Current Medications: Active Medications Albuterol Sulfate (Ventolin 0.083% Nebulizer Soln -) 1 amp NEB Q4H PRN PRN Reason: SHORT OF BREATH/WHEEZING Last Admin: 04/23/17 06:03 Dose: 1 amp Atorvastatin Calcium (Lipitor -) 20 mg PO HS [facility] Last Admin: 04/22/17 21:50 Dose: 20 mg Azithromycin (Zithromax 500mg Ivpb (Pre-Docked)) 500 mg IVPB DAILY [facility] Last Admin: 04/22/17 09:02 Dose: 500 mg Ceftriaxone Sodium (Rocephin 1gm Ivpb (Pre-Docked)) 1 gm IVPB DAILY [facility] Last Admin: 04/22/17 09:04 Dose: 1 gm Escitalopram Oxalate (Lexapro -) 10 mg PO DAILY [facility] Last Admin: 04/22/17 09:03 Dose: 10 mg Furosemide (Lasix Injection -) 20 mg IVPUSH DAILY [facility] Last Admin: 04/22/17 09:03 Dose: 20 mg Gabapentin (Neurontin -) 300 mg PO DAILY [facility] Last Admin: 04/22/17 09:02 Dose: 300 mg Metoprolol Succinate (Toprol Xl -) 25 mg PO DAILY [facility] Last Admin: 04/22/17 09:03 Dose: 25 mg Pantoprazole Sodium (Protonix -) 20 mg PO DAILY [facility] Last Admin: 04/22/17 09:03 Dose: 20 mg Ranitidine HCl (Zantac -) 150 mg PO DAILY [facility] Last Admin: 04/22/17 09:02 Dose: 150 mg Rivaroxaban (Xarelto -) 20 mg PO DAILY [facility] Last Admin: 04/22/17 09:03 Dose: 20 mg Tramadol HCl (Ultram -) 50 mg PO HS PRN PRN Reason: PAIN LEVEL 6-10 - Objective Vital Signs: Vital Signs Temperature 98.7 F 04/23/17 06:00 Pulse Rate 96 H 04/23/17 06:00 Respiratory Rate 20 04/23/17 06:00 Blood Pressure 125/68 04/23/17 06:00 O2 Sat by Pulse Oximetry (%) 93 L 04/23/17 07:00 Constitutional: Yes: Well Nourished, No Distress, Calm Eyes: Yes: WNL, Conjunctiva Clear, EOM Intact, PERRL HENT: Yes: WNL, Atraumatic, Normocephalic Neck: Yes: WNL, Supple, Trachea Midline Cardiovascular: Yes: Regular Rate and Rhythm, Pulse Irregular, Murmur, S1. No: Bradycardia, Tachycardia, Bruit, JVD, Gallop, Rub, S2, S3, S4, Varicosities Respiratory: Yes: Regular, Diminished, On BiPap, Rales, Rhonchi. No: SOB, Wheezes Gastrointestinal: Yes: WNL, Normal Bowel Sounds, Soft. No: Distention, Tenderness Musculoskeletal: Yes: WNL Extremities: Yes: WNL Edema: No Peripheral Pulses WNL: Yes Peripheral Pulses: Left Doralis Pedis: 2+, Right Dorsalis Pedis: 2+ Integumentary: Yes: WNL Neurological: Yes: Alert, Oriented Psychiatric: Yes: Alert, Oriented Labs: CBC, BMP 04/21/17 05:38 04/21/17 05:38 INR, PTT INR 1.55 (0.82-1.09) H D 04/19/17 14:25 - ....Imaging Chest X-ray: Report Reviewed, Image Reviewed EKG: Report Reviewed, Image Reviewed Other: Report Reviewed, Image Reviewed (tele-Afib, HR adequately controlled, 4 beats NSVT) Assessment/Plan Again episode of SOB and palpitations this am after receiving albuterol -hold albuterol if possible -cont Lasix with extra doses prn for sob Severe Aortic stenosis -as per previous notes pt has declined consideration for TAVR and has requested hospice -no additional planned inpatient cardiac work up at this point Atrial fibrillation-HR controlled -cont Toprol and Xarelto, previously on Sotalol (now off) SOB-acute on chronic diastolic CHF, valvular CHF, ILD -cont bipap as needed -currently overall euvolemic, with intermittent episodes of sob possibly from flash pulm edema -cont IV Lasix 20mg daily, transition to po as tolerates
[2017-04-23] MEDS: cefTRIAXone 1 GM/50 ML BAG (PRE-DOCKED) IVPB SCH (09:01)
[2017-04-23] MEDS: FUROSEMIDE 40 MG/4 ML INJECTABLE VIAL IVPUSH SCH (09:02)
[2017-04-23] MEDS: GABAPENTIN 300 MG CAPSULE (FP) PO SCH (09:02)
[2017-04-23] MEDS: PANTOPRAZOLE 20 MG TABLET (FP) PO SCH (09:02)
[2017-04-23] MEDS: ESCITALOPRAM OXALATE 10 MG TABLET (FP) PO SCH (09:02)
[2017-04-23] MEDS: METOPROLOL SUCCINATE 25 MG TAB.SR.24H (FP) PO SCH (09:03)
[2017-04-23] MEDS: RIVAROXABAN 20 MG TABLET PO SCH (09:03)
[2017-04-23] MEDS: RANITIDINE HCL 150 MG TABLET (FP) PO SCH (09:03)
[2017-04-23] MEDS: AZITHROMYCIN IVPB 500 MG/250 ML D5W PRE-DOCKED IVPB SCH (09:04)
--- NOTE | 2017-04-23 10:57 | PN ---
Progress Note, Physician Chief Complaint: in bed on BIPAP, had SOB after breakfast, coughed up yellow phlegm signed DNR DNI, her daughter also signed it previously and agrees with it; I did Cris about mechanical ventilation if her breathing stops or if she is in respiratory failure and not able to breath on her own, about chest compressions if her heart stops, she does NOT want any of the above. - Current Medication List Current Medications: Active Medications Albuterol Sulfate (Ventolin 0.083% Nebulizer Soln -) 1 amp NEB Q4H PRN PRN Reason: SHORT OF BREATH/WHEEZING Last Admin: 04/23/17 06:03 Dose: 1 amp Atorvastatin Calcium (Lipitor -) 20 mg PO HS [facility] Last Admin: 04/22/17 21:50 Dose: 20 mg Azithromycin (Zithromax 500mg Ivpb (Pre-Docked)) 500 mg IVPB DAILY [facility] Last Admin: 04/23/17 09:04 Dose: 500 mg Ceftriaxone Sodium (Rocephin 1gm Ivpb (Pre-Docked)) 1 gm IVPB DAILY [facility] Last Admin: 04/23/17 09:01 Dose: 1 gm Escitalopram Oxalate (Lexapro -) 10 mg PO DAILY [facility] Last Admin: 04/23/17 09:02 Dose: 10 mg Furosemide (Lasix Injection -) 20 mg IVPUSH DAILY [facility] Last Admin: 04/23/17 09:02 Dose: 20 mg Gabapentin (Neurontin -) 300 mg PO DAILY [facility] Last Admin: 04/23/17 09:02 Dose: 300 mg Metoprolol Succinate (Toprol Xl -) 25 mg PO DAILY [facility] Last Admin: 04/23/17 09:03 Dose: 25 mg Pantoprazole Sodium (Protonix -) 20 mg PO DAILY [facility] Last Admin: 04/23/17 09:02 Dose: 20 mg Ranitidine HCl (Zantac -) 150 mg PO DAILY [facility] Last Admin: 04/23/17 09:03 Dose: 150 mg Rivaroxaban (Xarelto -) 20 mg PO DAILY [facility] Last Admin: 04/23/17 09:03 Dose: 20 mg Tramadol HCl (Ultram -) 50 mg PO HS PRN PRN Reason: PAIN LEVEL 6-10 - Objective Vital Signs: Vital Signs Temperature 98.7 F 04/23/17 06:00 Pulse Rate 96 H 04/23/17 06:00 Respiratory Rate 20 04/23/17 06:00 Blood Pressure 125/68 04/23/17 06:00 O2 Sat by Pulse Oximetry (%) 93 L 04/23/17 07:00 Constitutional: Yes: No Distress, Calm Eyes: Yes: Conjunctiva Clear HENT: Yes: Atraumatic Neck: Yes: Supple Cardiovascular: Yes: Regular Rate and Rhythm Respiratory: Yes: Rales, Rhonchi Gastrointestinal: Yes: Soft. No: Distention, Tenderness Genitourinary: No: CVA Tenderness - Left, CVA Tenderness - Right Musculoskeletal: No: Joint Stiffness, Joint Swelling Extremities: No: Calf Tenderness, Cold, Cool Edema: No Integumentary: No: Rash, Venous Stasis Changes Neurological: Yes: WNL, Alert, Oriented ...Motor Strength: WNL Psychiatric: Yes: WNL, Alert, Oriented. No: Agitated, Suicidal Ideation Labs: CBC, BMP 04/21/17 05:38 04/21/17 05:38 INR, PTT INR 1.55 (0.82-1.09) H D 04/19/17 14:25 - ....Imaging Other: Report Reviewed Assessment/Plan The patient is a 86 year old female, BIBA from Senior housing (living alone) with a significant past medical history of HLD, HTN, Afib (on xarelto), and COPD who presents to the emergency department with difficulty breathing and generalized weakness CXR c/w PNA and also some CHF; hypoNa anxiety, depression IV lasix iv ATB nebs, O2 NC cardio and pulm f/u prognosis guarded d/w pt and staff DNR DNI;
--- NOTE | 2017-04-23 14:13 | PN ---
Progress Note (short form) - Note Progress Note: PULMONARY Still dyspneic with minimal movements. Last Vital Signs Temp Pulse Resp BP Pulse Ox 98.7 F 96 H 20 125/68 98 04/23/17 06:00 04/23/17 06:00 04/23/17 06:00 04/23/17 06:00 04/23/17 11:53 Intake & Output 04/20/17 04/21/17 04/22/17 04/23/17 23:59 23:59 23:59 23:59 Intake Total 500 1260 250 Output Total 200 Balance 300 1260 250 Weight 135 lb 6.4 oz 132 lb Gen: tachypneic with speaking Heart: tachycardic, +systolic murmur RUSB Lung: coarse crackles throughout Abd: soft, nontender Ext: no edema CBC, BMP 04/21/17 05:38 04/21/17 05:38 Active Medications Albuterol Sulfate (Ventolin 0.083% Nebulizer Soln -) 1 amp NEB Q4H PRN PRN Reason: SHORT OF BREATH/WHEEZING Last Admin: 04/23/17 06:03 Dose: 1 amp Atorvastatin Calcium (Lipitor -) 20 mg PO HS [facility] Last Admin: 04/22/17 21:50 Dose: 20 mg Azithromycin (Zithromax 500mg Ivpb (Pre-Docked)) 500 mg IVPB DAILY [facility] Last Admin: 04/23/17 09:04 Dose: 500 mg Ceftriaxone Sodium (Rocephin 1gm Ivpb (Pre-Docked)) 1 gm IVPB DAILY [facility] Last Admin: 04/23/17 09:01 Dose: 1 gm Escitalopram Oxalate (Lexapro -) 10 mg PO DAILY [facility] Last Admin: 04/23/17 09:02 Dose: 10 mg Furosemide (Lasix Injection -) 20 mg IVPUSH DAILY [facility] Last Admin: 04/23/17 09:02 Dose: 20 mg Gabapentin (Neurontin -) 300 mg PO DAILY [facility] Last Admin: 04/23/17 09:02 Dose: 300 mg Metoprolol Succinate (Toprol Xl -) 25 mg PO DAILY [facility] Last Admin: 04/23/17 09:03 Dose: 25 mg Pantoprazole Sodium (Protonix -) 20 mg PO DAILY [facility] Last Admin: 04/23/17 09:02 Dose: 20 mg Ranitidine HCl (Zantac -) 150 mg PO DAILY [facility] Last Admin: 04/23/17 09:03 Dose: 150 mg Rivaroxaban (Xarelto -) 20 mg PO DAILY [facility] Last Admin: 04/23/17 09:03 Dose: 20 mg Tramadol HCl (Ultram -) 50 mg PO HS PRN PRN Reason: PAIN LEVEL 6-10 A/P Acute Hypoxic Respiratory Failure Acute Pulmonary Edema Acute on Chronic LV Diastolic Heart Failure Severe Aortic Stenosis Atrial Fibrillation Pulmonary HTN Interstitial Lung Disease Hyponatremia Lactic Acidosis from hypoxia now resolved - continue lasix - monitor urine output, creatinine - O2 to keep SpO2 >90% - BiPAP as needed to assist in work of breathing - rate control - continue anticoagulation - less likely pneumonia, can d/c antibiotics - repeat CXR in AM - she does not want any aggressive or invasive treatments, will accept medical treatment, considering hospice care and placement Problem List - Problems (1) Acute on chronic diastolic (congestive) heart failure Code(s): I50.33 - ACUTE ON CHRONIC DIASTOLIC (CONGESTIVE) HEART FAILURE (2) Atrial fibrillation Code(s): I48.91 - UNSPECIFIED ATRIAL FIBRILLATION (3) Severe aortic stenosis Code(s): I35.0 - NONRHEUMATIC AORTIC (VALVE) STENOSIS (4) Pulmonary hypertension Code(s): I27.2 - OTHER SECONDARY PULMONARY HYPERTENSION (5) ILD (interstitial lung disease) Code(s): J84.9 - INTERSTITIAL PULMONARY DISEASE, UNSPECIFIED (6) Hyponatremia Code(s): E87.1 - HYPO-OSMOLALITY AND HYPONATREMIA (7) Lactic acidosis Code(s): E87.2 - ACIDOSIS (8) Acute pulmonary edema Code(s): J81.0 - ACUTE PULMONARY EDEMA
[2017-04-23] MEDS: ATORVASTATIN CA 20 MG TABLET (FP) PO SCH (22:17)
[2017-04-24] MEDS: AZITHROMYCIN IVPB 500 MG/250 ML D5W PRE-DOCKED IVPB SCH (09:21)
[2017-04-24] MEDS: cefTRIAXone 1 GM/50 ML BAG (PRE-DOCKED) IVPB SCH (09:21)
[2017-04-24] MEDS: FUROSEMIDE 40 MG/4 ML INJECTABLE VIAL IVPUSH SCH (09:21)
--- NOTE | 2017-04-24 12:41 | PN ---
Progress Note, Physician History of Present Illness: pulmonary awake on bipap,-resp distress - Current Medication List Current Medications: Active Medications Albuterol Sulfate (Ventolin 0.083% Nebulizer Soln -) 1 amp NEB Q4H PRN PRN Reason: SHORT OF BREATH/WHEEZING Last Admin: 04/23/17 06:03 Dose: 1 amp Atorvastatin Calcium (Lipitor -) 20 mg PO HS [facility] Last Admin: 04/23/17 22:17 Dose: 20 mg Azithromycin (Zithromax 500mg Ivpb (Pre-Docked)) 500 mg IVPB DAILY [facility] Last Admin: 04/24/17 09:21 Dose: 500 mg Ceftriaxone Sodium (Rocephin 1gm Ivpb (Pre-Docked)) 1 gm IVPB DAILY [facility] Last Admin: 04/24/17 09:21 Dose: 1 gm Escitalopram Oxalate (Lexapro -) 10 mg PO DAILY [facility] Last Admin: 04/23/17 09:02 Dose: 10 mg Furosemide (Lasix Injection -) 20 mg IVPUSH DAILY [facility] Last Admin: 04/24/17 09:21 Dose: 20 mg Gabapentin (Neurontin -) 300 mg PO DAILY [facility] Last Admin: 04/23/17 09:02 Dose: 300 mg Metoprolol Succinate (Toprol Xl -) 25 mg PO DAILY [facility] Last Admin: 04/23/17 09:03 Dose: 25 mg Pantoprazole Sodium (Protonix -) 20 mg PO DAILY [facility] Last Admin: 04/23/17 09:02 Dose: 20 mg Ranitidine HCl (Zantac -) 150 mg PO DAILY [facility] Last Admin: 04/23/17 09:03 Dose: 150 mg Rivaroxaban (Xarelto -) 20 mg PO DAILY [facility] Last Admin: 04/23/17 09:03 Dose: 20 mg Tramadol HCl (Ultram -) 50 mg PO HS PRN PRN Reason: PAIN LEVEL 6-10 - Objective Vital Signs: Vital Signs Temperature 97.7 F 04/24/17 09:00 Pulse Rate 93 H 04/24/17 09:00 Respiratory Rate 20 04/24/17 09:00 Blood Pressure 137/56 04/24/17 09:00 O2 Sat by Pulse Oximetry (%) 93 L 04/24/17 09:00 Constitutional: Yes: Well Nourished, Calm Eyes: Yes: WNL HENT: Yes: WNL Neck: Yes: WNL Cardiovascular: Yes: Pulse Irregular, S1, S2 Respiratory: Yes: Rales, Rhonchi (bilateral rales and scattered rhonchi) Gastrointestinal: Yes: Normal Bowel Sounds, Soft Extremities: Yes: WNL Edema: Yes Labs: CBC, BMP 04/21/17 05:38 04/21/17 05:38 INR, PTT INR 1.55 (0.82-1.09) H D 04/19/17 14:25 - ....Imaging Chest X-ray: Report Reviewed, Image Reviewed Problem List - Problems (1) Acute hypoxemic respiratory failure Code(s): J96.01 - ACUTE RESPIRATORY FAILURE WITH HYPOXIA Assessment/Plan Problem List - Problems (1) Acute on chronic diastolic (congestive) heart failure Code(s): I50.33 - ACUTE ON CHRONIC DIASTOLIC (CONGESTIVE) HEART FAILURE (2) Atrial fibrillation Code(s): I48.91 - UNSPECIFIED ATRIAL FIBRILLATION (3) Severe aortic stenosis Code(s): I35.0 - NONRHEUMATIC AORTIC (VALVE) STENOSIS (4) Pulmonary hypertension Code(s): I27.2 - OTHER SECONDARY PULMONARY HYPERTENSION (5) ILD (interstitial lung disease) Code(s): J84.9 - INTERSTITIAL PULMONARY DISEASE, UNSPECIFIED (6) Hyponatremia Code(s): E87.1 - HYPO-OSMOLALITY AND HYPONATREMIA (7) Lactic acidosis Code(s): E87.2 - ACIDOSIS (8) Acute pulmonary edema Code(s): J81.0 - ACUTE PULMONARY EDEMA Assessment/Plan Acute Hypoxic Respiratory Failure Acute Pulmonary Edema Acute on Chronic LV Diastolic Heart Failure Severe Aortic Stenosis Atrial Fibrillation Pulmonary HTN Hyponatremia Lactic Acidosis from hypoxia now resolved - continue lasix - monitor urine output, creatinine - O2 to keep SpO2 >90% - BiPAP prn if pt cooperative - rate control - continue anticoagulation DR LOO
[2017-04-24] MEDS: ESCITALOPRAM OXALATE 10 MG TABLET (FP) PO SCH (14:06)
[2017-04-24] MEDS: METOPROLOL SUCCINATE 25 MG TAB.SR.24H (FP) PO SCH (14:06)
[2017-04-24] MEDS: RIVAROXABAN 20 MG TABLET PO SCH (14:06)
--- NOTE | 2017-04-24 14:50 | PN ---
Progress Note, Physician History of Present Illness: Patient is an 86 year old woman with significant medical hx of severe aortic stenosis, HLD, HTN, AFib (on Xeralto/ Oxtalol), diastolic CHF, anxiety/ depression (worsened by the of her son late last year), and COPD, who is presenting to the ED with sob chf exacorbation. During admission last month agreed to undergo evaluation for TAVR. Family prefer to have the procedure done at [facility], and will have an outpatient consultation done there, with plans for the TAVR in early May (when family returns from vacation, and can be present to care for her post-procedure) . - Current Medication List Current Medications: Active Medications Albuterol Sulfate (Ventolin 0.083% Nebulizer Soln -) 1 amp NEB Q4H PRN PRN Reason: SHORT OF BREATH/WHEEZING Last Admin: 04/23/17 06:03 Dose: 1 amp Atorvastatin Calcium (Lipitor -) 20 mg PO HS [facility] Last Admin: 04/23/17 22:17 Dose: 20 mg Azithromycin (Zithromax 500mg Ivpb (Pre-Docked)) 500 mg IVPB DAILY [facility] Last Admin: 04/24/17 09:21 Dose: 500 mg Ceftriaxone Sodium (Rocephin 1gm Ivpb (Pre-Docked)) 1 gm IVPB DAILY [facility] Last Admin: 04/24/17 09:21 Dose: 1 gm Escitalopram Oxalate (Lexapro -) 10 mg PO DAILY [facility] Last Admin: 04/24/17 14:06 Dose: 10 mg Furosemide (Lasix Injection -) 20 mg IVPUSH DAILY [facility] Last Admin: 04/24/17 09:21 Dose: 20 mg Gabapentin (Neurontin -) 300 mg PO DAILY [facility] Last Admin: 04/23/17 09:02 Dose: 300 mg Metoprolol Succinate (Toprol Xl -) 25 mg PO DAILY [facility] Last Admin: 04/24/17 14:06 Dose: 25 mg Pantoprazole Sodium (Protonix -) 20 mg PO DAILY [facility] Last Admin: 04/23/17 09:02 Dose: 20 mg Ranitidine HCl (Zantac -) 150 mg PO DAILY [facility] Last Admin: 04/23/17 09:03 Dose: 150 mg Rivaroxaban (Xarelto -) 20 mg PO DAILY [facility] Last Admin: 04/24/17 14:06 Dose: 20 mg Tramadol HCl (Ultram -) 50 mg PO HS PRN PRN Reason: PAIN LEVEL 6-10 - Objective Vital Signs: Vital Signs Temperature 97.7 F 04/24/17 09:00 Pulse Rate 88 04/24/17 13:58 Respiratory Rate 26 H 04/24/17 13:58 Blood Pressure 137/56 04/24/17 09:00 O2 Sat by Pulse Oximetry (%) 95 04/24/17 14:15 Eyes: Yes: WNL, Conjunctiva Clear, EOM Intact HENT: Yes: WNL, Atraumatic, Normocephalic Neck: Yes: WNL, Supple, Trachea Midline Cardiovascular: Yes: Murmur Respiratory: Yes: WNL, Regular, CTA Bilaterally Gastrointestinal: Yes: WNL, Normal Bowel Sounds Genitourinary: Yes: WNL Musculoskeletal: Yes: WNL Extremities: Yes: WNL Edema: No Integumentary: Yes: WNL Neurological: Yes: WNL, Alert, Oriented ...Motor Strength: WNL Psychiatric: Yes: WNL Labs: CBC, BMP 04/21/17 05:38 04/21/17 05:38 INR, PTT INR 1.55 (0.82-1.09) H D 04/19/17 14:25 Problem List - Problems (1) Aortic stenosis Code(s): I35.0 - NONRHEUMATIC AORTIC (VALVE) STENOSIS Qualifiers: Cardiac valve disease etiology: etiology unspecified Qualified Code(s) : I35.0 - Nonrheumatic aortic (valve) stenosis (2) Hyponatremia Code(s): E87.1 - HYPO-OSMOLALITY AND HYPONATREMIA (3) Hypoxia Code(s): R09.02 - HYPOXEMIA (4) Pneumonia Code(s): J18.9 - PNEUMONIA, UNSPECIFIED ORGANISM Qualifiers: Pneumonia type: due to unspecified organism Laterality: right Lung location: lower lobe of lung Qualified Code(s): J18.1 - Lobar pneumonia, unspecified organism (5) Abdominal distension (gaseous) Code(s): R14.0 - ABDOMINAL DISTENSION (GASEOUS) (6) Abdominal pain Code(s): R10.9 - UNSPECIFIED ABDOMINAL PAIN (7) Atrial fibrillation Code(s): I48.91 - UNSPECIFIED ATRIAL FIBRILLATION (8) Back pain Code(s): M54.9 - DORSALGIA, UNSPECIFIED (9) COPD (chronic obstructive pulmonary disease) Code(s): J44.9 - CHRONIC OBSTRUCTIVE PULMONARY DISEASE, UNSPECIFIED (10) Chest pain Code(s): R07.9 - CHEST PAIN, UNSPECIFIED (11) Constipation Code(s): K59.00 - CONSTIPATION, UNSPECIFIED (12) Depression Code(s): F32.9 - MAJOR DEPRESSIVE DISORDER, SINGLE EPISODE, UNSPECIFIED (13) Diastolic CHF Code(s): I50.30 - UNSPECIFIED DIASTOLIC (CONGESTIVE) HEART FAILURE (14) Ear pain Code(s): H92.09 - OTALGIA, UNSPECIFIED EAR Qualifiers: Laterality: bilateral Qualified Code(s): H92.03 - Otalgia, bilateral (15) Flank pain Code(s): R10.9 - UNSPECIFIED ABDOMINAL PAIN (16) HTN (hypertension) Code(s): I10 - ESSENTIAL (PRIMARY) HYPERTENSION (17) HTN, goal below 130/80 Code(s): I10 - ESSENTIAL (PRIMARY) HYPERTENSION (18) Hyponatremia syndrome Code(s): E87.1 - HYPO-OSMOLALITY AND HYPONATREMIA (19) ILD (interstitial lung disease) Code(s): J84.9 - INTERSTITIAL PULMONARY DISEASE, UNSPECIFIED (20) Impaired gait Code(s): R26.9 - UNSPECIFIED ABNORMALITIES OF GAIT AND MOBILITY (21) Intractable back pain Code(s): M54.9 - DORSALGIA, UNSPECIFIED (22) Liver cirrhosis Code(s): K74.60 - UNSPECIFIED CIRRHOSIS OF LIVER (23) Nasal bleeding Code(s): R04.0 - EPISTAXIS (24) Severe aortic stenosis Code(s): I35.0 - NONRHEUMATIC AORTIC (VALVE) STENOSIS Assessment/Plan chf most likely due to as AF HYPONATREMIA LACTIC ACIDOSIS lasix cont outp meds and AC abx will need TAVR
[2017-04-24] MEDS ORDERED: morphine CARPU-JECT 2 MG/1 ML DISP.SYRIN ONE (16:06)
--- NOTE | 2017-04-24 16:28 | PN ---
Progress Note, Physician History of Present Illness: Pt. is asking to be made comfortable. She states that she is not getting better and wants to rest. Pt.'s daughter at bedside. Pt. on BIPAP, w/o SOB, CP, papl., abd. pain. - Current Medication List Current Medications: Active Medications Albuterol Sulfate (Ventolin 0.083% Nebulizer Soln -) 1 amp NEB Q4H PRN PRN Reason: SHORT OF BREATH/WHEEZING Last Admin: 04/23/17 06:03 Dose: 1 amp Atorvastatin Calcium (Lipitor -) 20 mg PO HS [facility] Last Admin: 04/23/17 22:17 Dose: 20 mg Azithromycin (Zithromax 500mg Ivpb (Pre-Docked)) 500 mg IVPB DAILY [facility] Last Admin: 04/24/17 09:21 Dose: 500 mg Ceftriaxone Sodium (Rocephin 1gm Ivpb (Pre-Docked)) 1 gm IVPB DAILY [facility] Last Admin: 04/24/17 09:21 Dose: 1 gm Escitalopram Oxalate (Lexapro -) 10 mg PO DAILY [facility] Last Admin: 04/24/17 14:06 Dose: 10 mg Furosemide (Lasix Injection -) 20 mg IVPUSH DAILY [facility] Last Admin: 04/24/17 09:21 Dose: 20 mg Gabapentin (Neurontin -) 300 mg PO DAILY [facility] Last Admin: 04/23/17 09:02 Dose: 300 mg Metoprolol Succinate (Toprol Xl -) 25 mg PO DAILY [facility] Last Admin: 04/24/17 14:06 Dose: 25 mg Pantoprazole Sodium (Protonix -) 20 mg PO DAILY [facility] Last Admin: 04/23/17 09:02 Dose: 20 mg Ranitidine HCl (Zantac -) 150 mg PO DAILY [facility] Last Admin: 04/23/17 09:03 Dose: 150 mg Rivaroxaban (Xarelto -) 20 mg PO DAILY [facility] Last Admin: 04/24/17 14:06 Dose: 20 mg Tramadol HCl (Ultram -) 50 mg PO HS PRN PRN Reason: PAIN LEVEL 6-10 - Objective Vital Signs: Vital Signs Temperature 98.9 F 04/24/17 15:00 Pulse Rate 88 04/24/17 15:00 Respiratory Rate 22 04/24/17 15:00 Blood Pressure 107/71 04/24/17 15:00 O2 Sat by Pulse Oximetry (%) 95 04/24/17 14:15 Constitutional: Yes: Mild Distress Cardiovascular: Yes: Regular Rate and Rhythm, Murmur, S1, S2 Respiratory: Yes: Regular, Rales, Tachypnea Gastrointestinal: Yes: Normal Bowel Sounds, Soft. No: Tenderness Edema: No Neurological: Yes: Alert, Oriented Labs: CBC, BMP 04/21/17 05:38 04/21/17 05:38 INR, PTT INR 1.55 (0.82-1.09) H D 04/19/17 14:25 - ....Imaging Chest X-ray: Report Reviewed, Image Reviewed Problem List - Problems (1) Acute hypoxemic respiratory failure Code(s): J96.01 - ACUTE RESPIRATORY FAILURE WITH HYPOXIA (2) Acute on chronic diastolic (congestive) heart failure Code(s): I50.33 - ACUTE ON CHRONIC DIASTOLIC (CONGESTIVE) HEART FAILURE (3) Acute pulmonary edema Code(s): J81.0 - ACUTE PULMONARY EDEMA (4) Aortic stenosis Assessment/Plan: severe Code(s): I35.0 - NONRHEUMATIC AORTIC (VALVE) STENOSIS Qualifiers: Cardiac valve disease etiology: etiology unspecified Qualified Code(s) : I35.0 - Nonrheumatic aortic (valve) stenosis (5) Hyponatremia Code(s): E87.1 - HYPO-OSMOLALITY AND HYPONATREMIA (6) Hypoxia Code(s): R09.02 - HYPOXEMIA (7) Pneumonia Code(s): J18.9 - PNEUMONIA, UNSPECIFIED ORGANISM (8) Lactic acidosis Code(s): E87.2 - ACIDOSIS (9) Pulmonary hypertension Code(s): I27.2 - OTHER SECONDARY PULMONARY HYPERTENSION (10) Atrial fibrillation Code(s): I48.91 - UNSPECIFIED ATRIAL FIBRILLATION (11) COPD (chronic obstructive pulmonary disease) Code(s): J44.9 - CHRONIC OBSTRUCTIVE PULMONARY DISEASE, UNSPECIFIED Assessment/Plan Pt.'s condition not better, not tolerating off BIPAP for feeding and with periods of SOB while on it. Pt. was seen by Palliative care team and she made a request for [place] transfer. Pt. now in respiratory distress; pt. and dg. alternative comfort care was reviewed, Morphine was discussed; both agreed with it; befenit sand risks were reviewed, both have opportunities to ask questions; all questions were answered. To start Morphine PRN for Comfort care. For now to continue current treatment. To monitor. Prognosis: poor. Time spent for pt.s' management: 35 min.
[2017-04-24] MEDS: morphine CARPU-JECT 2 MG/1 ML DISP.SYRIN IVPB PRN ×3 (16:42→23:00)
[2017-04-24] MEDS: ATORVASTATIN CA 20 MG TABLET (FP) PO SCH (21:42)
[2017-04-25 05:25] VITALS: PULSE 85
[2017-04-25] MEDS: morphine CARPU-JECT 2 MG/1 ML DISP.SYRIN IVPB PRN (08:49)
[2017-04-25] MEDS: METOPROLOL SUCCINATE 25 MG TAB.SR.24H (FP) PO SCH (10:32)
[2017-04-25] MEDS: RANITIDINE HCL 150 MG TABLET (FP) PO SCH (10:32)
[2017-04-25] MEDS: GABAPENTIN 300 MG CAPSULE (FP) PO SCH (10:33)
[2017-04-25] MEDS: PANTOPRAZOLE 20 MG TABLET (FP) PO SCH (10:33)
[2017-04-25] MEDS: RIVAROXABAN 20 MG TABLET PO SCH (10:33)
[2017-04-25] MEDS: ESCITALOPRAM OXALATE 10 MG TABLET (FP) PO SCH (10:33)
[2017-04-25] MEDS: cefTRIAXone 1 GM/50 ML BAG (PRE-DOCKED) IVPB SCH (10:34)
[2017-04-25] MEDS: AZITHROMYCIN IVPB 500 MG/250 ML D5W PRE-DOCKED IVPB SCH (10:34)
[2017-04-25] MEDS: FUROSEMIDE 40 MG/4 ML INJECTABLE VIAL IVPUSH SCH (10:34)
--- NOTE | 2017-04-25 10:56 | PN ---
Progress Note, Physician History of Present Illness: Patient is an 86 year old woman with significant medical hx of severe aortic stenosis, HLD, HTN, AFib (on Xeralto/ Oxtalol), diastolic CHF, anxiety/ depression (worsened by the of her son late last year), and COPD, who is presenting to the ED with sob chf exacorbation. During admission last month agreed to undergo evaluation for TAVR. Family prefer to have the procedure done at [facility], and will have an outpatient consultation done there, with plans for the TAVR in early May (when family returns from vacation, and can be present to care for her post-procedure) . - Current Medication List Current Medications: Active Medications Albuterol Sulfate (Ventolin 0.083% Nebulizer Soln -) 1 amp NEB Q4H PRN PRN Reason: SHORT OF BREATH/WHEEZING Last Admin: 04/23/17 06:03 Dose: 1 amp Atorvastatin Calcium (Lipitor -) 20 mg PO HS [facility] Last Admin: 04/24/17 21:42 Dose: 20 mg Azithromycin (Zithromax 500mg Ivpb (Pre-Docked)) 500 mg IVPB DAILY [facility] Last Admin: 04/25/17 10:34 Dose: 500 mg Ceftriaxone Sodium (Rocephin 1gm Ivpb (Pre-Docked)) 1 gm IVPB DAILY [facility] Last Admin: 04/25/17 10:34 Dose: 1 gm Escitalopram Oxalate (Lexapro -) 10 mg PO DAILY [facility] Last Admin: 04/25/17 10:33 Dose: 10 mg Furosemide (Lasix Injection -) 20 mg IVPUSH DAILY [facility] Last Admin: 04/25/17 10:34 Dose: 20 mg Gabapentin (Neurontin -) 300 mg PO DAILY [facility] Last Admin: 04/25/17 10:33 Dose: 300 mg Metoprolol Succinate (Toprol Xl -) 25 mg PO DAILY [facility] Last Admin: 04/25/17 10:32 Dose: 25 mg Morphine Sulfate (Morphine Injection -) 1 mg IVPB Q1H PRN PRN Reason: TO EASE RESPIRATION Last Admin: 04/25/17 08:49 Dose: 1 mg Pantoprazole Sodium (Protonix -) 20 mg PO DAILY [facility] Last Admin: 04/25/17 10:33 Dose: 20 mg Ranitidine HCl (Zantac -) 150 mg PO DAILY [facility] Last Admin: 04/25/17 10:32 Dose: 150 mg Rivaroxaban (Xarelto -) 20 mg PO DAILY [facility] Last Admin: 04/25/17 10:33 Dose: 20 mg Tramadol HCl (Ultram -) 50 mg PO HS PRN PRN Reason: PAIN LEVEL 6-10 - Objective Vital Signs: Vital Signs Temperature 98.3 F 04/25/17 05:23 Pulse Rate 85 04/25/17 05:23 Respiratory Rate 27 H 04/25/17 05:23 Blood Pressure 102/63 04/25/17 05:23 O2 Sat by Pulse Oximetry (%) 91 L 04/24/17 20:48 Eyes: Yes: WNL, Conjunctiva Clear, EOM Intact HENT: Yes: WNL, Atraumatic, Normocephalic Neck: Yes: WNL, Supple, Trachea Midline Cardiovascular: Yes: Pulse Irregular, Murmur, S1, S2 Respiratory: Yes: Diminished Gastrointestinal: Yes: WNL, Normal Bowel Sounds Genitourinary: Yes: WNL Musculoskeletal: Yes: WNL Extremities: Yes: WNL Edema: No Integumentary: Yes: WNL Neurological: Yes: WNL, Alert, Oriented ...Motor Strength: WNL Psychiatric: Yes: WNL Labs: CBC, BMP 04/21/17 05:38 04/21/17 05:38 INR, PTT INR 1.55 (0.82-1.09) H D 04/19/17 14:25 Problem List - Problems (1) Aortic stenosis Code(s): I35.0 - NONRHEUMATIC AORTIC (VALVE) STENOSIS Qualifiers: Cardiac valve disease etiology: etiology unspecified Qualified Code(s) : I35.0 - Nonrheumatic aortic (valve) stenosis (2) Hyponatremia Code(s): E87.1 - HYPO-OSMOLALITY AND HYPONATREMIA (3) Hypoxia Code(s): R09.02 - HYPOXEMIA (4) Pneumonia Code(s): J18.9 - PNEUMONIA, UNSPECIFIED ORGANISM (5) Abdominal distension (gaseous) Code(s): R14.0 - ABDOMINAL DISTENSION (GASEOUS) (6) Abdominal pain Code(s): R10.9 - UNSPECIFIED ABDOMINAL PAIN (7) Atrial fibrillation Code(s): I48.91 - UNSPECIFIED ATRIAL FIBRILLATION (8) Back pain Code(s): M54.9 - DORSALGIA, UNSPECIFIED (9) COPD (chronic obstructive pulmonary disease) Code(s): J44.9 - CHRONIC OBSTRUCTIVE PULMONARY DISEASE, UNSPECIFIED (10) Chest pain Code(s): R07.9 - CHEST PAIN, UNSPECIFIED (11) Constipation Code(s): K59.00 - CONSTIPATION, UNSPECIFIED (12) Depression Code(s): F32.9 - MAJOR DEPRESSIVE DISORDER, SINGLE EPISODE, UNSPECIFIED (13) Diastolic CHF Code(s): I50.30 - UNSPECIFIED DIASTOLIC (CONGESTIVE) HEART FAILURE (14) Ear pain Code(s): H92.09 - OTALGIA, UNSPECIFIED EAR Qualifiers: Laterality: bilateral Qualified Code(s): H92.03 - Otalgia, bilateral (15) Flank pain Code(s): R10.9 - UNSPECIFIED ABDOMINAL PAIN (16) HTN (hypertension) Code(s): I10 - ESSENTIAL (PRIMARY) HYPERTENSION (17) HTN, goal below 130/80 Code(s): I10 - ESSENTIAL (PRIMARY) HYPERTENSION (18) Hyponatremia syndrome Code(s): E87.1 - HYPO-OSMOLALITY AND HYPONATREMIA (19) ILD (interstitial lung disease) Code(s): J84.9 - INTERSTITIAL PULMONARY DISEASE, UNSPECIFIED (20) Impaired gait Code(s): R26.9 - UNSPECIFIED ABNORMALITIES OF GAIT AND MOBILITY (21) Intractable back pain Code(s): M54.9 - DORSALGIA, UNSPECIFIED (22) Liver cirrhosis Code(s): K74.60 - UNSPECIFIED CIRRHOSIS OF LIVER (23) Nasal bleeding Code(s): R04.0 - EPISTAXIS (24) Severe aortic stenosis Code(s): I35.0 - NONRHEUMATIC AORTIC (VALVE) STENOSIS Assessment/Plan chf most likely due to as AF HYPONATREMIA LACTIC ACIDOSIS lasix cont outp meds and AC abx paliative care as per family weeks d/c telemetry
--- NOTE | 2017-04-25 11:28 | PN ---
Progress Note, Physician History of Present Illness: PULMONARY LETHARGIC,DYSPNEIC,ON BIPAP,ON MORPHINE PRN - Current Medication List Current Medications: Active Medications Albuterol Sulfate (Ventolin 0.083% Nebulizer Soln -) 1 amp NEB Q4H PRN PRN Reason: SHORT OF BREATH/WHEEZING Last Admin: 04/23/17 06:03 Dose: 1 amp Atorvastatin Calcium (Lipitor -) 20 mg PO HS [facility] Last Admin: 04/24/17 21:42 Dose: 20 mg Azithromycin (Zithromax 500mg Ivpb (Pre-Docked)) 500 mg IVPB DAILY [facility] Last Admin: 04/25/17 10:34 Dose: 500 mg Ceftriaxone Sodium (Rocephin 1gm Ivpb (Pre-Docked)) 1 gm IVPB DAILY [facility] Last Admin: 04/25/17 10:34 Dose: 1 gm Escitalopram Oxalate (Lexapro -) 10 mg PO DAILY [facility] Last Admin: 04/25/17 10:33 Dose: 10 mg Furosemide (Lasix Injection -) 20 mg IVPUSH DAILY [facility] Last Admin: 04/25/17 10:34 Dose: 20 mg Gabapentin (Neurontin -) 300 mg PO DAILY [facility] Last Admin: 04/25/17 10:33 Dose: 300 mg Metoprolol Succinate (Toprol Xl -) 25 mg PO DAILY [facility] Last Admin: 04/25/17 10:32 Dose: 25 mg Morphine Sulfate (Morphine Injection -) 1 mg IVPB Q1H PRN PRN Reason: TO EASE RESPIRATION Last Admin: 04/25/17 08:49 Dose: 1 mg Pantoprazole Sodium (Protonix -) 20 mg PO DAILY [facility] Last Admin: 04/25/17 10:33 Dose: 20 mg Ranitidine HCl (Zantac -) 150 mg PO DAILY [facility] Last Admin: 04/25/17 10:32 Dose: 150 mg Rivaroxaban (Xarelto -) 20 mg PO DAILY [facility] Last Admin: 04/25/17 10:33 Dose: 20 mg Tramadol HCl (Ultram -) 50 mg PO HS PRN PRN Reason: PAIN LEVEL 6-10 - Objective Vital Signs: Vital Signs Temperature 98.3 F 04/25/17 05:23 Pulse Rate 85 04/25/17 10:59 Respiratory Rate 27 H 04/25/17 05:23 Blood Pressure 102/63 04/25/17 05:23 O2 Sat by Pulse Oximetry (%) 92 L 04/25/17 10:59 Constitutional: Yes: Mild Distress, Other (LETHARGIC) Eyes: Yes: WNL HENT: Yes: WNL Neck: Yes: WNL Cardiovascular: Yes: Regular Rate and Rhythm, S1, S2 Respiratory: Yes: Rhonchi (FEW SCATTERED RHONCHI) Gastrointestinal: Yes: Normal Bowel Sounds, Soft Extremities: Yes: WNL Edema: Yes Labs: CBC, BMP Problem List - Problems (1) Acute hypoxemic respiratory failure Code(s): J96.01 - ACUTE RESPIRATORY FAILURE WITH HYPOXIA Assessment/Plan Problem List - Problems (1) Acute on chronic diastolic (congestive) heart failure Code(s): I50.33 - ACUTE ON CHRONIC DIASTOLIC (CONGESTIVE) HEART FAILURE (2) Atrial fibrillation Code(s): I48.91 - UNSPECIFIED ATRIAL FIBRILLATION (3) Severe aortic stenosis Code(s): I35.0 - NONRHEUMATIC AORTIC (VALVE) STENOSIS (4) Pulmonary hypertension Code(s): I27.2 - OTHER SECONDARY PULMONARY HYPERTENSION (5) ILD (interstitial lung disease) Code(s): J84.9 - INTERSTITIAL PULMONARY DISEASE, UNSPECIFIED (6) Hyponatremia Code(s): E87.1 - HYPO-OSMOLALITY AND HYPONATREMIA (7) Lactic acidosis Code(s): E87.2 - ACIDOSIS (8) Acute pulmonary edema Code(s): J81.0 - ACUTE PULMONARY EDEMA Assessment/Plan Acute Hypoxic Respiratory Failure Acute Pulmonary Edema Acute on Chronic LV Diastolic Heart Failure Severe Aortic Stenosis Atrial Fibrillation Pulmonary HTN Hyponatremia Lactic Acidosis from hypoxia now resolved - continue lasix - monitor urine output, creatinine - O2 to keep SpO2 >90% - BiPAP prn if pt cooperative - rate control - anticoagulation - morphine - tranfer to [facility] today DR LOO
[2017-04-25] MEDS ORDERED: morphine CARPU-JECT 2 MG/1 ML DISP.SYRIN IVPB PRN (11:54)
--- NOTE | 2017-04-25 12:09 | DS ---
Physical Examination Vital Signs: Vital Signs Temperature 98.3 F 04/25/17 05:23 Pulse Rate 85 04/25/17 10:59 Respiratory Rate 27 H 04/25/17 05:23 Blood Pressure 102/63 04/25/17 05:23 O2 Sat by Pulse Oximetry (%) 92 L 04/25/17 10:59 Findings/Remarks: Pt. w/o pain, occasionally feels that is hrd to breath (better than yesterday). Pt. w/o CP, abd. pain. Constitutional: Yes: No Distress, Calm Cardiovascular: Yes: Regular Rate and Rhythm, S1, S2 Respiratory: Yes: Regular, Rhonchi Gastrointestinal: Yes: Normal Bowel Sounds, Soft. No: Tenderness Edema: No Neurological: Yes: Alert, Oriented Labs: CBC, BMP 04/21/17 05:38 04/21/17 05:38 Discharge Summary Reason For Visit: AORTIC VALVE STENOSIS Current Active Problems Acute hypoxemic respiratory failure (Acute) Acute on chronic diastolic (congestive) heart failure (Acute) Acute pulmonary edema (Acute) Aortic stenosis (Acute) Hyponatremia (Acute) Hypoxia (Acute) Lactic acidosis (Acute) Pneumonia (Acute) Pulmonary hypertension (Acute) Procedures: Principal: CXRs Hospital Course: Pt. was BIBA from [facility] c/o SOB, weakness; in ER she was found to have acute CHF exacerbation, possible PNA. Pt was admitted to telemetry, started on [place] IV and abtx and BIPAP. Pt.'s condition didn't improve, and she requested [place]. Pt. to be transferred to [place] for comfort care. Condition: Fair - Instructions Diet, Activity, Other Instructions: transfer to [place] for comfort care; DNR DNI Referrals: Joy Gan [Primary Care Provider] - Disposition: TRANSFER ACUTE CARE/OTHER HOSP - Home Medications Comprehensive Discharge Medication List: Ambulatory Orders Atorvastatin Ca [Lipitor] 20 mg PO HS 04/19/17 Escitalopram Oxalate [Lexapro -] 10 mg PO DAILY 04/20/17 Gabapentin [Neurontin] 300 mg PO DAILY 04/20/17 Ranitidine HCl [Zantac] 150 mg PO DAILY 04/20/17 Rivaroxaban [Xarelto -] 20 mg PO DAILY 04/20/17 Tamsulosin HCl [Flomax] 0.4 mg PO DAILY 04/20/17 Tramadol HCl 50 mg PO HS 04/20/17 Albuterol 0.083% Nebulizer [place] [Ventolin 0.083% Nebulizer Soln -] 1 amp NEB Q4H PRN #0 amp 04/22/17 Metoprolol Succinate [Toprol XL -] 25 mg PO DAILY tab 04/22/17 Pantoprazole Sodium [Protonix -] 20 mg PO DAILY tab 04/22/17
[2017-04-25 18:25] VITALS: BP 111/75; TEMP 97.8
== END 2017-04-25 14:21 | disposition hospice, inpatient (51) | DRG 291 ==
LOC: JER 13:03 → JERBED 16:17 → J4W 20:37
PROVIDERS: ADMIT Internal Medicine; ATTEND Internal Medicine
DX: I11.0 Hypertensive heart disease with heart failure (principal); J96.01 Acute respiratory failure with hypoxia; J18.9 Pneumonia, unspecified organism; E87.1 Hypo-osmolality and hyponatremia; J84.9 Interstitial pulmonary disease, unspecified; E87.2 Acidosis; I50.33 Acute on chronic diastolic (congestive) heart failure; E78.5 Hyperlipidemia, unspecified; J44.9 Chronic obstructive pulmonary disease, unspecified; K58.9 Irritable bowel syndrome, unspecified; I35.0 Nonrheumatic aortic (valve) stenosis; F41.8 Other specified anxiety disorders; M47.9 Spondylosis, unspecified; R10.9 Unspecified abdominal pain; K59.00 Constipation, unspecified; Z66 Do not resuscitate; I48.91 Unspecified atrial fibrillation; Z79.01 Long term (current) use of anticoagulants
CPT/HCPCS: 36415; 71010-TC; 80048; 80053; 81003; 81015; 82550; 83605; 83880; 84443; 84484; 85025; 85610; 87040; 93005; 93010; 94640; 94660; 99283-25